=== PATIENT | male | born 1945 | race Caucasian/White ===

== ENCOUNTER 2016-11-04 12:07 | Emergency (ER) | payer OTHER ==
[~2016-11-04] VITALS: Ht 182.9 cm; Wt 87.3 kg
[2016-11-04 12:26] VITALS: BP 115/67; PULSE 80; RESP 18; TEMP 98; O2SAT 98
--- NOTE | 2016-11-04 13:33 | PD ---
HPI . left hand skin tear earlier today Chief Complaint: Skin Problem Time Seen by Provider: 14:00 Travel History International Travel<30 days: No Contact w/Intl Traveler<30days: No Traveled to known affect area: No History of Present Illness HPI 71-year-old male here with complaints of left hand abrasion/skin tear. Patient was unloading something out of his truck and the trunk fell down and hit his left hand. He tells me he did not want to come in but his forced him in here. He has a small abrasion to his left hand. He is not up-to-date on his tetanus and declines any injections or administrations of vaccines her medications. He is reiterating to me that he does not want to be here and needs to get out as soon as possible. He denies any pain. PFSH Past Medical History Cancer: Yes (thyroid) Cardiac Catheterization: Yes (3 stents) Hypertension: Yes Tetanus Vaccination: < 5 Years Influenza Vaccination: No Past Surgical History Appendectomy: Yes Other Surgery: Yes (thyroid cancer) Social History Alcohol Use: Yes (seldom) Tobacco Use: Yes (1 pk daily) Substance Use: No Allergies-Medications (Allergen,Severity, Reaction): Coded Allergies: Ampicillin (Verified Allergy, Mild, nausea/vomiting, 11/04/16) Reported Meds & Prescriptions Reported Meds & Active Scripts Active Active Prescriptions or Reported Medications Unobtainable Review of Systems General / Constitutional: No: Fever Eyes: No: Visual changes HENT: No: Headaches Cardiovascular: No: Chest Pain or Discomfort Respiratory: No: Shortness of Breath Gastrointestinal: No: Abdominal Pain Genitourinary: No: Dysuria Musculoskeletal: No: Pain Skin: Positive Other (skin tear left hand), No Rash Neurologic: No: Weakness Psychiatric: No: Depression Endocrine: No: Polydipsia Hematologic/Lymphatic: No: Easy Bruising Physical Exam Narrative GENERAL: AAO x 3, no acute distress, Well-nourished, well-developed patient. SKIN: Warm and dry. No visible rashes. Left dorsum of hand with small 5 cm circular skin tear, with hanging skin, very superficial, not amendable to repair with sutures. HEAD: Normocephalic and atraumatic. EYES: No scleral icterus. No injection or drainage. ENT: No nasal drainage noted. Mucous membranes pink. Airway patent. NECK: Supple, trachea midline. No JVD. CARDIOVASCULAR: Regular rate and rhythm without murmurs, gallops, or rubs. RESPIRATORY: Breath sounds equal bilaterally. No accessory muscle use. No rhonchi or rales. GASTROINTESTINAL: Abdomen soft, non-tender, nondistended. EXTREMITIES: No cyanosis or edema. BACK: Nontender without obvious deformity. No CVA tenderness. PSYCH: AAO x 3, normal affect. Data Data Last Documented VS Vital Signs Date Time Temp Pulse Resp B/P Pulse Ox O2 Delivery O2 Flow Rate FiO2 11/04/16 12:26 98.0 80 18 115/67 98 Orders Wound Care (11/04/16 13:35) MDM Medical Decision Making Medical Screen Exam Complete: Yes Emergency Medical Condition: Yes Medical Record Reviewed: Yes Differential Diagnosis skin abrasion, laceration, less likely cellulitis, Narrative Course 71-year-old male here with complaints of left hand abrasion/skin tear. Patient was unloading something out of his truck and the trunk fell down and hit his left hand. He tells me he did not want to come in but his forced him in here. He has a small abrasion to his left hand. He is not up-to-date on his tetanus and declines any injections or administrations of vaccines her medications. He is reiterating to me that he does not want to be here and needs to get out as soon as possible. He denies any pain. Patient seen and examined. He has a small skin tear to the left hand on the dorsum. Recommend general wound care. Area was cleaned with saline, antibiotic ointment and sterile dressing applied. declines tetanus wound care discussed Patient verbalized understanding of instructions, questions were answered, and thanked me for their care. I advised them if their condition worsens, please return to the nearest emergency room for further care. Diagnosis Primary Impression: Abrasion of left hand Qualified Code: S60.512A - Abrasion of left hand, initial encounter Patient Instructions: Acute Wound Care (ED), General Instructions Additional Instructions: [place] for worsening signs of infection which include increased redness, increased warmth, purulent drainage, increased swelling or streaking. Washing with soap and water daily. Apply clean dressing with topical antibiotic ointment daily. If any signs of infection, return to the nearest emergency department or follow- up with primary care provider. Follow up with your primary care provider in the next week. Scripts Unable to Obtain Active Prescriptions or Reported Meds Disposition: 01 DISCHARGE HOME Condition: Stable Yael Shirley Nov 04, 2016 13:33
== END 2016-11-04 14:24 | disposition home or self-care (01) ==
LOC: PHED 12:07 → PHEFT 14:24
DX: S60.512A Abrasion of left hand, initial encounter (principal); F17.210 Nicotine dependence, cigarettes, uncomplicated; I10 Essential (primary) hypertension; Z95.818 Presence of other cardiac implants and grafts
CPT/HCPCS: 99282

== ENCOUNTER 2017-04-14 21:05 | Observation (INO) | payer MEDICARE, OTHER ==
[~2017-04-14] VITALS: Ht 182.9 cm; Wt 84.7 kg
[2017-04-14 21:26] VITALS: BP 139/67; PULSE 83; RESP 18; TEMP 97.9
[2017-04-14] MEDS ORDERED: ATEN25TA PO (21:49)
[2017-04-14] MEDS ORDERED: HYDR-3516 PO (21:49)
[2017-04-14] MEDS ORDERED: LEVO125T4 PO (21:49)
[2017-04-14] MEDS ORDERED: LISI-515 PO (21:49)
[2017-04-14] MEDS ORDERED: ORPHENADRINE INJ 60 MG/2 ML AMP IM ONE (22:30)
[2017-04-14] MEDS ORDERED: KETOROLAC TROMETHAMINE 30 MG/ML (IVP) VIAL IV PUSH ONE (22:30)
[2017-04-14 22:45] LABS: BLOOD, URINE TRACE (NEG); GLUCOSE,URINE NEG (NEG); KETONE, URINE NEG (NEG); NITRITE,URINE NEG (NEG)
[2017-04-14 22:47] LABS: URINE COLOR YELLOW (YELLW/STRAW)
[2017-04-14 22:50] LABS: COMMENT (UR) CULT NOT INDICATED; CULTURE IF INDICATED CULT NOT INDICATED; RBC, URINE 0-3 /hpf (0-3); SQUAMOUS EPITHELIAL CELL URINE 0-5 /hpf (0-5); WBC, URINE 0-2 /hpf (0-5)
[2017-04-14] MEDS ORDERED: SODIUM CHLOR 0.9% 1000 ML INJ 1,000 ML IV ONE (22:53)
--- NOTE | 2017-04-14 23:00 | PD ---
HPI Chief Complaint: Musculoskeletal Complaint Time Seen by Provider: 22:29 Travel History International Travel<30 days: No Contact w/Intl Traveler<30days: No Traveled to known affect area: No History of Present Illness HPI 72-year-old male presents to the emergency room for evaluation of right-sided back pain for the past week. He went to his primary care physician 4 days ago and was given a prescription for tramadol. He called his primary care physician today to say that the prescription was not working and it was changed to Lortab. He last took Lortab a few hours prior to arrival and states it has not helped his pain at all. Patient also apply topical pain cream without relief. States it changed in quality from aching pain to spasms today. Pain is intermittent, sharp, severe. Worse with certain range of motion. No radiation. He has history of kidney stones 4 years ago and states this does not feel the same. Denies fever, chills, nausea, vomiting, dysuria, urgency, and frequency. PFSH Past Medical History Cancer: Yes (Thyroid) Cardiac Catheterization: Yes (3 stents) Cardiovascular Problems: Yes (Stents groin ) Hypertension: Yes Respiratory: Yes (Rt. lung mass) Tetanus Vaccination: > 5 Years Influenza Vaccination: No Past Surgical History Appendectomy: Yes Cholecystectomy: Yes Endocrine Surgery: Yes (Thyroidectomy ) Other Surgery: Yes (Face) Social History Alcohol Use: Yes (Occ.) Tobacco Use: No Substance Use: No Allergies-Medications (Allergen,Severity, Reaction): Coded Allergies: ampicillin (Unverified Adverse Reaction, Severe, N/V, 04/14/17) Reported Meds & Prescriptions Reported Meds & Active Scripts Active Reported Hydrocodone-Acetaminophen 5-325 mg Tab 1 Tab PO Q6H PRN Levothyroxine (Levothyroxine Sodium) 125 Mcg Tab 125 Mcg PO DAILY Atenolol 25 Mg Tab 25 Mg PO DAILY Lisinopril 20 Mg Tab 20 Mg PO DAILY Review of Systems Except as stated in HPI: all other systems reviewed are Neg Physical Exam Narrative GENERAL: Well-nourished, well-developed male in no acute distress. Afebrile. Ambulatory. SKIN: Focused skin assessment warm/dry. HEAD: Normocephalic. EYES: No scleral icterus. No injection or drainage. NECK: Supple, trachea midline. No JVD or lymphadenopathy. CARDIOVASCULAR: Regular rate and rhythm without murmurs, gallops, or rubs. RESPIRATORY: Breath sounds equal bilaterally. No accessory muscle use. BACK: No midline tenderness. No obvious deformity. Extreme right-sided CVA tenderness. Data Data Last Documented VS Vital Signs Date Time Temp Pulse Resp B/P (MAP) Pulse Ox O2 Delivery O2 Flow Rate FiO2 04/15/17 02:10 88 20 04/15/17 02:00 146/71 (96) 96 04/14/17 21:26 97.9 Orders Orders Urinalysis - C+S If Indicated (04/14/17 22:29) Orphenadrine Inj (Norflex Inj) (04/14/17 22:30) Ketorolac Inj (Toradol Inj) (04/14/17 22:30) Iv Access Insert/Monitor (04/14/17 22:29) Ct Abd/Pel W/O Iv Contrast (04/14/17 22:53) Sodium Chlor 0.9% 1000 Ml Inj (Ns 1000 M (04/14/17 22:53) Ketorolac Inj (Toradol Inj) (04/15/17 01:00) Hydromorphone Pf Inj (Dilaudid Pf Inj) (04/15/17 01:00) Ondansetron Inj (Zofran Inj) (04/15/17 01:00) Chest, Pa & Lat (04/15/17 01:32) Place In Observation (04/15/17 ) Vital Signs (Adult) Q4H (04/15/17 02:43) Activity Oob With Assistance (04/15/17 02:43) Desktop Support Engineer / Telemetry .CONTINUOUS (04/15/17 02:43) Diet Heart Healthy (04/15/17 Breakfast) Sodium Chloride 0.9% Flush (Ns Flush) (04/15/17 02:45) Sodium Chloride 0.9% Flush (Ns Flush) (04/15/17 09:00) Case Management Consult (04/15/17 02:43) Naloxone Inj (Narcan Inj) (04/15/17 02:45) Hydromorphone Pf Inj (Dilaudid Pf Inj) (04/15/17 02:45) Comprehensive Metabolic Panel (04/15/17 02:43) Complete Blood Count With Diff (04/15/17 02:43) Act Partial Throm Time (Ptt) (04/15/17 02:43) Prothrombin Time / Inr (Pt) (04/15/17 02:43) ^ Other Nursing Orders (04/15/17 02:43) Admit Order (Ed Use Only) (04/15/17 02:54) Labs Laboratory Tests Test 04/14/17 22:42 04/15/17 02:52 Urine Color YELLOW Urine Turbidity CLEAR Urine pH 6.0 Urine Specific [place] 1.020 Urine Protein NEG mg/dL Urine Glucose (UA) NEG mg/dL Urine Ketones NEG mg/dL Urine Occult Blood TRACE Urine Nitrite NEG Urine Bilirubin NEG Urine Leukocyte Esterase NEG Urine RBC 0-3 /hpf Urine WBC 0-2 /hpf Urine Squamous Epithelial Cells 0-5 /hpf Microscopic Urinalysis Comment CULT NOT INDICATED White Blood Count 17.8 TH/MM3 Red Blood Count 5.62 MIL/MM3 Hemoglobin 14.4 GM/DL Hematocrit 44.1 % Mean Corpuscular Volume 78.6 FL Mean Corpuscular Hemoglobin 25.5 PG Mean Corpuscular Hemoglobin Concent 32.5 % Red Cell Distribution Width 15.0 % Platelet Count 308 TH/MM3 Mean Platelet Volume 7.9 FL Neutrophils (%) (Auto) 79.4 % Lymphocytes (%) (Auto) 11.6 % Monocytes (%) (Auto) 6.4 % Eosinophils (%) (Auto) 1.4 % Basophils (%) (Auto) 1.2 % Neutrophils # (Auto) 14.2 TH/MM3 Lymphocytes # (Auto) 2.1 TH/MM3 Monocytes # (Auto) 1.1 TH/MM3 Eosinophils # (Auto) 0.2 TH/MM3 Basophils # (Auto) 0.2 TH/MM3 CBC Comment AUTO DIFF Differential Comment AUTO DIFF CONFIRMED Platelet Estimate NORMAL Platelet Morphology Comment NORMAL Prothrombin Time 10.7 SEC Prothromb Time International Ratio 1.0 RATIO Activated Partial Thromboplast Time 27.8 SEC Blood Urea Nitrogen 14 MG/DL Creatinine 0.86 MG/DL Random Glucose 120 MG/DL Total Protein 7.2 GM/DL Albumin 3.5 GM/DL Calcium Level 9.1 MG/DL Alkaline Phosphatase 110 U/L Aspartate Amino Transf (AST/SGOT) 37 U/L Alanine Aminotransferase (ALT/SGPT) 47 U/L Total Bilirubin 0.5 MG/DL Sodium Level 137 MEQ/L Potassium Level 4.1 MEQ/L Chloride Level 104 MEQ/L Carbon Dioxide Level 24.6 MEQ/L Anion Gap 8 MEQ/L Estimat Glomerular Filtration Rate 87 ML/MIN [facility] Medical Decision Making Medical Screen Exam Complete: Yes Emergency Medical Condition: Yes Medical Record Reviewed: Yes Differential Diagnosis Muscle spasm, nephrolithiasis, kidney infection, referred pain from lung Narrative Course 72-year-old male presents to the emergency room for evaluation of right-sided back pain for the past week that worsened over the past day. Denies trauma or injury. No midline tenderness. No focal neurological deficits. Patient is ambulatory. UA shows trace blood. CT abdomen and pelvis without contrast is ordered and pending. CBC and BMP are ordered and pending. Patient signed out to nighttime provider pending blood work and CT. Condition: Stable Anay De La Rosa Apr 14, 2017 23:00
--- NOTE | 2017-04-14 23:52 | RADRPT ---
EXAM DATE/TIME: 04/14/2017 23:06 [facility] COMPARISON: No previous studies available for comparison. INDICATIONS : Right upper quadrant pain, flank pain. ORAL CONTRAST: No oral contrast ingested. RADIATION DOSE: 17.57 CTDIvol (mGy) MEDICAL HISTORY : Hypertension. Right lung mass, stents in groin SURGICAL HISTORY : Appendectomy. Cholecystectomy. ENCOUNTER: Initial ACUITY: 1 day PAIN SCALE: 10/10 LOCATION: Right upper quadrant TECHNIQUE: Volumetric scanning of the abdomen and pelvis was performed. Using automated exposure control and ad justment of the mA and/or kV according to patient size, radiation dose was kept as low as reasonably achievable to obtain optimal diagnostic quality images. DICOM format image data is available electro nically for review and comparison. FINDINGS: LOWER LUNGS: Lung bases demonstrate no acute finding. LIVER: Homogeneous density without lesion. There is no dilation of the biliary tree. There is been prior c holecystectomy clips in the gallbladder fossa. SPLEEN: Normal size without lesion. PANCREAS: No acute abnormality. KIDNEYS: Normal in size and shape. There is no mass, stone, or hydronephrosis. There are 5 low density lesion s in the left kidney ranging in size from 9 mm up to 6.5 cm. These lesions have density measurements characteristic of simple cysts. Exophytically arising from the right mid kidney is a low density lesi on measuring 12 mm and there is an additional low-density lesion at the upper pole the right kidney m easuring 12 mm. Both of these also have density measurements characteristic of cysts. ADRENAL GLANDS: There is a right adrenal gland mass on the lateral limb measuring 13 mm. Hounsfield measurements are 41. A left adrenal gland mass arising from the inferior body and lateral limb measures 14 mm and has Hounsfield measurements of -3. VASCULAR: There is no aortic aneurysm. There is severe atherosclerotic disease of the infrarenal aorta. There a re bilateral common iliac artery stents. BOWEL/MESENTERY: The stomach, small bowel, and colon demonstrate no acute abnormality. There is no free intraperitone al air or fluid. There is sigmoid diverticulosis. ABDOMINAL WALL: No acute abnormality. There is a subcutaneous nodule in the right gluteal region measuring 12 mm. RETROPERITONEUM: There is no lymphadenopathy. BLADDER: No wall thickening or mass. REPRODUCTIVE: Mild prostatomegaly. INGUINAL: There is no lymphadenopathy or hernia. MUSCULOSKELETAL: There are degenerative changes of the lumbar spine but no acute osseous abnormality is present. CONCLUSION: 1. No acute findings identified to explain the right flank pain. 2. There are bilateral adrenal gland masses. The left adrenal gland mass has features diagnostic of a n adrenal adenoma. The right adrenal gland mass measures 13 mm and does not meet criteria for an peggy loco. Suggest correlating with any prior outside imaging studies. If none are available suggest six-mo nth followup noncontrast CT to confirm stability. 3. Nonacute findings include severe atherosclerotic disease, bilateral renal cysts, and sigmoid diver ticulosis. Paulino Leonardo MD on April 14, 2017 at 23:43 Board Certified Radiologist. This report was verified electronically.
[2017-04-15] VITALS (7 sets, daily range): BP systolic 134–155; BP diastolic 70–85; PULSE 76–92; RESP 18–20; TEMP 96.8–99.2; O2SAT 95–98
[2017-04-15] MEDS ORDERED: KETOROLAC TROMETHAMINE 60 MG/2 ML (IM) VIAL IM ONE (01:00)
[2017-04-15] MEDS ORDERED: ONDANSETRON HCL 4 MG/2 ML VIAL IM ONE (01:00)
[2017-04-15] MEDS ORDERED: HYDROmorphone HCL PF 1 MG/ML VIAL IM ONE (01:00)
--- NOTE | 2017-04-15 02:12 | RADRPT ---
EXAM DATE/TIME: 04/15/2017 01:46 [facility] COMPARISON: No previous studies available for comparison. INDICATIONS : Rib pain on right posterior side. MEDICAL HISTORY : Hypertension. Right lung mass, stents in groin SURGICAL HISTORY : Appendectomy. Cholecystectomy ENCOUNTER: Initial ACUITY: 1 day PAIN SCORE: 10/10 LOCATION: Right posterior ribs FINDINGS: AP and lateral views of the chest demonstrate a normal-sized cardiac silhouette with calcification of the aorta. There is partial obscuration of the left hemidiaphragm. Interstitial prominence is presen t bilaterally. There is atelectasis versus consolidation of the left lung base. No pneumothorax or pl eural effusion is visualized. Bones and soft tissues demonstrate no acute finding. CONCLUSION: Atelectasis versus mild consolidation at the left lung base. No pleural effusion is identified. No ac [place] osseous abnormality is identified. Paulino Leonardo MD on April 15, 2017 at 2:09 Board Certified Radiologist. This report was verified electronically.
[2017-04-15] MEDS ORDERED: SODIUM CHLORIDE 0.9% FLUSH 10 ML FLUSH IV FLUSH PRN (02:45)
[2017-04-15] MEDS ORDERED: NALOXONE HCL 0.4 MG/ML AMP IV PRN (02:45)
--- NOTE | 2017-04-15 02:54 | PD ---
Physical Exam Time Seen by Provider: 02:46 Narrative The physician trade sales assistant, Anay De La Rosa left this patient with me to check the CT scan results and make a disposition. Data Data Last Documented VS Vital Signs Date Time Temp Pulse Resp B/P (MAP) Pulse Ox O2 Delivery O2 Flow Rate FiO2 04/14/17 21:26 97.9 83 18 139/67 (91) Orders Orders Urinalysis - C+S If Indicated (04/14/17 22:29) Orphenadrine Inj (Norflex Inj) (04/14/17 22:30) Ketorolac Inj (Toradol Inj) (04/14/17 22:30) Iv Access Insert/Monitor (04/14/17 22:29) Complete Blood Count With Diff (04/14/17 22:53) Basic Metabolic Panel (Bmp) (04/14/17 22:53) Ct Abd/Pel W/O Iv Contrast (04/14/17 22:53) Sodium Chlor 0.9% 1000 Ml Inj (Ns 1000 M (04/14/17 22:53) Ketorolac Inj (Toradol Inj) (04/15/17 01:00) Hydromorphone Pf Inj (Dilaudid Pf Inj) (04/15/17 01:00) Ondansetron Inj (Zofran Inj) (04/15/17 01:00) Chest, Pa & Lat (04/15/17 01:32) Labs Laboratory Tests Test 04/14/17 22:42 Urine Color YELLOW Urine Turbidity CLEAR Urine pH 6.0 Urine Specific [place] 1.020 Urine Protein NEG mg/dL Urine Glucose (UA) NEG mg/dL Urine Ketones NEG mg/dL Urine Occult Blood TRACE Urine Nitrite NEG Urine Bilirubin NEG Urine Leukocyte Esterase NEG Urine RBC 0-3 /hpf Urine WBC 0-2 /hpf Urine Squamous Epithelial Cells 0-5 /hpf Microscopic Urinalysis Comment CULT NOT INDICATED MDM Medical Record Reviewed: Yes Supervised Visit with [place]: Yes Interpretation(s) The CT abdomen/pelvis without IV contrast shows no acute findings to explain the patient's right flank pain but there are bilateral adrenal gland masses characteristic of adrenal adenomas. Nonacute findings include severe atherosclerotic disease, bilateral renal cyst and sigmoid diverticulosis. The chest x-ray shows atelectasis versus pneumonia left lung base. No effusions or other infiltrate is noted and nothing is noted on the right side where the patient's pain is.The urine shows trace occult blood but is otherwise normal and culture is not indicated. Differential Diagnosis Acute cholecystitis, colitis, chest wall pain, pulmonary embolus-highly unlikely , pneumonia, pneumothorax, hemothorax Narrative Course The patient has chest wall pain which is intractable. He says he does not want to go home and end up laying on the floor in pain and having to come back. He wants to be admitted and his wants him to be admitted for control of the pain. He has tried pain medications at home prescribed by his primary care physician without success. The patient will be [address] Mejia. The urine shows trace occult blood but is otherwise normal and culture is not indicated. Physician Communication Physician Communication I discussed the patient with Dr. Mejia, the patient will be admitted for 23 hour observation to her. Diagnosis Primary Impression: Musculoskeletal pain Admitting Information Admitting Physician Requests: Observation Condition: Stable Jerome Bar MD Apr 15, 2017 02:54
[2017-04-15 03:01] LABS: AUTOMATED NEUTROPHIL # 14.2 TH/MM3 (1.8-7.7); BASOPHIL # 0.2 TH/MM3 (0-0.2); BASOPHIL % 1.2 % (0.0-2.0); EOSINOPHIL # 0.2 TH/MM3 (0-0.4); EOSINOPHIL % 1.4 % (0.0-4.0); HEMATOCRIT 44.1 % (39.0-51.0); LYMPH % 11.6 % (9.0-44.0); LYMPHOCYTE # 2.1 TH/MM3 (1.0-4.8); MEAN CELL VOLUME 78.6 FL (80.0-100.0); MEAN CORPUSCULAR HEMOGLOBIN 25.5 PG (27.0-34.0); MEAN CORPUSCULAR HGB CONC 32.5 % (32.0-36.0); MONO % 6.4 % (0.0-8.0); NEUT % 79.4 % (16.0-70.0); PLATELET COUNT 308 TH/MM3 (150-450); RED BLOOD COUNT 5.62 MIL/MM3 (4.50-5.90); WHITE BLOOD COUNT 17.8 TH/MM3 (4.0-11.0)
[2017-04-15 03:09] LABS: CHLORIDE 104 MEQ/L (98-107); POTASSIUM 4.1 MEQ/L (3.5-5.1); SODIUM (NA) 137 MEQ/L (136-145)
[2017-04-15 03:12] LABS: ANION GAP 8 MEQ/L (5-15); BICARBONATE 24.6 MEQ/L (21.0-32.0)
[2017-04-15 03:13] LABS: APTT (PATIENT) 27.8 SEC (24.3-30.1); BLOOD UREA NITROGEN 14 MG/DL (7-18); HEMO FLAGS AUTO DIFF; PROTHROMBIN TIME - PATIENT 10.7 SEC (9.8-11.6)
[2017-04-15 03:15] LABS: ALT (GPT) 47 U/L (12-78)
[2017-04-15 03:16] LABS: AST (GOT) 37 U/L (15-37); GLOMERULAR FILTRATION RATE 87 ML/MIN (>89)
[2017-04-15 03:17] LABS: TOTAL BILIRUBIN ADULT 0.5 MG/DL (0.2-1.0)
[2017-04-15 03:18] LABS: ALKALINE PHOSPHATASE 110 U/L (45-117)
[2017-04-15 03:28] LABS: PLATELET ESTIMATE SMEAR NORMAL (NORMAL); PLATELET MORPHOLOGY NORMAL (NORMAL); SCAN/DIFF AUTO DIFF CONFIRMED
[2017-04-15] MEDS: HYDROmorphone HCL PF 1 MG/ML VIAL IV PUSH PRN ×2 (06:29→10:45)
[2017-04-15] MEDS: SODIUM CHLORIDE 0.9% FLUSH 10 ML FLUSH IV FLUSH SCH ×2 (08:53→22:19)
--- NOTE | 2017-04-15 14:29 | HHI.HP ---
HPI Service [facility] Primary Care Physician Krishna Arteaga M.D. Admission Diagnosis musculoskeletal pain Diagnoses: Chief Complaint: back pain Travel History International Travel<30 Days: No Contact w/Intl Traveler <30 Da: No Traveled to Known Affected Are: No History of Present Illness 72 male with new lung mass being evaluated by his pcp and for biopsy next week complains of 1 week of right mid thoracic severe back pain and spasms not improved with recent tramadol or hydrocodone prescribed by his PCP. The pain was so severe he called 911. He is seen in his room with minimal pain after dilaudid. Review of Systems Constitutional: DENIES: Diaphoretic episodes, Fatigue, Fever, Weight gain, Weight loss, Chills, Dizziness, Change in appetite, Night Sweats Endocrine: DENIES: Heat/cold intolerance, Polydipsia, Polyuria, Polyphagia Eyes: DENIES: Blurred vision, Diplopia, Eye inflammation, Eye pain, Vision loss , Photosensitivity, Double Vision Ears, nose, mouth, throat: DENIES: Tinnitus, Hearing loss, Vertigo, Nasal discharge, Oral lesions, Throat pain, Hoarseness, Ear Pain, Running Nose, Epistaxis, Sinus Pain, Toothache, Odynophagia Respiratory: DENIES: Apneas, Cough, Snoring, Wheezing, Hemoptysis, Sputum production, Shortness of breath Cardiovascular: DENIES: Chest pain, Palpitations, Syncope, Dyspnea on Exertion , PND, Lower Extremity Edema, Orthopnea, Claudication Gastrointestinal: DENIES: Abdominal pain, Black stools, Bloody stools, Constipation, Diarrhea, Nausea, Vomiting, Difficulty Swallowing, Anorexia Musculoskeletal: COMPLAINS OF: Muscle aches, Back pain, DENIES: Joint pain, Stiffness, Joint Swelling, Neck pain Integumentary: DENIES: Abnormal pigmentation, Nail changes, Pruritus, Rash Hematologic/lymphatic: DENIES: Bruising, Lymphadenopathy Immunologic/allergic: DENIES: Eczema, Urticaria Neurologic: DENIES: Abnormal gait, Headache, Localized weakness, Paresthesias, Seizures, Speech Problems, Tremor, Poor Balance Except as stated in HPI: all other systems reviewed are Neg Past Family Social History Past Medical History thyoid ca HTN new lung mass sin ca Past Surgical History thyroidectomy Reported Medications reviewed in EMR, also tramadol Allergies: Coded Allergies: ampicillin (Unverified Adverse Reaction, Severe, N/V, 04/14/17) Active Ordered Medications reviewed in the EMR Family History Htn Social History No tobacco/etoh lives with spouse Physical Exam Vital Signs Vital Signs Date Time Temp Pulse Resp B/P (MAP) Pulse Ox O2 Delivery O2 Flow Rate FiO2 04/15/17 08:00 99.2 90 18 150/84 (106) 95 04/15/17 04:33 89 04/15/17 04:10 97.1 92 20 155/85 (108) 97 04/15/17 04:05 98.4 90 20 148/70 (96) 98 04/15/17 03:00 92 20 134/75 (94) 95 04/15/17 02:10 88 20 04/15/17 02:00 88 20 146/71 (96) 96 04/14/17 21:26 97.9 83 18 139/67 (91) Physical Exam GENERAL: This is a well-nourished, well-developed patient, in no apparent distress. SKIN: No rashes, ecchymoses or lesions. Cool and dry. HEAD: Atraumatic. Normocephalic. No temporal or scalp tenderness. EYES: Pupils equal round and reactive. Extraocular motions intact. No scleral icterus. No injection or drainage. ENT: Nose without bleeding, purulent drainage or septal hematoma. Throat without erythema, tonsillar hypertrophy or exudate. Uvula midline. Airway patent. NECK: Trachea midline. No JVD or lymphadenopathy. Supple, nontender, no meningeal signs. CARDIOVASCULAR: Regular rate and rhythm without murmurs, gallops, or rubs. RESPIRATORY: Clear to auscultation. Breath sounds equal bilaterally. No wheezes , rales, or rhonchi. GASTROINTESTINAL: Abdomen soft, non-tender, nondistended. No hepato-splenomegaly , or palpable masses. No guarding. MUSCULOSKELETAL: right thoracic pain with palpation. Extremities without clubbing, cyanosis, or edema. No joint tenderness, effusion, or edema noted. No calf tenderness. Negative Homans sign bilaterally. NEUROLOGICAL: Awake and alert. Cranial nerves II through XII intact. Motor and sensory grossly within normal limits. Five out of 5 muscle strength in all muscle groups. Normal speech. Laboratory Laboratory Tests Test 04/14/17 22:42 04/15/17 02:52 Urine Color YELLOW Urine Turbidity CLEAR Urine pH 6.[address] [place] [address] 1.020 Urine Protein NEG Urine Glucose (UA) NEG Urine Ketones NEG Urine Occult Blood TRACE Urine Nitrite NEG Urine Bilirubin NEG Urine Leukocyte Esterase NEG Urine RBC 0-3 Urine WBC 0-2 Urine Squamous Epithelial Cells 0-5 Microscopic Urinalysis Comment CULT NOT INDICATED White Blood Count 17.8 Red Blood Count 5.62 Hemoglobin 14.4 Hematocrit 44.1 Mean Corpuscular Volume 78.6 Mean Corpuscular Hemoglobin 25.5 Mean Corpuscular Hemoglobin Concent 32.5 Red Cell Distribution Width 15.0 Platelet Count 308 Mean Platelet Volume 7.9 Neutrophils (%) (Auto) 79.4 Lymphocytes (%) (Auto) 11.6 Monocytes (%) (Auto) 6.4 Eosinophils (%) (Auto) 1.4 Basophils (%) (Auto) 1.2 Neutrophils # (Auto) 14.2 Lymphocytes # (Auto) 2.1 Monocytes # (Auto) 1.1 Eosinophils # (Auto) 0.2 Basophils # (Auto) 0.2 CBC Comment AUTO DIFF Differential Comment AUTO DIFF CONFIRMED Platelet Estimate NORMAL Platelet Morphology Comment NORMAL Prothrombin Time 10.7 Prothromb Time International Ratio 1.0 Activated Partial Thromboplast Time 27.8 Blood Urea Nitrogen 14 Creatinine 0.86 Random Glucose 120 Total Protein 7.2 Albumin 3.5 Calcium Level 9.1 Alkaline Phosphatase 110 Aspartate Amino Transf (AST/SGOT) 37 Alanine Aminotransferase (ALT/SGPT) 47 Total Bilirubin 0.5 Sodium Level 137 Potassium Level 4.1 Chloride Level 104 Carbon Dioxide Level 24.6 Anion Gap 8 Estimat Glomerular Filtration Rate 87 Result Diagram: 04/15/17 0252 04/15/17 0252 Imaging Last Impressions Chest X-Ray 04/15/17 0132 Signed Impressions: Service Date/Time: Saturday, April 15, 2017 01:46 - CONCLUSION: Atelectasis versus mild consolidation at the left lung base. No pleural effusion is identified. No acute osseous abnormality is identified. Paulino Leonardo MD Abdomen/Pelvis CT 04/14/17 3921 Signed Impressions: Service Date/Time: March 23:06 - CONCLUSION: 1. No acute findings identified to explain the right flank pain. 2. There are bilateral adrenal gland masses. The left adrenal gland mass has features diagnostic of an adrenal adenoma. The right adrenal gland mass measures 13 mm and does not meet criteria for an adenoma. Suggest correlating with any prior outside imaging studies. If none are available suggest six-month followup noncontrast CT to confirm stability. 3. Nonacute findings include severe atherosclerotic disease , bilateral renal cysts, and sigmoid diverticulosis. Paulino Leonardo MD Assessment and Plan Problem List: (1) Musculoskeletal pain ICD Code: M79.1 - Myalgia Status: Acute Plan: follow up mri r/o radiculopathy or mass given new lung mass being evaluated lidocaine patch, IV Dilaudid f/u dc plans if nothing acute (2) HTN (hypertension) ICD Code: I10 - Essential (primary) hypertension Plan: resume home steffis Jewell Joyner MD Apr 15, 2017 14:28
[2017-04-15] MEDS: LISINOPRIL 20 MG TAB PO SCH (15:27)
[2017-04-15] MEDS: ATENOLOL 25 MG TAB PO SCH (15:28)
[2017-04-15] MEDS ORDERED: GADODIAMIDE PF 287 MG/ML 5 ML VIAL (for RAD MRI) IV PUSH ONE (18:10)
[2017-04-15] MEDS: LIDOCAINE HCL 5% PATCH T-DERMAL SCH (18:32)
--- NOTE | 2017-04-15 19:16 | RADRPT ---
EXAM DATE/TIME: 04/15/2017 17:32 [facility] COMPARISON: No previous studies available for comparison. INDICATIONS : Pain. CONTRAST: 15 cc Omniscan (gadodiamide) IV MEDICAL HISTORY : Carcinoma, thyroid. SURGICAL HISTORY : Thyroidectomy. Appendectomy. Cholecystectomy. ENCOUNTER: Initial ACUITY: 3 day PAIN SCORE: 5/10 LOCATION: Back TECHNIQUE: Multiplanar multisequence MRI of the thoracic spine was performed. FINDINGS: VERTEBRAE: There is abnormal signal seen in the superior aspect of the T1 vertebral body, throughou t the T7 vertebral body and at the superior aspect of the T10 vertebral body. There is increased sig nal within the T1, T4, T8 and T9 spinous processes. These areas are thought to represent metastatic disease. There is some mild bulging of the posterior inferior left lateral T7 vertebral margin but e xtension into the thecal sac is not clearly seen. The vertebral bodies are normal in height and normally aligned. The cord demonstrates normal signal. Significant stenosis is not seen throughout this study. CONCLUSION: Multiple bone lesions as described above. The largest lesion is at the T7 vertebral body. These are thought to represent metastatic foci. There is some minimal bulging of the posterio r inferior left lateral aspect of the T7 vertebral body but teddy invasion into the thecal sac is not seen. Collapse of the vertebral bodies is not seen. The involvement of nearly the entire T7 verteb ral body puts this level at risk for possible collapse. Paulino Ellsworth MD on April 15, 2017 at 19:03 Board Certified Radiologist. This report was verified electronically.
--- NOTE | 2017-04-15 19:46 | RADRPT ---
EXAM DATE/TIME: 04/15/2017 17:32 [facility] COMPARISON: CT ABDOMEN & PELVIS W/O CONTRAST, April 14, 2017, 23:06. INDICATIONS : Pain. CONTRAST: 15 cc Omniscan (gadodiamide) IV MEDICAL HISTORY : Carcinoma, thyroid. SURGICAL HISTORY : Thyroidectomy. Cholecystectomy. Appendectomy. ENCOUNTER: Initial ACUITY: 3 day PAIN SCORE: 5/10 LOCATION: Back TECHNIQUE: Multiplanar multisequence MRI of the lumbar spine was performed with and without contr ast. FINDINGS: The most caudal appearing lumbar vertebra is numbered as L5. VERTEBRAE: There is a focal bone lesion seen at the posterior superior aspect of the L3 vertebral body and at the anterior aspect of the S1 vertebral body concerning for metastatic lesions. There i s also a focal lesion seen at the L3 right superior facet concerning for metastatic disease. There i s abnormal signal seen in the anterior aspect of the inferior aspect of T4 and the superior aspect of L5. This region is most likely secondary to some degenerative change and type 1 endplate changes. The lumbar vertebral bodies are normal in height and normally aligned. CONUS: Normal level and configuration. POST CONTRAST: No abnormal areas of contrast enhancement are seen. T12-L1: The thecal sac has a normal diameter. No evidence of disc bulge or protrusion. The neural foramina are patent bilaterally. L1-L2: The thecal sac has a normal diameter. No evidence of disc bulge or protrusion. The neural f oramina are patent bilaterally. L2-L3: The thecal sac has a normal diameter. No evidence of disc bulge or protrusion. The neural f oramina are patent bilaterally. L3-L4: The thecal sac has a normal diameter. No evidence of disc bulge or protrusion. The neural f oramina are patent bilaterally. L4-L5: Disc demonstrates decreased signal. There is mild disc bulge. In addition there is a focal right lateral recess disc protrusion with an accompanying annular tear. This causes a mild impressio n on the anterior right side of the thecal sac. It can affect the L5 nerve root on the right at this level. The neural foramina are patent bilaterally. There is mild facet hypertrophy being worse on t he right. L5-S1: The posterior disc margin is grossly intact. A significant impression on the thecal sac is n ot seen. The neural foramina are normal. The thecal sac has an unusual appearance at the L5 level. There does appear to be a cystic area seen at the right spinal canal extending from the mid portion o f L5 to the S1-S2 level measuring 3.6 cm in length and 1.8 cm in AP dimension. I believe this is sep arate from the thecal sac. This could represent a perineural cyst such as a Tarlov cyst. It does ap pear the thecal sac is compressed at this level secondary to the cystic change and epidural fat. Thi s cystic collection does appear to cause an erosion at the posterior aspect of S1. This erosion sugg ests this is chronic. OTHER: There does appear to be a suspected large cyst at the left kidney. CONCLUSION: 1. Suspected metastatic lesions at the L3 vertebral body, right L3 superior facet, and the S1 vertebr al body. 2. Degenerative change at the L4-L5 level with mild disc bulge and a mild right disc protrusion causi ng an impression on the anterior right side of the thecal sac. 3. Suspected cystic areas seen at the spinal canal at the L5 through S1 levels causing compression of the thecal sac and an erosion on the S1 vertebral body. This could be a prominent perineural cyst/Ta rlov cyst. The erosion suggests this is chronic. Paulino Ellsworth MD on April 15, 2017 at 19:27 Board Certified Radiologist. This report was verified electronically.
[2017-04-15] MEDS: REMOVE OLD LIDOCAINE PATCH T-DERMAL SCH (21:00)
[2017-04-16 02:00] VITALS: BP 152/88; PULSE 76; RESP 16; TEMP 96; O2SAT 95
[2017-04-16 04:00] VITALS: BP 152/81; PULSE 76; RESP 18; TEMP 98.2; O2SAT 95
[2017-04-16] MEDS: LEVOTHYROXINE SODIUM 125 MCG TAB PO SCH (06:14)
[2017-04-16 06:34] LABS: AUTOMATED NEUTROPHIL # 7.1 TH/MM3 (1.8-7.7); BASOPHIL # 0.1 TH/MM3 (0-0.2); EOSINOPHIL # 0.4 TH/MM3 (0-0.4); EOSINOPHIL % 3.5 % (0.0-4.0); HEMATOCRIT 43.8 % (39.0-51.0); HEMO FLAGS DIFF FINAL; LYMPH % 20.7 % (9.0-44.0); LYMPHOCYTE # 2.3 TH/MM3 (1.0-4.8); MEAN CELL VOLUME 79.2 FL (80.0-100.0); MEAN CORPUSCULAR HEMOGLOBIN 25.7 PG (27.0-34.0); MEAN CORPUSCULAR HGB CONC 32.4 % (32.0-36.0); MONO % 9.6 % (0.0-8.0); NEUT % 65.2 % (16.0-70.0); PLATELET COUNT 271 TH/MM3 (150-450); RED BLOOD COUNT 5.53 MIL/MM3 (4.50-5.90); RED CELL DISTRIBUTION WIDTH 15.3 % (11.6-17.2)
[2017-04-16 08:54] VITALS: BP 120/78; PULSE 92; RESP 20; TEMP 97.4; O2SAT 97
[2017-04-16] MEDS: SODIUM CHLORIDE 0.9% FLUSH 10 ML FLUSH IV FLUSH SCH ×2 (09:53→20:55)
[2017-04-16] MEDS: LISINOPRIL 20 MG TAB PO SCH (09:53)
[2017-04-16] MEDS: LIDOCAINE HCL 5% PATCH T-DERMAL SCH (09:53)
[2017-04-16] MEDS: ATENOLOL 25 MG TAB PO SCH (09:53)
--- NOTE | 2017-04-16 10:17 | HHI.PR ---
Subjective Remarks Seen in follow up for back pain. Had a CT of the chest about a week ago which did show a lung mass which she was getting evaluated. Patient has had some improvement of the pain with the lidocaine patch. Did discuss findings with the patient was agreeable to further evaluation although he would like to avoid chemotherapy if it is indeed indicated. Objective Vitals Vital Signs Date Time Temp Pulse Resp B/P (MAP) Pulse Ox O2 Delivery O2 Flow Rate FiO2 04/16/17 08:54 97.4 92 20 120/78 (92) 97 04/16/17 04:00 98.2 76 18 152/81 (104) 95 04/16/17 02:00 96.0 76 16 152/88 (109) 95 04/15/17 20:00 96.8 76 18 144/85 (104) 98 I/O 04/15/17 04/15/17 04/15/17 04/16/17 04/16/17 04/16/17 07:00 15:00 23:00 07:00 15:00 23:00 Intake Total 2 ml 1064 ml 480 ml Output Total 300 ml Balance -300 ml 2 ml 1064 ml 480 ml Intake Oral 1060 ml 480 ml IV Total 2 ml 4 ml Output Urine Total 300 ml # Voids 1 7 2 # Bowel Movements 0 0 Result Diagram: 04/16/17 0605 04/15/17 0252 Imaging Last Impressions Chest X-Ray 04/15/17 0132 Signed Impressions: Service Date/Time: Saturday, April 15, 2017 01:46 - CONCLUSION: Atelectasis versus mild consolidation at the left lung base. No pleural effusion is identified. No acute osseous abnormality is identified. Paulino Leonardo MD Thoracic Spine MRI 04/15/17 0000 Signed Impressions: Service Date/Time: Saturday, April 15, 2017 17:32 - CONCLUSION: Multiple bone lesions as described above. The largest lesion is at the T7 vertebral body. These are thought to represent metastatic foci. There is some minimal bulging of the posterior inferior left lateral aspect of the T7 vertebral body but teddy invasion into the thecal sac is not seen. Collapse of the vertebral bodies is not seen. The involvement of nearly the entire T7 vertebral body puts this level at risk for possible collapse. Paulino Ellsworth MD Lumbar Spine MRI 04/15/17 0000 Signed Impressions: Service Date/Time: Saturday, April 15, 2017 17:32 - CONCLUSION: 1. Suspected metastatic lesions at the L3 vertebral body, right L3 superior facet, and the S1 vertebral body. 2. Degenerative change at the L4-L5 level with mild disc bulge and a mild right disc protrusion causing an impression on the anterior right side of the thecal sac. 3. Suspected cystic areas seen at the spinal canal at the L5 through S1 levels causing compression of the thecal sac and an erosion on the S1 vertebral body. This could be a prominent perineural cyst/Tarlov cyst. The erosion suggests this is chronic. Paulino Ellsworth MD Abdomen/Pelvis CT 04/14/17 2253 Signed Impressions: Service Date/Time: March 23:06 - CONCLUSION: 1. No acute findings identified to explain the right flank pain. 2. There are bilateral adrenal gland masses. The left adrenal gland mass has features diagnostic of an adrenal adenoma. The right adrenal gland mass measures 13 mm and does not meet criteria for an adenoma. Suggest correlating with any prior outside imaging studies. If none are available suggest six-month followup noncontrast CT to confirm stability. 3. Nonacute findings include severe atherosclerotic disease , bilateral renal cysts, and sigmoid diverticulosis. Paulino Leonardo MD Objective Remarks GENERAL: This is a well-nourished, well-developed patient, in no apparent distress. CARDIOVASCULAR: Regular rate and rhythm without murmurs, gallops, or rubs. RESPIRATORY: Clear to auscultation. Breath sounds equal bilaterally. No wheezes , rales, or rhonchi. GASTROINTESTINAL: Abdomen soft, non-tender, nondistended. Normal active bowel sounds MUSCULOSKELETAL: Extremities without clubbing, cyanosis, or edema. NEURO: Alert & Oriented x4 to person, place, time, situation. Moves all ext x4 A/P Problem List: (1) Musculoskeletal pain ICD Code: M79.1 - Myalgia Status: Acute Plan: Continue Dilaudid IV, lidocaine patch Follow-up with oncology due to metastatic nature of thoracic/lumbar vertebral lesions (2) HTN (hypertension) ICD Code: I10 - Essential (primary) hypertension Plan: controlled on home Jewell Guzmán MD Apr 16, 2017 10:17
[2017-04-16 10:45] VITALS: BP 115/81; PULSE 84; RESP 18; TEMP 98.2; O2SAT 95
[2017-04-16 15:00] VITALS: BP 143/83; PULSE 100; RESP 16; TEMP 98; O2SAT 95
[2017-04-16 20:00] VITALS: BP 125/81; PULSE 79; RESP 20; TEMP 97.2; O2SAT 97
[2017-04-16] MEDS: REMOVE OLD LIDOCAINE PATCH T-DERMAL SCH (21:00)
[2017-04-17 02:00] VITALS: BP 144/74; PULSE 84; RESP 20; TEMP 96.5; O2SAT 96
[2017-04-17 04:00] VITALS: BP 117/80; PULSE 83; RESP 20; TEMP 97.5; O2SAT 96
[2017-04-17] MEDS: LEVOTHYROXINE SODIUM 125 MCG TAB PO SCH (06:32)
[2017-04-17] MEDS: ATENOLOL 25 MG TAB PO SCH (08:38)
[2017-04-17] MEDS: LISINOPRIL 20 MG TAB PO SCH (08:39)
[2017-04-17] MEDS: LIDOCAINE HCL 5% PATCH T-DERMAL SCH (08:39)
[2017-04-17 08:40] VITALS: BP 115/79; PULSE 87; RESP 16; TEMP 98; O2SAT 98
[2017-04-17] MEDS: SODIUM CHLORIDE 0.9% FLUSH 10 ML FLUSH IV FLUSH SCH (08:40)
--- NOTE | 2017-04-17 09:03 | HHI.PR ---
Subjective Remarks patient seen in follow up for pathological vertebral pain likely related to malignancy pain better with dilaudid discussed with patient and spouse and RN Objective Vitals Vital Signs Date Time Temp Pulse Resp B/P (MAP) Pulse Ox O2 Delivery O2 Flow Rate FiO2 04/17/17 08:40 98.0 87 16 115/79 (91) 98 04/17/17 04:00 97.5 83 20 117/80 (92) 96 04/17/17 02:00 96.5 84 20 144/74 (97) 96 04/16/17 20:00 97.2 79 20 125/81 (96) 97 04/16/17 15:00 98.0 100 16 143/83 (103) 95 04/16/17 10:45 98.2 84 18 115/81 (92) 95 I/O 04/16/17 04/16/17 04/16/17 04/17/17 04/17/17 04/17/17 07:00 15:00 23:00 07:00 15:00 23:00 Intake Total 480 ml 980 ml 220 ml Balance 480 ml 980 ml 220 ml Intake Oral 480 ml 980 ml 220 ml # Voids 2 5 2 # Bowel Movements 0 1 0 Result Diagram: 04/16/17 0605 04/15/17 0252 Objective Remarks GENERAL: This is a well-nourished, well-developed patient, in no apparent distress. CARDIOVASCULAR: Regular rate and rhythm without murmurs, gallops, or rubs. RESPIRATORY: Clear to auscultation. Breath sounds equal bilaterally. No wheezes , rales, or rhonchi. GASTROINTESTINAL: Abdomen soft, non-tender, nondistended. Normal active bowel sounds MUSCULOSKELETAL: Extremities without clubbing, cyanosis, or edema. NEURO: Alert & Oriented x4 to person, place, time, situation. Moves all ext x4 A/P Problem List: (1) Musculoskeletal pain ICD Code: M79.1 - Myalgia Status: Acute Plan: Continue Dilaudid IV, lidocaine patch add po narcotics Follow-up with oncology due to probable metastatic nature of thoracic/lumbar vertebral lesions with new lung lesion (2) HTN (hypertension) ICD Code: I10 - Essential (primary) hypertension Plan: controlled on home steffis Jewell Joyner MD Apr 17, 2017 09:03
[2017-04-17] MEDS: HYDROmorphone HCL PF 1 MG/ML VIAL IV PUSH PRN ×2 (10:21→14:25)
--- NOTE | 2017-04-17 11:41 | HHI.PR ---
Subjective Remarks Patient seen and evaluated today in follow-up for back pain likely due to metastatic disease in the spine. Care plan discussed with oncology as well as neurosurgery. No surgical intervention needed at this time as there is no evidence of nerve compression. Although there is evidence of scattered metastases. 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 There is also some evidence of cervical spine disease and patient will need an MRI of the spine and likely vertebral body biopsy by interventional. This discussed with the patient was agreeable. Patient also is likely to need a biopsy of the lung lesion which he had scheduled on Tuesday at [facility] interventional department. In the meantime pain is better with IV Dilaudid which we have discussed using oral Dilaudid Objective Vitals Vital Signs Date Time Temp Pulse Resp B/P (MAP) Pulse Ox O2 Delivery O2 Flow Rate FiO2 04/17/17 08:40 98.0 87 16 115/79 (91) 98 04/17/17 04:00 97.5 83 20 117/80 (92) 96 04/17/17 02:00 96.5 84 20 144/74 (97) 96 04/16/17 20:00 97.2 79 20 125/81 (96) 97 04/16/17 15:00 98.0 100 16 143/83 (103) 95 I/O 04/16/17 04/16/17 04/16/17 04/17/17 04/17/17 04/17/17 06:59 14:59 22:59 06:59 14:59 22:59 Intake Total 480 ml 980 ml 220 ml Balance 480 ml 980 ml 220 ml Intake Oral 480 ml 980 ml 220 ml # Voids 2 5 2 # Bowel Movements 0 1 0 Result Diagram: 04/16/17 0605 04/15/17 0252 Objective Remarks GENERAL: This is a well-nourished, well-developed patient, in no apparent distress. CARDIOVASCULAR: Regular rate and rhythm without murmurs, gallops, or rubs. RESPIRATORY: Clear to auscultation. Breath sounds equal bilaterally. No wheezes , rales, or rhonchi. GASTROINTESTINAL: Abdomen soft, non-tender, nondistended. Normal active bowel sounds MUSCULOSKELETAL: Extremities without clubbing, cyanosis, or edema. NEURO: Alert & Oriented x4 to person, place, time, situation. Moves all ext x4 A/P Problem List: (1) Musculoskeletal pain ICD Code: M79.1 - Myalgia Status: Acute Plan: Continue Dilaudid po/ IV, lidocaine patch Follow-up with oncology due to probable metastatic nature of thoracic/lumbar vertebral lesions with new lung lesion No surgical intervention Patient will need biopsy Tuesday (2) HTN (hypertension) ICD Code: I10 - Essential (primary) hypertension Plan: controlled on home meds Jewell Joyner MD Apr 17, 2017 11:41
[2017-04-17] MEDS ORDERED: HYDROmorphone HCL 2 MG TAB PO PRN (11:45)
[2017-04-17 12:00] VITALS: BP 113/70; PULSE 72; RESP 16; TEMP 97.7; O2SAT 97
[2017-04-17] MEDS ORDERED: oxyCODONE/ACETAMINOPHEN 7.5 MG/325 MG TAB PO SCH (13:00)
[2017-04-17] MEDS ORDERED: LIDO5DIS5 T-DERMAL (13:29)
[2017-04-17] MEDS ORDERED: DILA2TAB2 PO (13:29)
--- NOTE | 2017-04-17 13:29 | HHI.DCPOC ---
Discharge Care Plan Diagnosis: (1) Musculoskeletal pain Goals to Promote Your Health * To prevent worsening of your condition and complications * To maintain your health at the optimal level Directions to Meet Your Goals Take your medications as prescribed Follow your dietary instruction Follow activity as directed Keep your appointments as scheduled Take your immunizations and boosters as scheduled If your symptoms worsen call your PCP, if no PCP go to Urgent Care Center or Emergency Room Smoking is Dangerous to Your Health. Avoid second hand smoke Call the 24-hour hour crisis hotline for domestic abuse at Jewell Joyner MD Apr 17, 2017 13:29
--- NOTE | 2017-04-17 13:31 | HHI.DS ---
Discharge Summary Admission Date Apr 15, 2017 at 02:56 Discharge Date: Apr 17, 2017 Admitting Diagnosis musculoskeletal pain (1) Musculoskeletal pain ICD Code: M79.1 - Myalgia Status: Acute (2) HTN (hypertension) ICD Code: I10 - Essential (primary) hypertension Procedures none Brief History - From Admission 72 male with new lung mass being evaluated by his pcp and for biopsy next week complains of 1 week of right mid thoracic severe back pain and spasms not improved with recent tramadol or hydrocodone prescribed by his PCP. The pain was so severe he called 911. He is seen in his room with minimal pain after dilaudid. CBC/BMP: 04/16/17 0605 04/15/17 0252 Significant Findings Laboratory Tests Test 04/14/17 22:42 04/15/17 02:52 04/16/17 06:05 White Blood Count 17.8 TH/MM3 (4.0-11.0) Mean Corpuscular Volume 78.6 FL (80.0-100.0) 79.2 FL (80.0-100.0) Mean Corpuscular Hemoglobin 25.5 PG (27.0-34.0) 25.7 PG (27.0-34.0) Neutrophils (%) (Auto) 79.4 % (16.0-70.0) Neutrophils # (Auto) 14.2 TH/MM3 (1.8-7.7) Monocytes # (Auto) 1.1 TH/MM3 (0-0.9) 1.1 TH/MM3 (0-0.9) Random Glucose 120 MG/DL (74-106) Estimat Glomerular Filtration Rate 87 ML/MIN (>89) Monocytes (%) (Auto) 9.6 % (0.0-8.0) PE at Discharge GENERAL: This is a well-nourished, well-developed patient, in no apparent distress. CARDIOVASCULAR: Regular rate and rhythm without murmurs, gallops, or rubs. RESPIRATORY: Clear to auscultation. Breath sounds equal bilaterally. No wheezes , rales, or rhonchi. GASTROINTESTINAL: Abdomen soft, non-tender, nondistended. Normal active bowel sounds MUSCULOSKELETAL: Extremities without clubbing, cyanosis, or edema. NEURO: Alert & Oriented x4 to person, place, time, situation. Moves all ext x4 Pt update on day of discharge Please see daily progress note Hospital Course Patient seen and evaluated for musculoskeletal pain thought to be due to thoracic and lumbar metastatic disease. Patient recommended for outpatient MRI of C-spine as well as to continue with plans for biopsy of the recently diagnosed pulmonary lesion. Pain has been controlled with lidocaine and Dilaudid. Blood pressures been controlled. Patient was seen by hematology. I did discuss care plan with neurosurgery who felt no surgical intervention was necessary at this time and continued evaluation for the long nodule was most appropriate. Patient and his were made aware of this plan and are agreeable. Pt Condition on Discharge: Good Discharge Disposition: Discharge Home Discharge Time: > 30 minutes Discharge Instructions DIET: Follow Instructions for: As Tolerated, No Restrictions Activities you can perform: Regular-No Restrictions, See Additionl Instruction Other Activity Instructions: no heavy lifting Follow up Referrals: Appointment for Follow Up - 04/19/17 New Medications: Hydromorphone (Dilaudid) 2 Mg Tab 2 MG PO Q6H PRN for pain, #60 TAB Lidocaine (Lidoderm) 5 % Adh..patch 1 PATCH T-DERMAL DAILY for Pain Management, #20 PATCH 12 hrs on 12 hrs off Continued Medications: Atenolol (Atenolol) 25 Mg Tab 25 MG PO DAILY for Blood Pressure Management, #30 TAB Hydrocodone-Acetaminophen (Hydrocodone-Acetaminophen) 5-325 mg Tab 1 TAB PO Q6H PRN for PAIN, TAB 0 Refills Levothyroxine (Levothyroxine) 125 Mcg Tab 125 MCG PO DAILY for Thyroid, #30 TAB 0 Refills Lisinopril (Lisinopril) 20 Mg Tab 20 MG PO DAILY, #30 TAB 0 Refills Jewell Joyner MD Apr 17, 2017 13:31
--- NOTE | 2017-04-17 14:09 | MB ---
cc: BRANDI MORALES JOSHUA R. M.D. DATE OF CONSULTATION: 04/17/2017. REASON FOR CONSULTATION: Patient with imaging study findings of a pleural-based right lung mass measuring 2.5 cm. Additional imaging studies of the lumbar spine indicate findings concerning for metastatic disease involving the L3 vertebral body and the S1 vertebral body as well. PRIMARY CARE PHYSICIAN: Dr. Krishna Arteaga. CONSULT REQUESTED BY: The Hospitalist Service. CHIEF COMPLAINT: Midline lower back pain with radiation to the right lumbar area and the right gluteal area. The patient likens the pain to a sharp and severe cramp. HISTORY OF PRESENT ILLNESS: Mr. Abbott is a very pleasant 72-year-old male with a 60+ pack/year history of smoking (He was actively smoking until this hospitalization). Mr. Abbott reports being in his usual fair state of health up until about six months ago. At about that time he began to notice on and off back pain and thought this was related to arthritis. He also began to notice a soft tissue mass involving the right shoulder / right deltoid muscle. This area became increasingly painful and he reported these symptoms to his primary care physician who ordered a plain film x-ray of the right shoulder. The right shoulder x-ray room also imaged the right lung field and incidentally noted on that scan was a nodule involving the right lower lung field. A CT scan was subsequently done and a pleural-based nodule measuring 2.5 cm was appreciated, and this appeared to have a hollow / necrotic center. The patient had been scheduled to undergo outpatient CT-guided biopsy of the right pleural-based lung mass on 04/19/2017 at [facility]. Over the course of this past week, the patient noted increasing lower back pain. He tells me the pain became excruciating on 04/15/2017 and felt as if it was a severe cramp in his lower back and at times was stabbing in nature as well. He reports also having had some difficulty getting up out of a chair due to weakness of his right leg. He presented to [facility] in [place] and underwent MRI studies of the lumbar spine, the L3 vertebral body and S1 vertebral body indicated lesions concerning for metastatic deposits. There are also degenerative changes noted at L4-5 with a mild disc bulge. The patient was initiated on pain medications and feels much improved. The hematology service has been consulted for any additional work up which may be required. PAST MEDICAL HISTORY: 1. Sixty-plus pack/year history of tobaccoism. 2. Peripheral arterial disease of the lower extremities. 3. Thyroid cancer diagnosed in 1985. 4. Chronic left bundle branch block. 5. Hypothyroidism (surgical). PAST SURGICAL HISTORY: 1. Complete thyroidectomy in 1985 for thyroid carcinoma. 2. Lower extremity arterial stent placement. 3. Cholecystectomy and appendectomy about forty years ago. 4. 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 FAMILY HISTORY: Father of metastatic colon cancer, brother also had intestinal cancer, the patient suspects it was colon cancer. The mom at an advanced age of natural causes. ALLERGIES: AMPICILLIN. SOCIAL HISTORY: The patient is a retired banker, he is a current smoker, he lives at home with his . He previously served in the [employer] and served in [employer] time in [employer]. CURRENT IMPATIENT MEDICATIONS: 1. Atenolol 25 milligrams daily. 2. Colace 100 milligrams p.o. twice a day. 3. Dilaudid 2 milligrams p.o. q. 6 hours as needed for pain. 4. Levothyroxine 125 micrograms daily. 5. Lisinopril 20 milligrams once a day. 6. Nicotine transdermal patches. REVIEW OF SYSTEMS: A thirteen-point review of systems was obtained and the following are the pertinent positives and negatives: CONSTITUTIONAL: The patient denies fevers, chills, night sweats. He denies weight loss, loss of appetite. HEAD, EYES, EARS, NOSE, THROAT: Denies headaches, blurry vision, difficulty swallowing or soreness in the throat. RESPIRATORY: Denies difficulty breathing, cough or hemoptysis. CARDIOVASCULAR: Denies angina-like chest pain, PND, orthopnea. GI: Denies nausea, vomiting, diarrhea hematochezia, melena. MUSCULOSKELETAL: Reports lower back pain and lower back cramps. GENITOURINARY: No complaints of dysuria, hematuria, urinary incontinence or stool incontinence. RUBBER ROLLER GRINDER: Denies any focal sensory motor deficits. PHYSICAL EXAMINATION: VITAL SIGNS: Temperature 97.7 degrees Fahrenheit, heart rate 72 beats per minute, respiratory rate 16, blood pressure 113/70, 02 saturations are 97% on room air. GENERAL PHYSICAL APPEARANCE: Mr. Abbott is a middle-aged / elderly male, he is of medium height and moderate build and he appears to be no acute distress and has a pleasant disposition. HEAD, EYES, EARS, NOSE, THROAT: Head atraumatic, normocephalic, conjunctivae are not pale. sclerae are anicteric. Extraocular muscles intact. Pupils equal, round and reactive to light and accommodation. Oral exam with no pharyngeal erythema. NECK: No palpable cervical or supraclavicular adenopathy. RESPIRATORY EXAM: Good air movement bilaterally without any added breath sounds. Prolonged expiratory phase. CARDIOVASCULAR: Regular rate and rhythm, S1-S2. No obvious murmurs, gallops. ABDOMEN: The abdomen is protuberant, it is soft, there is some tenderness on the right side in the periumbilical area. No masses are noted, specifically no hepatosplenomegaly. EXTREMITIES: No pretibial edema. No calf tenderness. RUBBER ROLLER GRINDER: No focal sensory or motor deficits. LABORATORY FINDINGS: CBC dated 04/16/2017: WBC count 11, hemoglobin 14.2 gm/dl, hematocrit 43.8%, MCV 79.2, MCH is 25.7, platelet count is 271,000, absolute neutrophil count is 7.1. Chemistries: Sodium 137, potassium 4.1, chloride 104, bicarb 25, BUN 14, creatinine 0.86, EGFR 87 mL/minute, random glucose 120, calcium 9.1, total bilirubin 0.5, AST 37, ALT 47, alkaline phosphatase 110, albumin 3.5. IMAGING STUDIES: MRI of the lumbar spine dated 04/15/2017 indicates suspected metastatic disease to the L3 and S1 vertebral bodies. Degenerative changes at L4-L5 with mild disc bulge and mild right disc protrusion causing an impression on the anterior right side of the thecal sac. Suspected cystic areas seen in the spinal canal at L5-S1 causing compression of the thecal sac and erosion into the S1 vertebral body. This could be a prominent perineural cyst / Tarlov cyst. The erosion suggests this is chronic. CT scan of the abdomen and pelvis dated 04/14/2017 indicates no acute findings identified to explain the right-sided flank pain. There are bilateral adrenal gland masses. The left adrenal gland mass has features diagnostic of an adrenal adenoma. The right adrenal gland mass measures 13 mm and does not meet criteria for an adenoma. Suggest correlating with any prior outside imaging studies. Nonacute findings include severe atherosclerotic disease, bilateral renal cysts and a sigmoid colon diverticulosis. ASSESSMENT: Mr. Abbott is a 72-year-old male who had been in the process of undergoing an outpatient workup for a right lung nodule / mass measuring 2.5 cm. This nodule in the right lung was incidentally noted when he underwent an x-ray of the right shoulder for evaluation of pain. He has no respiratory symptoms. The patient is however a long-time smoker with a 60+ pack/year history of smoking. Over the course of past several days, he did develop severe lower back pain and was admitted to the hospital here at [facility] for this reason. MRI of the lumbar spine indicated possible metastatic disease to the L3 and S1 vertebral bodies. The cause of the back pain was likely degenerative disc disease with protrusion at the L4-L5 level with disk protrusion causing an impression on the anterior right thecal sac. The patient's case was evaluated by our on-call neurosurgeon remotely who advised an outpatient workup as opposed inpatient neurosurgical evaluation given the lack of evidence to suggest an emergent / impending neurovascular or neurologic issue. RECOMMENDATIONS: 1. Right lung nodule: Agree with outpatient biopsy; this will be performed on 04/19/2017. 2. MRI findings of the lumbar vertebral body possible metastatic disease: This may also need a biopsy. Should he be found to have malignancy in the right lung, it is likely that he has metastatic disease to the spine as well. Possible treatment options may include radiation. Additionally, he will require full body imaging studies for staging such as a PET/ CT scan. I have offered to see t he patient in my outpatient clinic. The patient and his , however would like to consult with Dr. Arteaga, who has been the primary physician for both the patient and his and they would prefer to follow up per Dr. Arteaga's recommendations. I will try to reach Dr. Arteaga early next week to update him on the recent findings on the scans. MD DAMARI Patel/EDISON /1:14 PM /1:43 PM DARIUS
[2017-04-17] MEDS ORDERED: DOCUSATE SODIUM 100 MG CAP PO SCH (21:00)
== END 2017-04-17 15:14 | disposition home or self-care (01) ==
LOC: PHEFT 21:05 → PHEDA 04-15 02:56 → PH5A 04-15 03:50
PROVIDERS: ADMIT Hospitalist; ATTEND Hospitalist
DX: M79.1 Myalgia (principal); D35.00 Benign neoplasm of unspecified adrenal gland; E03.9 Hypothyroidism, unspecified; R91.8 Other nonspecific abnormal finding of lung field; I10 Essential (primary) hypertension; N28.1 Cyst of kidney, acquired; I73.9 Peripheral vascular disease, unspecified; K57.30 Diverticulosis of large intestine without perforation or abscess without bleeding; Z85.850 Personal history of malignant neoplasm of thyroid; F17.200 Nicotine dependence, unspecified, uncomplicated; J98.11 Atelectasis; M51.26 Other intervertebral disc displacement, lumbar region; Z87.442 Personal history of urinary calculi
CPT/HCPCS: 71020; 72157; 72158; 74176; 80053; 81001; 85025; 85610; 85730; 96374; 96375; 96376; 99285; A9579; G0378; J1170; J2360; J2405

== ENCOUNTER 2017-05-04 12:01 | Inpatient (IN) | payer OTHER, MEDICARE ==
[~2017-05-04] VITALS: Ht 185.4 cm; Wt 82.0 kg
[~2017-05-04 12:01] MED LIST: ATEN25TA PO; DILA2TAB2 PO; HYDR-3516 PO; LEVO125T4 PO; LIDO5DIS5 T-DERMAL; LISI-515 PO
[2017-05-04 12:04] VITALS: BP 127/60; PULSE 89; RESP 12; TEMP 97.7; O2SAT 97
--- NOTE | 2017-05-04 12:11 | PD ---
Physical Exam Date Seen by Provider: May 04, 2017 Time Seen by Provider: 12:05 Narrative 72-year-old white male presents to emergency department accompanied by family for evaluation of pain. Patient has metastatic adenocarcinoma of the lung. He was advised by Dr. Muñoz to come to the ER for management of his pain. He has an appointment today at 2:15 to see the radiation oncologist. No recent trauma. Patient had a recent squamous cell carcinoma removed from his scalp. Still has daysi in place. Patient's pain is severe. Worse with movement. Vital signs reviewed. Awaiting bed placement. Data Data Last Documented VS Vital Signs Date Time Temp Pulse Resp B/P (MAP) Pulse Ox O2 Delivery O2 Flow Rate FiO2 05/04/17 12:04 97.7 89 12 127/60 (82) 97 MDM Medical Record Reviewed: No Supervised Visit with [place]: Zachary Srivastava May 04, 2017 12:11
[2017-05-04] MEDS ORDERED: MORP1TAB24 PO (12:23)
[2017-05-04] MEDS ORDERED: CHOL5000 PO (12:23)
[2017-05-04] MEDS ORDERED: SENN8.6T36 PO (12:23)
[2017-05-04] MEDS ORDERED: HYDROmorphone HCL PF 1 MG/ML VIAL IV PUSH ONE (12:30)
[2017-05-04] MEDS ORDERED: ONDANSETRON HCL 4 MG/2 ML VIAL IV PUSH ONE (12:30)
--- NOTE | 2017-05-04 12:34 | PD ---
HPI Chief Complaint: Pain: Acute or Chronic Time Seen by Provider: 12:20 Travel History International Travel<30 days: No Contact w/Intl Traveler<30days: No Traveled to known affect area: No History of Present Illness HPI This is a 72-year-old male with recently discovered metastatic adenocarcinoma of the lung who presents for evaluation of pain. For the past several weeks the patient has been having pain in the arms, back, right leg. The patient underwent testing was found to have metastatic adenocarcinoma of the lung with metastasis in the spine, as well as a rounded soft tissue mass in the lateral deltoid of the right side. The patient consult and with oncologist Dr. Mayo and today he has a scheduled appointment with radiation oncology at 2:30 PM today. For pain control he is currently on a regimen of morphine 15 mg bid, Dilaudid 2 mg qid, Tylenol, none of which is helping with his pain. He called Dr. Mclaughlin office today and was referred here. In addition the patient recently had skin resection from the scalp by a government affairs fellow Dr. Holman and he would like him to be contacted in order to try to facilitate having daysi removed from the occipital scalp. The patient does report a little bit of increased weakness in the right leg over the past several days. He denies any bowel or bladder incontinence or saddle anesthesia. He does report that he has been constipated over the past 4 days. He has no other complaints. PFSH Past Medical History Autoimmune Disease: No Cancer: Yes (Thyroid, BACK OF HEAD TO BE REMOVED 03/31) Cardiac Catheterization: Yes (3 stents) Cardiovascular Problems: Yes High Cholesterol: Yes Diabetes: No Endocrine: No Genitourinary: No Hypertension: Yes Immune Disorder: No Musculoskeletal: Yes Neurologic: No Psychiatric: No Reproductive: No Respiratory: No ?: Not Past Surgical History Abdominal Surgery: Yes (CHOLECYSTECTOMY, APPENDECTOMY) Appendectomy: Yes Cardiac Surgery: Yes (3 STENTS) Cholecystectomy: Yes Endocrine Surgery: Yes (Thyroidectomy ) Other Surgery: Yes (Face) Social History Alcohol Use: Yes (occ) Tobacco Use: No Substance Use: No Allergies-Medications (Allergen,Severity, Reaction): Coded Allergies: ampicillin (Unverified Adverse Reaction, Severe, N/V, 04/14/17) Reported Meds & Prescriptions Reported Meds & Active Scripts Active Dilaudid (Hydromorphone HCl) 2 Mg Tab 2 Mg PO Q6H PRN Lidoderm (Lidocaine) 5 % Adh..patch 1 Patch T-DERMAL DAILY 12 hrs on 12 hrs off Reported Senna-Tabs (Sennosides) 8.6 Mg Tab 8.6 Mg PO BID Morphine ER (Morphine Sulfate) 15 Mg Tab 15 Mg PO BID Vitamin D3 (Cholecalciferol) 5,000 Unit Cap 5,000 Units PO DAILY Levothyroxine (Levothyroxine Sodium) 125 Mcg Tab 125 Mcg PO DAILY Atenolol 25 Mg Tab 25 Mg PO DAILY Lisinopril 20 Mg Tab 20 Mg PO DAILY Review of Systems Except as stated in HPI: all other systems reviewed are Neg Physical Exam Narrative GENERAL: Pleasant well-developed well-nourished male who appears uncomfortable on initial examination. SKIN: Warm and dry. Multiple daysi are in place on the occipital scalp. HEAD: Skin as noted above Normocephalic. EYES: Pupils equal and round. No scleral icterus. No injection or drainage. ENT: No nasal bleeding or discharge. Mucous membranes pink and moist. NECK: Trachea midline. No JVD. CARDIOVASCULAR: Regular rate and rhythm. No murmur appreciated. RESPIRATORY: No accessory muscle use. Clear to auscultation. Breath sounds equal bilaterally. GASTROINTESTINAL: Abdomen soft, non-tender, nondistended. Hepatic and splenic margins not palpable. MUSCULOSKELETAL: No obvious deformities. Tenderness to palpation along the lumbar spine. There is no lower extremity edema. There is back pain when attempting a sitting position while in the bed. NEUROLOGICAL: Awake and alert. No obvious cranial nerve deficits. Motor grossly within normal limits. Normal speech. No ankle clonus, 1+ Achilles/ patellar reflex bilaterally, 5 out of 5 muscle strength at flexion, leg flexion and extension, dorsi and plantar flexion, extensor hallucis longus bilaterally. Data Data Last Documented VS Vital Signs Date Time Temp Pulse Resp B/P (MAP) Pulse Ox O2 Delivery O2 Flow Rate FiO2 05/04/17 12:04 97.7 89 12 127/60 (82) 97 Orders Orders Hydromorphone Pf Inj (Dilaudid Pf Inj) (05/04/17 12:30) Ecg Monitoring (05/04/17 12:27) Ondansetron Inj (Zofran Inj) (05/04/17 12:30) Mri L Spine W&W/O Contrast (05/04/17 ) Mri Sacrum/Coccyx W&W/O Cont (05/04/17 ) Complete Blood Count With Diff (05/04/17 13:11) Basic Metabolic Panel (Bmp) (05/04/17 13:11) Act Partial Throm Time (Ptt) (05/04/17 13:11) Prothrombin Time / Inr (Pt) (05/04/17 13:11) Dexamethasone Inj (Decadron Inj) (05/04/17 13:15) Lorazepam Inj (Ativan Inj) (05/04/17 13:30) Admit Order (Ed Use Only) (05/04/17 14:28) Labs Laboratory Tests Test 05/04/17 13:30 White Blood Count 14.1 TH/MM3 Red Blood Count 5.53 MIL/MM3 Hemoglobin 14.2 GM/DL Hematocrit 44.2 % Mean Corpuscular Volume 80.0 FL Mean Corpuscular Hemoglobin 25.7 PG Mean Corpuscular Hemoglobin Concent 32.2 % Red Cell Distribution Width 16.4 % Platelet Count 255 TH/MM3 Mean Platelet Volume 8.0 FL Neutrophils (%) (Auto) 77.7 % Lymphocytes (%) (Auto) 13.0 % Monocytes (%) (Auto) 6.0 % Eosinophils (%) (Auto) 2.8 % Basophils (%) (Auto) 0.5 % Neutrophils # (Auto) 11.0 TH/MM3 Lymphocytes # (Auto) 1.8 TH/MM3 Monocytes # (Auto) 0.9 TH/MM3 Eosinophils # (Auto) 0.4 TH/MM3 Basophils # (Auto) 0.1 TH/MM3 CBC Comment DIFF FINAL Differential Comment Prothrombin Time 10.7 SEC Prothromb Time International Ratio 1.0 RATIO Activated Partial Thromboplast Time 24.8 SEC Blood Urea Nitrogen 21 MG/DL Creatinine 0.97 MG/DL Random Glucose 113 MG/DL Calcium Level 9.8 MG/DL Sodium Level 140 MEQ/L Potassium Level 4.3 MEQ/L Chloride Level 104 MEQ/L Carbon Dioxide Level 28.3 MEQ/L Anion Gap 8 MEQ/L Estimat Glomerular Filtration Rate 76 ML/MIN MDM Medical Decision Making Medical Screen Exam Complete: Yes Emergency Medical Condition: Yes Medical Record Reviewed: Yes Differential Diagnosis Metastatic malignancy, intractable pain, medication adjustment Narrative Course The community outreach coordinator was able to discuss with the nurse at Dr. Holman's office and they would like the patient to reschedule the appointment for Tuesday to have the wound rechecked prior to stable removal. A page has been placed for Dr. Mayo. 1315: Discussed the case with oncologist Dr. Mayo who requests that the patient be admitted for pain control and request MRI of the lumbar spine, sacrum with contrast, likely neurosurgery consultation during his hospitalization and he would also like the patient be given 6 mg of Decadron IV. Discussed these recommendations with the patient and his family who are agreeable. Diagnosis Primary Impression: Intractable pain Additional Impression: Metastatic adenocarcinoma to lung Qualified Codes: C78.00 - Secondary malignant neoplasm of unspecified lung Admitting Information Admitting Physician Requests: Jarred Avila May 04, 2017 12:34
[2017-05-04] MEDS ORDERED: DEXAMETHASONE SOD PHOS 4 MG/ML VIAL IV PUSH ONE (13:15)
[2017-05-04] MEDS ORDERED: LORazepam 2 MG/ML VIAL IV PUSH ONE (13:30)
[2017-05-04 13:45] LABS: BASOPHIL # 0.1 TH/MM3 (0-0.2); BASOPHIL % 0.5 % (0.0-2.0); EOSINOPHIL # 0.4 TH/MM3 (0-0.4); EOSINOPHIL % 2.8 % (0.0-4.0); HEMATOCRIT 44.2 % (39.0-51.0); HEMO FLAGS DIFF FINAL; LYMPHOCYTE # 1.8 TH/MM3 (1.0-4.8); MEAN CORPUSCULAR HEMOGLOBIN 25.7 PG (27.0-34.0); MEAN CORPUSCULAR HGB CONC 32.2 % (32.0-36.0); NEUT % 77.7 % (16.0-70.0); PLATELET COUNT 255 TH/MM3 (150-450); RED BLOOD COUNT 5.53 MIL/MM3 (4.50-5.90); RED CELL DISTRIBUTION WIDTH 16.4 % (11.6-17.2); WHITE BLOOD COUNT 14.1 TH/MM3 (4.0-11.0)
[2017-05-04 13:59] LABS: APTT (PATIENT) 24.8 SEC (24.3-30.1); PROTHROMBIN TIME - PATIENT 10.7 SEC (9.8-11.6)
[2017-05-04 14:07] LABS: BICARBONATE 28.3 MEQ/L (21.0-32.0); POTASSIUM 4.3 MEQ/L (3.5-5.1)
--- NOTE | 2017-05-04 15:09 | PD ---
Data Data Last Documented VS Vital Signs Date Time Temp Pulse Resp B/P (MAP) Pulse Ox O2 Delivery O2 Flow Rate FiO2 05/04/17 12:04 97.7 89 12 127/60 (82) 97 Orders Orders Hydromorphone Pf Inj (Dilaudid Pf Inj) (05/04/17 12:30) Ecg Monitoring (05/04/17 12:27) Ondansetron Inj (Zofran Inj) (05/04/17 12:30) Mri L Spine W&W/O Contrast (05/04/17 ) Mri Sacrum/Coccyx W&W/O Cont (05/04/17 ) Complete Blood Count With Diff (05/04/17 13:11) Basic Metabolic Panel (Bmp) (05/04/17 13:11) Act Partial Throm Time (Ptt) (05/04/17 13:11) Prothrombin Time / Inr (Pt) (05/04/17 13:11) Dexamethasone Inj (Decadron Inj) (05/04/17 13:15) Lorazepam Inj (Ativan Inj) (05/04/17 13:30) Admit Order (Ed Use Only) (05/04/17 14:28) Labs Laboratory Tests Test 05/04/17 13:30 White Blood Count 14.1 TH/MM3 Red Blood Count 5.53 MIL/MM3 Hemoglobin 14.2 GM/DL Hematocrit 44.2 % Mean Corpuscular Volume 80.0 FL Mean Corpuscular Hemoglobin 25.7 PG Mean Corpuscular Hemoglobin Concent 32.2 % Red Cell Distribution Width 16.4 % Platelet Count 255 TH/MM3 Mean Platelet Volume 8.0 FL Neutrophils (%) (Auto) 77.7 % Lymphocytes (%) (Auto) 13.0 % Monocytes (%) (Auto) 6.0 % Eosinophils (%) (Auto) 2.8 % Basophils (%) (Auto) 0.5 % Neutrophils # (Auto) 11.0 TH/MM3 Lymphocytes # (Auto) 1.8 TH/MM3 Monocytes # (Auto) 0.9 TH/MM3 Eosinophils # (Auto) 0.4 TH/MM3 Basophils # (Auto) 0.1 TH/MM3 CBC Comment DIFF FINAL Differential Comment Prothrombin Time 10.7 SEC Prothromb Time International Ratio 1.0 RATIO Activated Partial Thromboplast Time 24.8 SEC Blood Urea Nitrogen 21 MG/DL Creatinine 0.97 MG/DL Random Glucose 113 MG/DL Calcium Level 9.8 MG/DL Sodium Level 140 MEQ/L Potassium Level 4.3 MEQ/L Chloride Level 104 MEQ/L Carbon Dioxide Level 28.3 MEQ/L Anion Gap 8 MEQ/L Estimat Glomerular Filtration Rate 76 ML/MIN MDM Supervised Visit with [place]: Yes Narrative Course The history, exam, and medical decision-making in the associated mid-level provider note were completed with my assistance. I reviewed and agree with the findings presented. I attest that I had a [id number] encounter with the patient on the same day, and personally performed and documented my assessment and findings in the medical record. *My assessment and Findings: 72-year-old man, intractable pain related to malignancy. We'll plan on MRI and admission. Looks well. Diagnosis Primary Impression: Intractable pain Additional Impression: Metastatic adenocarcinoma to lung Qualified Codes: C78.00 - Secondary malignant neoplasm of unspecified lung Jim Mendez MD May 04, 2017 15:09
[2017-05-04] MEDS ORDERED: GADODIAMIDE PF 287 MG/ML 20 ML VIAL (for RAD MRI) IVCONTRAST ONE (15:28)
--- NOTE | 2017-05-04 16:10 | RADRPT ---
EXAM DATE/TIME: 05/04/2017 14:33 [facility] COMPARISON: MRI LUMBAR SPINE W & W/O CONTRAST, April 15, 2017, 17:32. INDICATIONS : Metastatic disease. Back and leg pain. CONTRAST: 19 cc Omniscan (gadodiamide) IV MEDICAL HISTORY : Hypertension. Carcinoma, lung. SURGICAL HISTORY : Cholecystectomy. Appendectomy. Thyroidectomy. Stents in groin and eye repair. ENCOUNTER: Subsequent ACUITY: 2 months PAIN SCORE: 7/10 LOCATION: Back. TECHNIQUE: Multiplanar multisequence MRI of the lumbar spine was performed with and without contrast. FINDINGS: Sagittal T1, T2 and postcontrast T1-weighted imaging is provided. The post contrast imaging demonstrates abnormal contrast enhancement involving the S1 vertebral body, the superior endplate of L3 these findings are suspicious for metastatic disease. No significant los s of vertebral body height to indicate compression fracture is identified. T12/L1: The thecal space and neural foramina are adequate. No significant abnormality is identified. L1/L2: The thecal space and neural foramina are adequate. No significant abnormality is identified. L2/L3: There is mild facet arthritis bilaterally. The thecal space and foramina are adequate. L3/L4: There is mild facet arthritis bilaterally. There is no significant disc bulge or protrusion. The thec al space and foramina are adequate. L4/L5: There is a central and right paracentral disc protrusion with disc evident encroaching upon the later al recess and base of the foramina on the right. The foramina on the left is adequate. There is mild facet arthritis bilaterally. L5/S1: There is a degenerated disc. There is mild facet arthritis bilaterally. Note is made of a sizable Tar susu cyst which begins at the level of L5/S1 disc and extends inferiorly. This is similar in appearanc e to the previous examination. There is no enhancement around this. CONCLUSION: 1. The post contrast imaging demonstrates abnormal enhancement involving the L3 and S1 vertebral bodi es concerning for metastatic disease. Of note, the enhancement in L3 extends back to the pedicle and the articular facets on the right side. There is a very subtle edema in the superior endplate of L3 p robably related to the metastatic disease. No significant loss of vertebral body height is identified . 2. Degenerated disc at L4-5. 3. 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 4. Overall appearance the exam is stable compared to the previous dated 04/15/17. 5. Stable compared to previous examination. Gautam Mathias MD on May 04, 2017 at 15:59 Board Certified Radiologist. This report was verified electronically.
[2017-05-04 16:33] VITALS: BP 107/59; PULSE 80; RESP 18; TEMP 98.2; O2SAT 95
--- NOTE | 2017-05-04 16:46 | RADRPT ---
EXAM DATE/TIME: 05/04/2017 14:33 [facility] COMPARISON: MRI LUMBAR SPINE W & W/O CONTRAST, April 15, 2017, 17:32. INDICATIONS : Metastatic disease. Back pain. CONTRAST: 19 cc Omniscan (gadodiamide) IV MEDICAL HISTORY : Carcinoma, lung. Hypertension. SURGICAL HISTORY : Appendectomy. Cholecystectomy. Thyroidectomy. Stent in groin and eye repair. ENCOUNTER: Subsequent ACUITY: 1 month PAIN SCORE: 6/10 LOCATION: Lower back. TECHNIQUE: Multiplanar multisequence MRI examination of the sacrum/coccyx was performed. FINDINGS: The post contrast T1-weighted images demonstrate areas of abnormal enhancement involving the posterio r ilium on the right, the right acetabulum, the ilium on the left and the central aspect of the sacru m. All of these findings are consistent with metastatic disease. No findings to indicate acute sacral fracture are identified. The sacroiliac joints are intact bilate rally. Note is made of a large Tarlov cyst overlying the sacrum. The soft tissues of the pelvis appear intact. The prostate is enlarged measuring 5.0 x 3.8 cm. The ca psule appears intact. No adenopathy is seen within the pelvis. CONCLUSION: 1. There are metastatic lesions are evident involving both ilium, the right acetabulum and the centra l aspect of the sacrum. No findings to indicate insufficiency fracture are identified. 2. Enlargement of the prostate. Gautam Mathias MD on May 04, 2017 at 16:40 Board Certified Radiologist. This report was verified electronically.
[2017-05-04 18:02] VITALS: BP 142/74
--- NOTE | 2017-05-04 18:04 | HHI.HP ---
HPI Service [facility] Primary Care Physician Unknown Admission Diagnosis intractable pain, adenocarcinoma of the lung Diagnoses: Chief Complaint: Pain Travel History International Travel<30 Days: No Contact w/Intl Traveler <30 Da: No Traveled to Known Affected Are: No History of Present Illness Written by Rene Childers PA-C, acting as scribe for Dr. Narayan Denise on at 17:50. Mr. Abbott is 72 yo, with history of metastatic adenocarcinoma of the lung (diagnosed early April,), thyroid cancer, hypothyroidism, peripheral artery disease of the lower extremities, left bundle branch block. hyperlipidemia, and hypertension. Pt's oncologist is Dr. Mayo. 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 Holman ( approximately 8 days ago). Mr. Abbott reported having pain 2 weeks ago and was seen at [facility]. Imaging studies determine the presence of a right lung tumor. Dr. Mayo was consulted at that time and began further workup. Pt's pain was reportedly treated with Dilaudid and morphine. Today, pt was to be seen by radiation oncology to address pain issues. However, pt's pain has been worsening despite taking his aforementioned oral pain relievers and pt called Dr. Mayo's office as pain was 10/10. Pt was instructed to come to [facility] for evaluation and management of pain. Pt received Dilaudid and Decadron from ED team and pt improved. Pt noted his pain worsens with movement. Upon interview, pt noted having a "minor cough", decreased ambulation (using a walker has become more painful), decreased appetite, and constipation (last bowel movement was reported to have occurred on 05/03/17). Oral agents to treat his constipation were reported to be ineffective. Pt denied fever, nausea, vomiting , shortness of breath, abdominal pain, chest pain, dysuria. A 10 point ROS was conducted and,except as noted above was negative. Review of Systems Constitutional: COMPLAINS OF: Change in appetite, DENIES: Fever, Weight gain, Weight loss Endocrine: DENIES: Polyuria, Polyphagia Eyes: DENIES: Blurred vision, Vision loss Ears, nose, mouth, throat: DENIES: Hearing loss, Throat pain Respiratory: COMPLAINS OF: Cough, DENIES: Shortness of breath Cardiovascular: DENIES: Chest pain, Dyspnea on Exertion, Lower Extremity Edema Gastrointestinal: COMPLAINS OF: Constipation, DENIES: Abdominal pain, Black stools, Nausea, Vomiting Genitourinary: DENIES: Urinary frequency, Dysuria Musculoskeletal: COMPLAINS OF: Muscle aches, Back pain Integumentary: DENIES: Pruritus, Rash Neurologic: COMPLAINS OF: Abnormal gait, Localized weakness, Poor Balance Psychiatric: DENIES: Confusion, Depression Past Family Social History Past Medical History history of metastatic adenocarcinoma of the lung (diagnosed early April,), t hyroid cancer, hypothyroidism, peripheral artery disease of the lower extremities, left bundle branch block. hyperlipidemia, hypertension. 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 Jose Cruz remain and are to be removed this Tuesday (05/06/17). cholecystectomy appendectomy thyroidectomy Reported Medications Reported Meds & Active Scripts Active Dilaudid (Hydromorphone HCl) 2 Mg Tab 2 Mg PO Q6H PRN Lidoderm (Lidocaine) 5 % Adh..patch 1 Patch T-DERMAL DAILY 12 hrs on 12 hrs off Reported Senna-Tabs (Sennosides) 8.6 Mg Tab 8.6 Mg PO BID Morphine ER (Morphine Sulfate) 15 Mg Tab 15 Mg PO BID Vitamin D3 (Cholecalciferol) 5,000 Unit Cap 5,000 Units PO DAILY Levothyroxine (Levothyroxine Sodium) 125 Mcg Tab 125 Mcg PO DAILY Atenolol 25 Mg Tab 25 Mg PO DAILY Lisinopril 20 Mg Tab 20 Mg PO DAILY Allergies: Coded Allergies: ampicillin (Unverified Adverse Reaction, Severe, N/V, 04/14/17) Active Ordered Medications Current Medications Medications (Trade) Dose Ordered Sig/Theron Route Start Time Stop Time Status Last Admin Sodium Chloride 1,000 ml @ 75 mls/hr [id number] IV 05/04/17 18:20 UNV (NS Flush) 2 ml UNSCH PRN IV FLUSH 05/04/17 18:30 (NS Flush) 2 ml BID IV FLUSH 05/04/17 21:00 (Tylenol) 650 mg Q4H PRN PO 05/04/17 18:30 UNV (Zofran Inj) 4 mg Q6H PRN IVP 05/04/17 18:30 UNV (Heparin Inj) 5,000 units Q8H SQ 05/04/17 18:30 UNV (Narcan Inj) 0.4 mg UNSCH PRN IV PUSH 05/04/17 18:30 UNV (Hilaria-Colace) 1 tab BID PO 05/04/17 21:00 UNV (Milk Of Magnesia Liq) 30 ml Q12H PRN PO 05/04/17 18:30 UNV (Senokot) 17.2 mg Q12H PRN PO 05/04/17 18:30 UNV (Dulcolax Supp) 10 mg DAILY PRN RECTAL 05/04/17 18:30 UNV (Lactulose Liq) 30 ml DAILY PRN PO 05/04/17 18:30 UNV (Morphine Inj) 2 mg Q3H PRN IV PUSH 05/04/17 18:30 UNV (Morphine Inj) 4 mg Q3H PRN IV PUSH 05/04/17 18:30 UNV (Decadron) 4 mg Q6HR PO 05/05/17 00:00 UNV (Miralax) 17 gm ONCE ONCE PO 05/04/17 18:30 05/04/17 18:31 UNV Family History Father of colon cancer. Brother of cancer (pt uncertain of stomach or colon cancer). Mother at advanced age of natural causes. Social History Occasional alcohol usage. 60 plus pack-year history; patient reportedly stopped smoking 3 weeks ago. Recreational/illicit drug use was denied. Physical Exam Vital Signs Vital Signs Date Time Temp Pulse Resp B/P (MAP) Pulse Ox O2 Delivery O2 Flow Rate FiO2 05/04/17 16:33 98.2 80 18 107/59 (75) 95 Room Air 05/04/17 12:04 97.7 89 12 127/60 (82) 97 Physical Exam GENERAL: This is a well-nourished, well-developed patient, laying flat on his back , in no apparent distress. SKIN: No rashes, ecchymoses or lesions. Cool and dry. HEAD: Atraumatic. Normocephalic. No temporal or scalp tenderness. EYES: Pupils equal round and reactive. Extraocular motions intact. No scleral icterus. No injection or drainage. ENT: Nose without bleedingor purulent drainage. Airway patent. NECK: Trachea midline. No lymphadenopathy. Supple and nontender. CARDIOVASCULAR: Regular rate and rhythm without murmurs, gallops, or rubs. RESPIRATORY: Clear to auscultation. Breath sounds equal bilaterally. No wheezes , rales, or rhonchi. GASTROINTESTINAL: Abdomen soft, non-tender, nondistended. No hepato- splenomegaly or guarding. MUSCULOSKELETAL: Extremities without clubbing, cyanosis, or edema. No joint tenderness, effusion, or edema noted. NEUROLOGICAL: Awake and alert. Cranial nerves II through XII intact. Motor and sensory grossly within normal limits. Five out of 5 muscle strength in all muscle groups. Speech was clear and fluent. Laboratory Laboratory Tests Test 05/04/17 13:30 White Blood Count 14.1 Red Blood Count 5.53 Hemoglobin 14.2 Hematocrit 44.2 Mean Corpuscular Volume 80.0 Mean Corpuscular Hemoglobin 25.7 Mean Corpuscular Hemoglobin Concent 32.2 Red Cell Distribution Width 16.4 Platelet Count 255 Mean Platelet Volume 8.0 Neutrophils (%) (Auto) 77.7 Lymphocytes (%) (Auto) 13.0 Monocytes (%) (Auto) 6.0 Eosinophils (%) (Auto) 2.8 Basophils (%) (Auto) 0.5 Neutrophils # (Auto) 11.0 Lymphocytes # (Auto) 1.8 Monocytes # (Auto) 0.9 Eosinophils # (Auto) 0.4 Basophils # (Auto) 0.1 CBC Comment DIFF FINAL Differential Comment Prothrombin Time 10.7 Prothromb Time International Ratio 1.0 Activated Partial Thromboplast Time 24.8 Blood Urea Nitrogen 21 Creatinine 0.97 Random Glucose 113 Calcium Level 9.8 Sodium Level 140 Potassium Level 4.3 Chloride Level 104 Carbon Dioxide Level 28.3 Anion Gap 8 Estimat Glomerular Filtration Rate 76 Result Diagram: 05/04/17 1330 05/04/17 1330 Imaging Last Impressions Sacrum/Coccyx MRI 05/04/17 0000 Signed Impressions: Service Date/Time: Thursday, May 04, 2017 14:33 - CONCLUSION: 1. There are metastatic lesions are evident involving both ilium, the right acetabulum and the central aspect of the sacrum. No findings to indicate insufficiency fracture are identified. 2. Enlargement of the prostate. Gautam Mathias MD Lumbar Spine MRI 05/04/17 0000 Signed Impressions: Service Date/Time: Thursday, May 04, 2017 14:33 - CONCLUSION: 1. The post contrast imaging demonstrates abnormal enhancement involving the L3 and S1 vertebral bodies concerning for metastatic disease. Of note, the enhancement in L3 extends back to the pedicle and the articular facets on the right side. There is a very subtle edema in the superior endplate of L3 probably related to the metastatic disease. No significant loss of vertebral body height is identified. 2. Degenerated disc at L4-5. 3. 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 4. Overall appearance the exam is stable compared to the previous dated 04/15/17. 5. Stable compared to previous examination. MD Yarely Fowler VTE Risk Assessment Caprini VTE Risk Assessment: Mod/High Risk (score >= 2) Caprini Risk Assessment Model Point Value = 1 Point Value = 2 Point Value = 3 Point Value = 5 Age 41-60 Minor surgery BMI > 25 kg/m2 Swollen legs Varicose veins or History of unexplained or recurrent spontaneous Oral contraceptives or hormone replacement Sepsis (< 1 month) Serious lung disease, including pneumonia (< 1 month) Abnormal pulmonary function Acute myocardial infarction Congestive heart failure (< 1 month) History of inflammatory bowel disease Medical patient at bed rest Age 61-74 Arthroscopic surgery Major open surgery (> 45 min) Laparoscopic surgery (> 45 min) Malignancy Confined to bed (> 72 hours) Immobilizing plaster cast Central venous access Age >= 75 History of VTE Family history of VTE Factor V Leiden Prothrombin [id number] Lupus anticoagulant Anticardiolipin antibodies Elevated serum homocysteine Heparin-induced thrombocytopenia Other congenital or acquired thrombophilia Stroke (< 1 month) Elective arthroplasty Hip, pelvis, or leg fracture Acute spinal cord injury (< 1 month) Prophylaxis Regimen Total Risk Factor Score Risk Level Prophylaxis Regimen 0-1 Low Early ambulation 2 Moderate Order ONE of the following: *Sequential Compression Device (SCD) *Heparin 5000 units SQ BID 3-4 Higher Order ONE of the following medications: *Heparin 5000 units SQ TID *Enoxaparin/Lovenox 40 mg SQ daily (WT < 150 kg, CrCl > 30 mL/min) *Enoxaparin/Lovenox 30 mg SQ daily (WT < 150 kg, CrCl > 10-29 mL/min) *Enoxaparin/Lovenox 30 mg SQ BID (WT < 150 kg, CrCl > 30 mL/min) AND/OR *Sequential Compression Device (SCD) 5 or more Highest Order ONE of the following medications: *Heparin 5000 units SQ TID (Preferred with Epidurals) *Enoxaparin/Lovenox 40 mg SQ daily (WT < 150 kg, CrCl > 30 mL/min) *Enoxaparin/Lovenox 30 mg SQ daily (WT < 150 kg, CrCl > 10-29 mL/min) *Enoxaparin/Lovenox 30 mg SQ BID (WT < 150 kg, CrCl > 30 mL/min) AND *Sequential Compression Device (SCD) Assessment and Plan Assessment and Plan Mr. Abbott is 72 yo, with history of metastatic adenocarcinoma of the lung (diagnosed early April,), thyroid cancer, hypothyroidism, peripheral artery disease of the lower extremities, left bundle branch block. hyperlipidemia, and hypertension. Pt's oncologist is Dr. Mayo. 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 Holman ( approximately 8 days ago). Pain Metastatic cancer -Admit to inpatient service. -Morphine IV when necessary. -Dexamethasone 4mg by mouth q 6 hrs. -Consult Dr. Mayo, oncologist -Consult neurosurgery Constipation -Hilaria-colace 1 tablet by mouth twice daily. -Milk of Magnesia 30 ml by mouth q 12 hrs as needed (mild constipation). -Senokot 17.2 mg by mouth q 12 hrs as needed (moderate severe constipation) -Ducolax 10 mg per rectum daily as needed (severe constipation) -Lactulose 30 ml per mouth daily as needed (severe constipation). -Sodium chloride 1000 ml @ 75 ml/hr Diet -Healthy heart DVT prophylaxis: -SCD's -Heparin 500 units sq q 8 hrs Discussed Condition With This note was transcribed by teodora Childers. I, Dr. Wilbert Perez personally performed the history, physical exam, and medical decision making; and confirmed the accuracy of the information in the transcribed note. Authenticated by Dr. Wilbert Perez on 05/04/17 at 18:05. Physician Certification 2 Midnight Certification Type: Admission for Inpatient Services Order for Inpatient Services The services are ordered in accordance with Medicare regulations or non- Medicare payer requirements, as applicable. In the case of services not specified as inpatient-only, they are appropriately provided as inpatient services in accordance with the 2-midnight benchmark. Estimated LOS (days): 3 Three days is the estimated time the patient will need to remain in the hospital , assuming treatment plan goals are met and no additional complications. Post-Hospital Plan: Home Rene Childers Jr. May 04, 2017 18:04 Wilbert Resendiz MD May 04, 2017 18:05
[2017-05-04 18:30] VITALS: BP 139/76; PULSE 85; RESP 16; TEMP 96.9; O2SAT 95
[2017-05-04] MEDS ORDERED: NALOXONE HCL 0.4 MG/ML AMP IV PUSH PRN (18:30)
[2017-05-04] MEDS ORDERED: MAGNESIUM HYDROXIDE SUSP 30 ML CUP PO PRN (18:30)
[2017-05-04] MEDS ORDERED: BISACODYL 10 MG SUPP RECTAL PRN (18:30)
[2017-05-04] MEDS ORDERED: LACTULOSE SYRUP 20 GM/30 ML CUP PO PRN (18:30)
[2017-05-04] MEDS ORDERED: MORPHINE SULFATE 4 MG/ML INJ IV PUSH PRN (18:30)
[2017-05-04] MEDS ORDERED: POLYETHYLENE GLYCOL 17 GM PKG PO ONE (18:30)
[2017-05-04] MEDS ORDERED: ACETAMINOPHEN 325 MG TAB PO PRN (18:30)
[2017-05-04] MEDS ORDERED: SENNOSIDES 8.6 MG TAB PO PRN (18:30)
[2017-05-04] MEDS ORDERED: ONDANSETRON HCL 4 MG/2 ML VIAL IVP PRN (18:30)
[2017-05-04] MEDS ORDERED: SODIUM CHLORIDE 0.9% FLUSH 10 ML FLUSH IV FLUSH PRN (18:30)
[2017-05-04 20:00] VITALS: BP 119/68; PULSE 86; RESP 17; TEMP 98.6; O2SAT 96
[2017-05-04] MEDS: HEPARIN SODIUM - SQ 10,000 UNITS/ML VIAL SQ SCH (21:07)
[2017-05-04] MEDS: DOCUSATE SODIUM 50 MG/SENNA 8.6 MG TAB PO SCH (21:08)
[2017-05-04] MEDS: SODIUM CHLORIDE 0.9% FLUSH 10 ML FLUSH IV FLUSH SCH (21:08)
[2017-05-04] MEDS: SODIUM CHLOR 0.45% 1000 ML INJ 1,000 ML IV SCH (21:13)
[2017-05-04] MEDS: MORPHINE SULFATE 4 MG/ML INJ IV PUSH PRN (21:23)
--- NOTE | 2017-05-04 23:11 | MB ---
cc: ERIKA PRIDE MD DATE OF CONSULTATION: 05/04/2017 DATE OF : 1945 REASON FOR CONSULTATION: Metastatic lung adenocarcinoma admitted with back pain. HISTORY OF PRESENT ILLNESS: Mr. Abbott is a 72 year-old gentleman with a history of cutaneous squamous cell carcinoma, metastatic lung cancer, peripheral arterial disease, and thyroid cancer in the , status post thyroidectomy, who was admitted to the hospital with worsening of lower back pain. He reports that he had been taking morphine sulfate 15 mg twice a day with as needed hydromorphone, however this medication regimen id not help to relieve his pain. He was due to be seen today by radiation oncology to discuss radiation to the lower spine, however, he was unable to attend due to pain and he went to the hospital for further evaluation and management. He reports that his pain is worse when he is up and moving. He reports that his strength is intact, however, it is limited only secondary to pain. He was recently hospitalized two weeks ago with a new diagnosis of metastatic lung adenocarcinoma Imaging studies during past hospitalization showed a pleural based lung nodule measuring 2.5 cm, a soft tissue mass along the right shoulder and metastatic bony lesions. He was discharged from hospital and biopsy of right lung mass was performed at the [facility]. Pathology revealed mucin producing adenocarcinoma. He has seen Dr. Mayo in clinic and studies including PDL1, ALK, EGFR and ROS1 are pending on the biopsy specimen. MRI of the lumbar spine from May 04, 2017, showed abnormal enhancement involving the L3 and S1 vertebral bodies, concerning for metastatic disease with the L3 extending back to the pedicle and the articular facets on the right side with edema in the superior end plate of L3 probably related to metastatic disease. Radiologist noted the CT is stable compared to the previous exam dated April 15. He was started on dexamethasone and neurosurgery was consulted. PAST MEDICAL HISTORY: 1. Thyroid cancer in the , status post thyroidectomy. 2. Metastatic lung cancer. 3. Hyperthyroidism. 4. Peripheral artery disease. 5. Hyperlipidemia. 6. Hypertension. 7. Squamous cell carcinoma of the scalp, status post resection. 8. Left bundle-branch block. PAST SURGICAL HISTORY: 1. 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 Holman. 2. Cholecystectomy. 3. Appendectomy. 4. Thyroidectomy. OUTPATIENT MEDICATIONS: 1. Dilaudid. 2. As needed hydromorphone. 3. Extended release morphine 15 milligrams twice daily. 4. Sennosides 5. Levothyroxine. 6. Atenolol. 7. Lisinopril. ALLERGIES: AMPICILLIN SOCIAL HISTORY The patient has a longstanding history of tobacco abuse. He has a good support system with his family. FAMILY HISTORY: Family history is significant for father with colon cancer. REVIEW OF SYSTEMS: GI: Constipation. Musculoskeletal and neurologic: Back pain that radiates down his legs. General: Fatigue, weight loss, decreased appetite. All other review of systems negative. PHYSICAL EXAMINATION General: Well-developed, well-nourished man in no distress, resting in bed. Head: Normocephalic, scarring present on the posterior head from squamous cell carcinoma removal. ENT: Oropharynx clear. Cardiovascular: Regular rate and rhythm with no murmurs. Neck: Supple with no palpable lymphadenopathy. Lungs: Clear to auscultation bilaterally. Abdomen: Soft, nontender, nondistended with bowel sounds present. Extremities: No edema. Neuro exam: Sensation intact. Strength intact in the bilateral upper and lower extremities. Psych: Appropriate mood and affect. Musculoskeletal: Back pain present exacerbated by certain movements. ASSESSMENT AND PLAN: 1. Metastatic lung adenocarcinoma: He follows in the clinic with Dr. Mayo. EGFR, ALK and ROS1 mutation status pendng. PDL1 status of tumor also pending. Discussed with the patient that after biopsy this takes approximately two weeks to return. Once these results are returned he will follow up in the clinic with Dr. Mayo to discuss further management and treatment of malignancy. 2. Severe back pain secondary to known metastatic disease. Neurosurgery consulted during this hospital stay and dexamethasone has been started due to some mild edema of the spinal cord seen on CT scan. Strength is intact. Agree with dexamethasone, agree with neurosurgery consult. Recommend consultation of radiation oncology tomorrow. Continue current IV pain medication regimen. 3. Longstanding tobacco abuse, quit within the past six weeks. Will notify of inpatient hospitalization. Eirka Pride MD EREN/SANDRA /9:51 PM /10:14 PM [facility]RIC CENTERKeena
[2017-05-05] VITALS (9 sets, daily range): BP systolic 113–133; BP diastolic 62–74; PULSE 76–89; RESP 16–20; TEMP 97.3–98.7; O2SAT 91–97
[2017-05-05] MEDS: DEXAMETHASONE 4 MG TAB PO SCH ×5 (00:01→23:21)
[2017-05-05] MEDS: HEPARIN SODIUM - SQ 10,000 UNITS/ML VIAL SQ SCH ×2 (04:00→12:58)
[2017-05-05] MEDS: MORPHINE SULFATE 4 MG/ML INJ IV PUSH PRN (06:38)
[2017-05-05] MEDS: DOCUSATE SODIUM 50 MG/SENNA 8.6 MG TAB PO SCH ×2 (08:35→20:51)
[2017-05-05] MEDS: SODIUM CHLOR 0.45% 1000 ML INJ 1,000 ML IV SCH ×2 (08:35→21:40)
[2017-05-05] MEDS: SODIUM CHLORIDE 0.9% FLUSH 10 ML FLUSH IV FLUSH SCH ×2 (08:35→20:52)
[2017-05-05] MEDS ORDERED: DOCUSATE SODIUM 50 MG/SENNA 8.6 MG TAB PO SCH (09:15)
[2017-05-05] MEDS ORDERED: LIDOCAINE HCL 1% 20 ML VIAL ONE (10:52)
--- NOTE | 2017-05-05 15:14 | RADRPT ---
EXAM DATE/TIME: 05/05/2017 09:59 [facility] COMPARISON: No previous studies available for comparison. EXTERNAL COMPARISON: [facility], MRI RIGHT SHOULDER W/O CONTRAST, Apr 21 2017. INDICATIONS : Right deltoid mass. Vancomycin within 2 hrs of procedure, Ancef (or alternative) within 1 hr of procedure start. MEDICAL HISTORY : Hypercholesterolemia. Hypertension. Lung cancer. Thyroid cancer. SURGICAL HISTORY : Appendectomy. Cholecystectomy. Thyroidectomy. Cardiac catheterization. Cardiac stents. Orthopedic luis asuncion, right hand. ENCOUNTER: Initial ACUITY: 2 weeks PAIN SCORE: 10/10 LOCATION: Right shoulder. ORGAN: Right deltoid mass. SPECIMENS: Three core specimen(s) submitted for pathologic evaluation. DEVICE: 18 gauge Temno needle Post procedure scanning reveals no hematoma or other complication. The possibility does exist that the tissue obtained will be non-diagnostic. If the sample is non-yaquelin gnostic a repeat biopsy or surgical biopsy may need to be performed. TECHNIQUE: 1. Ultrasound guidance for needle biopsy. 2. Needle biopsy. The risks, benefits and alternatives to the procedure were explained and verbal and written consent w as obtained. The site was prepped in sterile fashion. Full sterile technique was used, including ca p, mask, sterile gloves and gown and a large sterile sheet. Hand hygiene and 2% chlorhexidine and/or betadine/alcohol prep was utilized per protocol for cutaneous antisepsis. The skin and subcutaneous tissues were infiltrated with local anesthetic solution. Sterile gel and sterile probe cover were u tilized for ultrasound guidance. With the patient on the ultrasound table, images were obtained. A needle was advanced into the identified target and the number of specimens as above obtained and martinez bmitted for pathologic evaluation. The patient tolerated the procedure well and left the ultrasound suite in stable condition. CONCLUSION: Uncomplicated ultrasound guided needle biopsy of the right deltoid mass. Miah Jiménez MD on May 05, 2017 at 15:12 Board Certified Radiologist. This report was verified electronically.
--- NOTE | 2017-05-05 16:11 | PD.ONC.PN ---
Subjective Subjective Remarks Pt seen and examined earlier today. Vital signs, imaging studies and medications were reviewed. His major complaint is lower back pain and hip pain on the R side. He also reports constipation. Objective Data Date Time Temp Pulse Resp B/P (MAP) Pulse Ox O2 Delivery O2 Flow Rate FiO2 05/05/17 12:00 97.3 87 20 124/62 (82) 94 05/05/17 11:08 98.0 84 16 126/74 (91) 95 05/05/17 10:50 98.0 85 18 116/66 (83) 91 05/05/17 10:29 98.7 89 18 113/66 (82) 97 05/05/17 08:00 97.6 85 20 122/65 (84) 95 05/05/17 04:00 97.6 76 17 133/69 (90) 94 05/05/17 00:00 98.1 81 17 122/62 (82) 91 05/04/17 20:00 98.6 86 17 119/68 (85) 96 05/04/17 18:30 96.9 85 16 139/76 (97) 95 05/04/17 18:02 86 16 142/74 (96) 95 05/04/17 16:33 98.2 80 18 107/59 (75) 95 Room Air 05/05/17 05/05/17 05/05/17 07:00 15:00 23:00 Output Total 300 ml Balance -300 ml Result Diagram: 05/04/17 1330 05/04/17 1330 Imaging Studies Last 24 hours Impressions Soft Tissue Biopsy 05/05/17 0000 Signed Impressions: Service Date/Time: April 09:59 - CONCLUSION: Uncomplicated ultrasound guided needle biopsy of the right deltoid mass. Miah Jiménez MD Administered Medications Medications (Trade) Dose Ordered Sig/Theron Route PRN Reason Start Time Stop Time Status Last Admin Dose Admin Sodium Chloride 1,000 ml @ 75 mls/hr [id number] IV 05/04/17 19:00 05/05/17 08:35 Sodium Chloride (NS Flush) 2 ml BID IV FLUSH 05/04/17 21:00 05/04/17 21:08 Heparin Sodium (Porcine) (Heparin Inj) 5,000 units Q8H SQ 05/04/17 20:00 05/04/17 21:07 Senna/Docusate Sodium (Hilaria-Colace) 1 tab BID PO 05/04/17 21:00 05/05/17 08:35 Lactulose (Lactulose Liq) 30 ml DAILY PRN PO SEVERE CONSITIPATION 05/04/17 18:30 05/05/17 12:58 Morphine Sulfate (Morphine Inj) 4 mg Q3H PRN IV PUSH PAIN SCALE 5 TO 10 05/04/17 18:30 05/05/17 06:38 Dexamethasone (Decadron) 4 mg Q6HR PO 05/05/17 00:00 05/05/17 12:56 Objective Remarks GENERAL: Middle aged male, sitting up in bed, appears comfortable. SKIN: Warm and dry. HEAD: Normocephalic. EYES: No scleral icterus. No injection or drainage. NECK: Supple, trachea midline. No JVD or lymphadenopathy. LYMPHATIC: No adenopathy. CARDIOVASCULAR: Regular rate and rhythm without murmurs. RESPIRATORY: Breath sounds equal bilaterally, prolonged expiratory phase. No accessory muscle use. GASTROINTESTINAL: Abdomen soft, non-tender, nondistended. EXTREMITIES: No cyanosis, or edema. MUSCULOSKELETAL: Adequate muscle mass and tone of the upper and lower extremities. NEUROLOGICAL: No obvious focal deficit. Awake, alert, and oriented x3. PSYCHIATRIC: Appropriate mood and affect; insight and judgment normal. Assessment/Plan Assessment 72 yr old male with metastatic adenocarcinoma of lung primary with metastatic disease to the spine and pelvis and possible metastatic disease to the R deltoid muscle. Presents to the hospital with severe lower back and hip pain. He denies motor or sensory deficits to the lower extremities and has none noted on clinical exam. MRI of the L and S spine does not indicate spinal cord compression. He does however have symptomatic pelvic metastatic deposits which are likely contributing to his pain symptoms. He is currently undergoing simulation for palliative RT to the lumbar spine as well as the symptomatic pelvic lesions. Plan 1. Back pain is related to the bony mets to his L and S spine and pelvis. Continue current pain medications and dexamethasone as this combination seems to be working well. There is no evidence of spinal cord compression. 2. Treat with bisphosphonate. 3. Await results of the PDL-1, EGFR, ALK and ROS-1 mutations which have been ordered. 4. RT simulation today. 5. US guided biopsy of the R deltoid muscle mass. 6. Lovenox for DVT prophylaxis. Oliver Mayo MD May 05, 2017 16:11
--- NOTE | 2017-05-05 16:57 | MB ---
cc: BEN ROSADO M.D.,BRANDI QUIROZ,JAYESH Guevara MD DATE OF CONSULTATION 05/05/17 is 1945 REASON FOR CONSULTATION A 72-year-old gentleman with newly diagnosed metastatic [id number] lung cancer, adenocarcinoma, with severe back pain. BRIEF HISTORY This is a 72-year-old gentleman who has noticed an enlarging swelling associated with some discomfort in his right deltoid region becoming slowly progressively worse over the past six months. Nevertheless, this was thought to be benign. He developed an acute onset of severe low back pain within the past two weeks. He was seen in the emergency room at the [facility] and diagnostic imaging including MRI studies suggested evidence of metastatic disease at L3 and S1. As well, he had evidence of an abnormality with a mild disk bulge at the L4-5 level and suspected cystic areas seen in the spinal canal at L5-S1 causing compression of the thecal sac and erosion of the S1 vertebral body which could be a prominent perineural cyst/Tarlov cyst. There was some evidence to suggest chronicity. It is also noted that when he underwent x-rays of his right arm because of the enlarging lesion, he was noted to have a right lung base lesion which on CT scan was 3.3 cm in size. This has been biopsied and found to be an adenocarcinoma, moderately differentiated with mucin production, consistent with an adenocarcinoma of the lung. This gentleman was due to be seen yesterday in our office in consultation for consideration of radiation treatment, but he was ultimately admitted to the hospital because of severe low back pain which he could no longer tolerate. While in the hospital, he has gone on to have further diagnostic imaging performed including an MR of the lumbar spine, sacrum and coccyx. This revealed evidence of metastatic lesions involving both ileum, the right acetabulum and the central aspect of the sacrum. There is no evidence of an insufficiency fracture, as well as the lesion that was previously noted on outpatient MRI at L3. The enhancement of L3 extends back to the pedicle and the articular facets on the right side. There is very subtle edema of the superior endplate of L3, probably related to metastatic disease. Currently, this gentleman is resting comfortably in bed. He has had a biopsy of his right deltoid mass performed today and we do not yet have those results. He is a lifetime smoker, but he denies any pulmonary symptoms. Denies shortness of breath, cough, sputum or hemoptysis. PAST MEDICAL AND SURGICAL HISTORY 1. Thyroid cancer in the 1980s treated with thyroidectomy 2. Newly diagnosed metastatic lung cancer as noted above 3. Peripheral artery disease with stenting to his lower limbs 4. Hyperlipidemia 5. Hypertension 6. 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 Left bundle branch block 8. Cholecystectomy 9. Appendectomy. MEDICATIONS Outpatient included 1. Dilaudid 2. Extended release morphine 3. Levothyroxine. 4. Atenolol. 5. Lisinopril. ALLERGIES PENICILLIN FAMILY HISTORY AND SOCIAL HISTORY This gentleman previously worked in [employer]. He has two children that live locally. His is alive and well. His father has a history of colon cancer. REVIEW OF SYSTEMS This gentleman has severe pain in the low back and right groin region. It is aggravated by almost any movement. He has no numbness. He has no loss of bowel or bladder function and he denies weakness. His system review is otherwise negative. He denies cardiovascular, respiratory, eye, ear, nose or throat, neurologic, GI, , other musculoskeletal, hematologic, endocrine or other complaints. PHYSICAL EXAMINATION GENERAL: On exam this gentleman looks well. He is resting comfortably in a semi-supine position and in no distress. HEENT: There was no jaundice. His conjunctivae and eyelids were normal. He had full EOMs. Inspection of his oral cavity and oropharynx was normal. NECK: There is no evidence of adenopathy in any region of the head and neck including supraclavicular regions. His trachea was midline. His thyroid was not enlarged. LUNGS: His lung bases were resonant with percussion clear on auscultation. There is no effusion or bronchial breathing. CARDIAC: He has a normal first and second heart sound without murmurs, rubs or bruits and his rate and rhythm was normal. There is no clubbing. There is no axillary adenopathy. ABDOMEN: There are no abdominal masses, tenderness or hepatosplenomegaly. EXTREMITIES: He was able to move his lower limbs, but there was some restriction of movement because of pain. Review of data today I have reviewed this gentleman's pathology report from his lung biopsy. I have reviewed his MRI of the soft tissue lesion in the region of the right deltoid. This also shows suspicion of disease involving the humeral head, although it is unclear if this is an edematous response as dictated on the MRI. He has disease at L3. He has disease in his sacrum and adjacent ileum and he has disease in the right acetabular area. The disease in the sacrum, ileum and acetabulum are consistent with this gentleman's severe pain. DISCUSSION I have reviewed all of this with this gentleman. I have told him I believe that we can help palliate his pain by radiation treatment to the sacral disease as well as the right acetabulum. I also believe he will require ongoing chemotherapy. He is having pain in the right deltoid area. We will have to see how much that this bothers him, because of course he will be going on to receive systemic therapy and this may be a good index lesion, although obviously the lesion in the lung will also be easy to follow. All of this was discussed with this gentleman. He is agreeable to proceeding with palliative treatment in this manner. I note that neurosurgery has been consulted. If they have any additional input, we would certainly value their advice. Thank you again. MD MIGUEL Chavira/ /2:51 PM /4:30 PM
--- NOTE | 2017-05-05 17:23 | HHI.PR ---
Subjective Remarks Patient states that his pain is almost similar to the one he had on admission, only when he moves. Denies any upper or lower extremity weakness Denies fevers or chills patient is sp biopsy of deltoid mass denies sob/chest pain Objective Vitals Vital Signs Date Time Temp Pulse Resp B/P (MAP) Pulse Ox O2 Delivery O2 Flow Rate FiO2 05/05/17 12:00 97.3 87 20 124/62 (82) 94 05/05/17 11:08 98.0 84 16 126/74 (91) 95 05/05/17 10:50 98.0 85 18 116/66 (83) 91 05/05/17 10:29 98.7 89 18 113/66 (82) 97 05/05/17 08:00 97.6 85 20 122/65 (84) 95 05/05/17 04:00 97.6 76 17 133/69 (90) 94 05/05/17 00:00 98.1 81 17 122/62 (82) 91 05/04/17 20:00 98.6 86 17 119/68 (85) 96 05/04/17 18:30 96.9 85 16 139/76 (97) 95 05/04/17 18:02 86 16 142/74 (96) 95 I/O 05/04/17 05/04/17 05/04/17 05/05/17 05/05/17 05/05/17 07:00 15:00 23:00 07:00 15:00 23:00 Output Total 300 ml 300 ml Balance -300 ml -300 ml Output Urine Total 300 ml 300 ml Result Diagram: 05/04/17 1330 05/04/17 1330 Imaging Last Impressions Soft Tissue Biopsy 05/05/17 0000 Signed Impressions: Service Date/Time: April 09:59 - CONCLUSION: Uncomplicated ultrasound guided needle biopsy of the right deltoid mass. Miah Jiménez MD Sacrum/Coccyx MRI 05/04/17 0000 Signed Impressions: Service Date/Time: Thursday, May 04, 2017 14:33 - CONCLUSION: 1. There are metastatic lesions are evident involving both ilium, the right acetabulum and the central aspect of the sacrum. No findings to indicate insufficiency fracture are identified. 2. Enlargement of the prostate. Gautam Mathias MD Lumbar Spine MRI 05/04/17 0000 Signed Impressions: Service Date/Time: Thursday, May 04, 2017 14:33 - CONCLUSION: 1. The post contrast imaging demonstrates abnormal enhancement involving the L3 and S1 vertebral bodies concerning for metastatic disease. Of note, the enhancement in L3 extends back to the pedicle and the articular facets on the right side. There is a very subtle edema in the superior endplate of L3 probably related to the metastatic disease. No significant loss of vertebral body height is identified. 2. Degenerated disc at L4-5. 3. 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 4. Overall appearance the exam is stable compared to the previous dated 04/15/17. 5. Stable compared to previous examination. Gautam Mathias MD Objective Remarks GENERAL: This is a well-nourished, well-developed patient, laying flat on his back , in no apparent distress. SKIN: No rashes, ecchymoses or lesions. Cool and dry. HEAD: Atraumatic. Normocephalic. No temporal or scalp tenderness. EYES: Pupils equal round and reactive. Extraocular motions intact. No scleral icterus. No injection or drainage. ENT: Nose without bleedingor purulent drainage. Airway patent. NECK: Trachea midline. No lymphadenopathy. Supple and nontender. CARDIOVASCULAR: Regular rate and rhythm without murmurs, gallops, or rubs. RESPIRATORY: Clear to auscultation. Breath sounds equal bilaterally. No wheezes , rales, or rhonchi. GASTROINTESTINAL: Abdomen soft, non-tender, nondistended. No hepato- splenomegaly or guarding. MUSCULOSKELETAL: Extremities without clubbing, cyanosis, or edema. No joint tenderness, effusion, or edema noted. NEUROLOGICAL: Awake and alert. Cranial nerves II through XII intact. Motor and sensory grossly within normal limits. Five out of 5 muscle strength in all muscle groups. Speech was clear and fluent. Medications and IVs Current Medications Medications (Trade) Dose Ordered Sig/Theron Route Start Time Stop Time Status Last Admin Sodium Chloride 1,000 ml @ 75 mls/hr [id number] IV 05/04/17 19:00 05/05/17 08:35 (NS Flush) 2 ml UNSCH PRN IV FLUSH 05/04/17 18:30 (NS Flush) 2 ml BID IV FLUSH 05/04/17 21:00 05/04/17 21:08 (Tylenol) 650 mg Q4H PRN PO 05/04/17 18:30 (Zofran Inj) 4 mg Q6H PRN IVP 05/04/17 18:30 (Narcan Inj) 0.4 mg UNSCH PRN IV PUSH 05/04/17 18:30 (Hilaria-Colace) 1 tab BID PO 05/04/17 21:00 05/05/17 08:35 (Milk Of Magnesia Liq) 30 ml Q12H PRN PO 05/04/17 18:30 (Senokot) 17.2 mg Q12H PRN PO 05/04/17 18:30 (Dulcolax Supp) 10 mg DAILY PRN RECTAL 05/04/17 18:30 (Lactulose Liq) 30 ml DAILY PRN PO 05/04/17 18:30 05/05/17 12:58 (Morphine Inj) 2 mg Q3H PRN IV PUSH 05/04/17 18:30 (Morphine Inj) 4 mg Q3H PRN IV PUSH 05/04/17 18:30 05/05/17 06:38 (Decadron) 4 mg Q6HR PO 05/05/17 00:00 05/05/17 12:56 (Lovenox Inj) 40 mg Q24H SQ 05/05/17 17:00 Pamidronate Disodium 90 mg/ Sodium Chloride 500 ml @ 125 mls/hr ONCE ONCE IV 05/05/17 18:00 05/05/17 21:59 A/P Assessment and Plan Mr. Abbott is 72 yo, with history of metastatic adenocarcinoma of the lung (diagnosed early April,), thyroid cancer, hypothyroidism, peripheral artery disease of the lower extremities, left bundle branch block. hyperlipidemia, and hypertension. Pt's oncologist is Dr. Mayo. 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 Holman ( approximately 8 days ago). Pain 1. Metastatic lung adenocarcinoma -Admit to inpatient service. -Morphine IV when necessary. -Dexamethasone 4mg by mouth q 6 hrs. -Consult Dr. Mayo, oncologist -Consult neurosurgery 05/05 Patient still c/o severe pain. Will add IV dilaudid for breakthrough pain. Appreciate oncology recommendations. Radiation oncology has been consulted. Constipation -Hilaria-colace 1 tablet by mouth twice daily. -Milk of Magnesia 30 ml by mouth q 12 hrs as needed (mild constipation). -Senokot 17.2 mg by mouth q 12 hrs as needed (moderate severe constipation) -Ducolax 10 mg per rectum daily as needed (severe constipation) -Lactulose 30 ml per mouth daily as needed (severe constipation). -Sodium chloride 1000 ml @ 75 ml/hr 05/05 Patient still constipated Discussed with RN, will give lactulose. Intractable severe back pain. -MRI of the lumbar spine above shows some abnormal enhancement involving the L3 and S1 vertebral bodies concerning for metastatic disease. Degenerative disc disease. -Neurosurgery consulted continue IV dexamethasone for now. Continue IV morphine, will Rx IV Dilaudid for breakthrough pain. Hypothyroidism -Continue levothyroxine. Hypertension -Patient blood pressure within normal range. I will hold lisinopril and atenolol since blood pressure has been stable. Continue to monitor vital signs. Leukocytosis -No current signs of infection. I will check a urinalysis and continue to monitor CBC. DVT prophylaxis: -SCD's -Heparin 500 units sq q 8 hrs Discharge Planning Continue to monitor in the oncology floor. Wilbert Resendiz MD May 05, 2017 17:23
[2017-05-05] MEDS: LIDOCAINE HCL 5% PATCH T-DERMAL SCH (17:30)
[2017-05-05] MEDS: ENOXAPARIN SODIUM 40 MG/0.4 ML SYRINGE SQ SCH (17:55)
[2017-05-05] MEDS ORDERED: PAMIDRONATE INJ 90 MG in SODIUM CHLORID 0.9% 500 ML INJ 500 ML IV ONE (18:00)
--- NOTE | 2017-05-05 20:30 | HHI.PR ---
Subjective Remarks DRAFT- pt not seen Objective Vitals Vital Signs Date Time Temp Pulse Resp B/P (MAP) Pulse Ox O2 Delivery O2 Flow Rate FiO2 05/05/17 16:00 98.1 81 20 116/65 (82) 97 05/05/17 12:00 97.3 87 20 124/62 (82) 94 05/05/17 11:08 98.0 84 16 126/74 (91) 95 05/05/17 10:50 98.0 85 18 116/66 (83) 91 05/05/17 10:29 98.7 89 18 113/66 (82) 97 05/05/17 08:00 97.6 85 20 122/65 (84) 95 05/05/17 04:00 97.6 76 17 133/69 (90) 94 05/05/17 00:00 98.1 81 17 122/62 (82) 91 I/O 05/04/17 05/04/17 05/04/17 05/05/17 05/05/17 05/05/17 07:00 15:00 23:00 07:00 15:00 23:00 Intake Total 420 ml Output Total 300 ml 300 ml 200 ml Balance -300 ml -300 ml 220 ml Intake Oral 420 ml Output Urine Total 300 ml 300 ml 200 ml # Voids 4 Result Diagram: 05/04/17 1330 05/04/17 1330 Procedures biopsy of left deltoid A/P Problem List: (1) Intractable pain ICD Code: R52 - Pain, unspecified Status: Acute (2) Metastatic adenocarcinoma to lung ICD Code: C78.00 - Secondary malignant neoplasm of unspecified lung Status: Acute Assessment and Plan Mr. Abbott is 72 yo, with history of metastatic adenocarcinoma of the lung (diagnosed early April,), thyroid cancer, hypothyroidism, peripheral artery disease of the lower extremities, left bundle branch block. hyperlipidemia, and hypertension. Pt's oncologist is Dr. Mayo. 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 Holman ( approximately 8 days ago). Intractable Pain Metastatic lung adenocarcinoma -Admit to inpatient service. -Morphine IV when necessary. -Dexamethasone 4mg by mouth q 6 hrs. -Consult Dr. Mayo, oncologist -Consult neurosurgery 05/05 Patient still c/o severe pain. Will add IV dilaudid for breakthrough pain. Appreciate oncology recommendations. Radiation oncology has been consulted for RT. Constipation -Hilaria-colace 1 tablet by mouth twice daily. -Milk of Magnesia 30 ml by mouth q 12 hrs as needed (mild constipation). -Senokot 17.2 mg by mouth q 12 hrs as needed (moderate severe constipation) -Ducolax 10 mg per rectum daily as needed (severe constipation) -Lactulose 30 ml per mouth daily as needed (severe constipation). -Sodium chloride 1000 ml @ 75 ml/hr 05/05 Patient still constipated Discussed with RN, will give lactulose. Intractable severe back pain. -MRI of the lumbar spine above shows some abnormal enhancement involving the L3 and S1 vertebral bodies concerning for metastatic disease. Degenerative disc disease. -Neurosurgery consulted continue IV dexamethasone for now. Continue IV morphine, will Rx IV Dilaudid for breakthrough pain. Hypothyroidism -Continue levothyroxine. Hypertension -Patient blood pressure within normal range. I will hold lisinopril and atenolol since blood pressure has been stable. Continue to monitor vital signs. Leukocytosis -No current signs of infection. I will check a urinalysis and continue to monitor CBC. DVT prophylaxis: -SCD's -Lovenox Problem Qualifiers (1) Metastatic adenocarcinoma to lung: Qualified Codes: C78.00 - Secondary malignant neoplasm of unspecified lung Marquise Boss MD May 05, 2017 20:30
[2017-05-05] MEDS: REMOVE OLD LIDOCAINE PATCH T-DERMAL SCH (21:00)
[2017-05-06 00:33] VITALS: BP 134/81; PULSE 89; RESP 18; TEMP 98.3; O2SAT 96
[2017-05-06 04:00] VITALS: BP 163/72; PULSE 86; RESP 18; TEMP 97.5; O2SAT 95
[2017-05-06 04:10] LABS: BACTERIA, URINE RARE /hpf; BLOOD, URINE NEG (NEG); COMMENT (UR) CULT NOT INDICATED; CULTURE IF INDICATED CULT NOT INDICATED; GLUCOSE,URINE 150 mg/dL (NEG); KETONE, URINE TRACE mg/dL (NEG); MUCUS URINE FEW /lpf (OCC); NITRITE,URINE NEG (NEG); URINE COLOR YELLOW (YELLW/STRAW)
[2017-05-06] MEDS: DEXAMETHASONE 4 MG TAB PO SCH ×3 (05:46→18:20)
[2017-05-06] MEDS: LEVOTHYROXINE SODIUM 125 MCG TAB PO SCH (05:46)
[2017-05-06 08:58] VITALS: BP 154/70; PULSE 94; RESP 20; TEMP 97.9; O2SAT 96
[2017-05-06] MEDS: LIDOCAINE HCL 5% PATCH T-DERMAL SCH (09:34)
[2017-05-06] MEDS: CHOLECALCIFEROL (VIT D3) 5000 UNIT CAP PO SCH (09:35)
[2017-05-06] MEDS: DOCUSATE SODIUM 50 MG/SENNA 8.6 MG TAB PO SCH ×2 (09:35→21:23)
[2017-05-06] MEDS: SODIUM CHLORIDE 0.9% FLUSH 10 ML FLUSH IV FLUSH SCH ×2 (09:35→21:25)
[2017-05-06] MEDS ORDERED: MORPHINE SULFATE 15 MG TAB PO PRN (09:45)
--- NOTE | 2017-05-06 10:20 | HHI.PR ---
Subjective Remarks Follow-up intractable pain and metastatic lung cancer. Complaining of bilateral arm pain worse on the left. No radiation or weakness. Also reports of constipation. Seen with . Discussed with oncology PA and RN Objective Vitals Vital Signs Date Time Temp Pulse Resp B/P (MAP) Pulse Ox O2 Delivery O2 Flow Rate FiO2 05/06/17 08:58 97.9 94 20 154/70 (98) 96 05/06/17 04:00 97.5 86 18 163/72 (102) 95 05/06/17 00:33 98.3 89 18 134/81 (98) 96 05/05/17 20:00 98.2 87 18 133/74 (93) 97 05/05/17 16:00 98.1 81 20 116/65 (82) 97 05/05/17 12:00 97.3 87 20 124/62 (82) 94 05/05/17 11:08 98.0 84 16 126/74 (91) 95 05/05/17 10:50 98.0 85 18 116/66 (83) 91 05/05/17 10:29 98.7 89 18 113/66 (82) 97 I/O 05/05/17 05/05/17 05/05/17 05/06/17 05/06/17 05/06/17 07:00 15:00 23:00 07:00 15:00 23:00 Intake Total 420 ml Output Total 300 ml 200 ml Balance -300 ml 220 ml Intake Oral 420 ml Output Urine Total 300 ml 200 ml # Voids 7 1 # Bowel Movements 1 Result Diagram: 05/04/17 1330 05/04/17 1330 Imaging Last Impressions Soft Tissue Biopsy 05/05/17 0000 Signed Impressions: Service Date/Time: April 09:59 - CONCLUSION: Uncomplicated ultrasound guided needle biopsy of the right deltoid mass. Miah Jiménez MD Sacrum/Coccyx MRI 05/04/17 0000 Signed Impressions: Service Date/Time: Thursday, May 04, 2017 14:33 - CONCLUSION: 1. There are metastatic lesions are evident involving both ilium, the right acetabulum and the central aspect of the sacrum. No findings to indicate insufficiency fracture are identified. 2. Enlargement of the prostate. Gautam Mathias MD Lumbar Spine MRI 05/04/17 0000 Signed Impressions: Service Date/Time: Thursday, May 04, 2017 14:33 - CONCLUSION: 1. The post contrast imaging demonstrates abnormal enhancement involving the L3 and S1 vertebral bodies concerning for metastatic disease. Of note, the enhancement in L3 extends back to the pedicle and the articular facets on the right side. There is a very subtle edema in the superior endplate of L3 probably related to the metastatic disease. No significant loss of vertebral body height is identified. 2. Degenerated disc at L4-5. 3. 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 4. Overall appearance the exam is stable compared to the previous dated 04/15/17. 5. Stable compared to previous examination. Gautam Mathias MD Objective Remarks Well-developed, well-nourished in no distress Skin is warm nor rash HEENT pupils equally reactive to light. Jose Cruz in the occiput in place Lungs are clear and equal in expansion Regular rate and rhythm Abdomen soft nontender Extremities no edema and cyanosis. No signs of cellulitis Alert and oriented 3 Procedures biopsy of right deltoid mass A/P Problem List: (1) Intractable pain ICD Code: R52 - Pain, unspecified Status: Acute (2) Metastatic adenocarcinoma to lung ICD Code: C78.00 - Secondary malignant neoplasm of unspecified lung Status: Acute Assessment and Plan Mr. Abbott is 72 yo, with history of metastatic adenocarcinoma of the lung (diagnosed early April,), thyroid cancer, hypothyroidism, peripheral artery disease of the lower extremities, left bundle branch block, hyperlipidemia, and hypertension. Pt's oncologist is Dr. Mayo. 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 Holman ( approximately 8 days ago). He presents to the emergency department because of intractable pain Intractable Pain Metastatic lung adenocarcinoma -Admit to inpatient service. -Discuss with oncology, restart home Oramorph and add as needed morphine sulfate image IR for rates her pain -Dexamethasone 4mg by mouth q 6 hrs. -Consult Dr. Mayo, oncologist. RT to start next week -Consult neurosurgery Constipation -Hilaria-colace 1 tablet by mouth twice daily. -Milk of Magnesia 30 ml by mouth q 12 hrs as needed (mild constipation). -Senokot 17.2 mg by mouth q 12 hrs as needed (moderate severe constipation) -Ducolax 10 mg per rectum daily as needed (severe constipation) -Start Lactulose 30 ml per mouth daily -Sodium chloride 1000 ml @ 75 ml/hr Intractable severe back pain. -MRI of the lumbar spine above shows some abnormal enhancement involving the L3 and S1 vertebral bodies concerning for metastatic disease. Degenerative disc disease. -Neurosurgery consulted continue dexamethasone for now. Hypothyroidism -Continue levothyroxine. Hypertension -Restart lisinopril and atenolol with hold parameters Leukocytosis -No current signs of infection. Urinalysis with no evidence of infection Hyperglycemia. Obtain A1c DVT prophylaxis: -SCD's -Lovenox Follow-up pending labs today Discharge Planning Discharge when pain managed with by mouth meds Problem Qualifiers (1) Metastatic adenocarcinoma to lung: Qualified Codes: C78.00 - Secondary malignant neoplasm of unspecified lung Marquise Boss MD May 06, 2017 10:20
[2017-05-06] MEDS: LISINOPRIL 10 MG TAB PO SCH (10:26)
[2017-05-06] MEDS: ATENOLOL 25 MG TAB PO SCH (10:26)
[2017-05-06] MEDS: PANTOPRAZOLE SOD 20 MG DELAYED RELEASE TAB PO SCH (10:26)
[2017-05-06] MEDS: MORPHINE SULFATE 30 MG CONTROLLED RELEASE TAB PO SCH ×2 (10:27→21:23)
[2017-05-06] MEDS: LACTULOSE SYRUP 20 GM/30 ML CUP PO SCH (10:29)
--- NOTE | 2017-05-06 10:58 | PD.ONC.PN ---
Subjective Subjective Remarks Afebrile overnight. Patient resting in room. Frustrated that his pain is not controlled and he still has constipation. He has pain in his back and hips present especially with movement. He does not feel he should have to wait to ask for pain medication. Yesterday he had a bowel movement but states he continues to have persistent problems with constipation despite taking Mag. Citrate, Senna tabs and an otc laxative at home. He and his are very frustrated as they do not feel these issues are being addressed. He is also very concerned about his blood pressure which was elevated this morning. he takes lisinopril and atenolol at home and has not been getting those medications here. Objective Data Date Time Temp Pulse Resp B/P (MAP) Pulse Ox O2 Delivery O2 Flow Rate FiO2 05/06/17 08:58 97.9 94 20 154/70 (98) 96 05/06/17 04:00 97.5 86 18 163/72 (102) 95 05/06/17 00:33 98.3 89 18 134/81 (98) 96 05/05/17 20:00 98.2 87 18 133/74 (93) 97 05/05/17 16:00 98.1 81 20 116/65 (82) 97 05/05/17 12:00 97.3 87 20 124/62 (82) 94 05/05/17 11:08 98.0 84 16 126/74 (91) 95 05/05/17 10:50 98.0 85 18 116/66 (83) 91 Result Diagram: 05/04/17 1330 05/04/17 1330 Laboratory Results Laboratory Tests Test 05/06/17 03:40 Urine Color YELLOW Urine Turbidity HAZY Urine pH 6.0 Urine Specific [place] 1.021 Urine Protein TRACE mg/dL Urine Glucose (UA) 150 mg/dL Urine Ketones TRACE mg/dL Urine Occult Blood NEG Urine Nitrite NEG Urine Bilirubin NEG Urine Urobilinogen LESS THAN 2.0 MG/DL Urine Leukocyte Esterase NEG Urine RBC LESS THAN 1 /hpf Urine WBC 1 /hpf Urine Amorphous Sediment RARE Urine Bacteria RARE /hpf Urine Mucus FEW /lpf Microscopic Urinalysis Comment CULT NOT INDICATED Administered Medications Medications (Trade) Dose Ordered Sig/Theron Route PRN Reason Start Time Stop Time Status Last Admin Dose Admin Sodium Chloride 1,000 ml @ 75 mls/hr [id number] IV 05/04/17 19:00 05/05/17 08:35 Sodium Chloride (NS Flush) 2 ml BID IV FLUSH 05/04/17 21:00 05/06/17 09:35 Senna/Docusate Sodium (Hilaria-Colace) 1 tab BID PO 05/04/17 21:00 05/06/17 09:35 Dexamethasone (Decadron) 4 mg Q6HR PO 05/05/17 00:00 05/06/17 05:46 Enoxaparin Sodium (Lovenox Inj) 40 mg Q24H SQ 05/05/17 17:00 05/05/17 17:55 Cholecalciferol (Vitamin D3) 5,000 units DAILY PO 05/06/17 09:00 05/06/17 09:35 Levothyroxine Sodium (Synthroid) 125 mcg DAILY@0600 PO 05/06/17 06:00 05/06/17 05:46 Lisinopril (Prinivil) 10 mg DAILY PO 05/06/17 09:30 05/06/17 10:26 Atenolol (Tenormin) 25 mg DAILY PO 05/06/17 09:30 05/06/17 10:26 Morphine Sulfate (Oramorph Sr) 30 mg Q12HR PO 05/06/17 09:45 05/06/17 10:27 Lactulose (Lactulose Liq) 30 ml DAILY PO 05/06/17 09:45 05/06/17 10:29 Pantoprazole Sodium (Protonix) 20 mg DAILY PO 05/06/17 09:45 05/06/17 10:26 Objective Remarks GENERAL: Elderly male sitting up in chair next to bed in [facility]. SKIN: Warm and dry. HEAD: Normocephalic. EYES: No injection or drainage. NECK: Supple, trachea midline. CARDIOVASCULAR: +S1/S2 RESPIRATORY: Breath sounds equal bilaterally. No accessory muscle use. GASTROINTESTINAL: Abdomen soft, non-tender, nondistended. EXTREMITIES: No cyanosis NEUROLOGICAL: awake and alert, normal speech. moving extremities. Assessment/Plan Problem List: (1) Metastatic adenocarcinoma to lung ICD Codes: C78.00 - Secondary malignant neoplasm of unspecified lung Status: Acute Plan: --Await results of the PDL-1, EGFR, ALK and ROS-1 mutations which have been ordered. --s/p US guided biopsy of the R deltoid muscle mass. (2) Intractable pain ICD Codes: R52 - Pain, unspecified Status: Acute Plan: --patient was taking at home Oramorph 15mg PO BID + Dilaudid 2mg PO q6 hours scheduled. this is equal to approximately 60mg oral morphine. therefore , we will start Oramorph 30mg PO BID + Morphine Sulfate IR 15mg PO q 3 hours PRN pain --also on Decadron --Back pain related to the bony mets to his L and S spine and pelvis. 05/05--> underwent simulation for palliative RT to the lumbar spine as well as the symptomatic pelvic lesions. --I discussed with Dr. Husain on 05/06 and the plan is to start the XRT on Tuesday or Tuesday of next week once the planning is complete. (3) Constipation ICD Codes: K59.00 - Constipation, unspecified Plan: --on hilaria-colace BID. Add daily Lactulose. --PRN MoM, Ducolax, Senokot Assessment 72 yr old male with metastatic adenocarcinoma of lung primary with metastatic disease to the spine and pelvis and possible metastatic disease to the R deltoid muscle. Presents to the hospital with severe lower back and hip pain. He denies motor or sensory deficits to the lower extremities and has none noted on clinical exam. MRI of the L and S spine does not indicate spinal cord compression. He does however have symptomatic pelvic metastatic deposits which are likely contributing to his pain symptoms. Plan 1. start Oramorph 30mg PO BID with MSIR 15mg PO q 3 hours for breakthrough pain. Will titrate up as needed. 2. add Lactulose to bowel regimen. Continue hilaria-colace. 3. resume home Lisinopril and Atenolol 4. plan to start radiation next Tuesday or Tuesday 5. continue Decadron. Add Protonix for GI prophylaxis. 6. continue Lovenox for DVT prophylaxis. Discharge Disposition: Patient could be discharged home once pain is adequately controlled on oral regimen. Attending Statement The exam, history, and the medical decision-making described in the above note were completed with the assistance of the mid-level provider. I reviewed and agree with the findings presented. I attest that I had a [id number] encounter with the patient on the same day, and personally performed and documented my assessment and findings in the medical record. Pt seen and examined. He reports back pain is much improved with pain meds adjustment. He has continuous hiccoughs. Starting Compazine for this. S/p RT simulation; will likely start treatment on Tuesday or Tuesday. S/p Pamidronate infusion on 05/05. Clear for d/c from oncology standpoint if pain is controlled. Out pt f/u is already scheduled. Problem Qualifiers (1) Metastatic adenocarcinoma to lung: Qualified Codes: C78.00 - Secondary malignant neoplasm of unspecified lung (2) Constipation: Qualified Codes: K59.00 - Constipation, unspecified Maeve Grimaldo May 06, 2017 10:58 Oliver Mayo MD May 06, 2017 19:51
[2017-05-06] MEDS: SODIUM CHLOR 0.45% 1000 ML INJ 1,000 ML IV SCH (11:00)
--- NOTE | 2017-05-06 11:17 | MB ---
cc: BRANDI MORALES MD,OSMAN QUIROZ,JAYESH Guevara M.D. DATE OF CONSULTATION 05/06/2017 REASON FOR CONSULTATION Lumbosacral spine metastases. HISTORY OF PRESENT ILLNESS This is a 72-year-old gentleman who presents with complaints for the last three weeks of low back pain and also radiation to the right anterolateral thigh and elizondo. Denies any numbness or paresthesias. Also relates the pain in his right shoulder and biceps and deltoid area. No numbness in the upper extremities either. He has a history of lung adenocarcinoma and was also found to have a right humerus and deltoid soft tissue mass which was biopsied yesterday and the results are pending. Workup also included an MRI scan of the lumbar spine which reveals an L3 superior vertebral body enhancing mass with some edema, as well as, sacral enhancing mass. He also has a Tarlov cyst at L5-S1 level which is chronic. On the sacral coccyx MRI scan, he also has a metastatic lesion involving both ileum and right acetabulum. He has been seen by radiation oncology and they are planning on irradiating for this metastatic disease in the spine. Currently, he sitting up in a chair eating breakfast and is at the bedside. PAST MEDICAL HISTORY 1. Adenocarcinoma of the lung 2. Thyroid cancer status post thyroidectomy 3. Hypertension 4. Squamous cell carcinoma of the scalp 5. Left bundle branch block 6. Peripheral vascular occlusive disease status post stenting 7. Hyperlipidemia MEDICATIONS 1. Oramorph 30 mg q.12 h 2. Morphine instant release 50 mg q.3 h p.r.n. 3. Lactulose 4. Protonix 5. Lisinopril 6. Atenolol 7. Synthroid 8. Lovenox 9. Decadron 4 mg q.6 h. 10. Per-Colace ALLERGIES AMPICILLIN SOCIAL HISTORY He is and his is here with him. He has a chronic smoking history, although he quit three weeks ago. Occasionally drinks alcohol. LABORATORY FINDINGS White blood cell count 14.1, hemoglobin 14.2, platelet count of 255, PT 10.7, INR 1.0, PTT 24.8. Sodium 140, potassium 4.3, BUN 21, creatinine 0.97, glucose 113. PHYSICAL EXAMINATION VITALS: Temperature 97.9, pulse 94, respiratory rate 20, blood pressure 154/70, oxygen saturation 96% on room air. HEAD: Normocephalic, atraumatic. NECK: Supple. No neck pain. CHEST: Clear to auscultation bilaterally. HEART: Regular rate and rhythm, normal S1 and S2. ABDOMEN: Soft and nontender. EXTREMITIES: He has some tenderness in the right deltoid and proximal shoulder area. Also complains of some tenderness and pain in the lumbosacral aspect in the low portion. No obvious deformity. NEUROLOGIC: He is awake and alert. Cranial nerves are grossly. Motor strength, some giveaway weakness in the proximal shoulder deltoids, but otherwise good strength in the upper and lower extremities. Negative Babinski. Appreciates light touch sensation bilaterally. Speech is fluent. IMPRESSION L3 and sacral metastatic lesions without any significant stenosis. He has a chronic L5-S1 Tarlov cyst. He also has metastasis to the right humerus and soft tissue as well as the right acetabulum and the pelvis. His pain appears to be controlled at this point. PLAN I agree with the radiation therapy to the L3 and sacral metastatic lesions. Should his symptoms not improve with radiation therapy, then we could entertain possible other intervention measures, if needed. This was discussed at length with the patient and his who understand and are in agreement. MD MIGUEL Ramirez/ENRIKE /10:54 AM /11:03 AM
[2017-05-06 12:18] VITALS: BP 142/63; PULSE 83; RESP 20; TEMP 96.1; O2SAT 98
[2017-05-06 13:17] LABS: ALKALINE PHOSPHATASE 108 U/L (45-117); ALT (GPT) 55 U/L (12-78); ANION GAP 11 MEQ/L (5-15); AST (GOT) 38 U/L (15-37); BICARBONATE 19.7 MEQ/L (21.0-32.0); CHLORIDE 106 MEQ/L (98-107); GLOMERULAR FILTRATION RATE 86 ML/MIN (>89); MAGNESIUM 2.2 MG/DL (1.5-2.5); POTASSIUM 5.2 MEQ/L (3.5-5.1); SODIUM (NA) 137 MEQ/L (136-145); TOTAL BILIRUBIN ADULT 0.6 MG/DL (0.2-1.0)
[2017-05-06 13:19] LABS: BLOOD UREA NITROGEN 19 MG/DL (7-18)
[2017-05-06 16:25] VITALS: BP 126/69; PULSE 85; RESP 20; TEMP 96.3; O2SAT 97
[2017-05-06] MEDS: ENOXAPARIN SODIUM 40 MG/0.4 ML SYRINGE SQ SCH (18:20)
[2017-05-06 20:00] VITALS: BP 120/59; PULSE 89; RESP 18; TEMP 97.3; O2SAT 98
[2017-05-06] MEDS ORDERED: PROCHLORPERAZINE MALEATE 10 MG TAB PO PRN (20:00)
[2017-05-06] MEDS ORDERED: chlorproMAZINE HCL 25 MG TAB PO ONE (20:15)
[2017-05-06] MEDS: REMOVE OLD LIDOCAINE PATCH T-DERMAL SCH (21:00)
[2017-05-07] VITALS (8 sets, daily range): BP systolic 105–136; BP diastolic 58–78; PULSE 75–87; RESP 16–18; TEMP 95.4–97.7; O2SAT 96–98
[2017-05-07] MEDS: SODIUM CHLOR 0.45% 1000 ML INJ 1,000 ML IV SCH (00:20)
[2017-05-07] MEDS ORDERED: chlorproMAZINE HCL 25 MG TAB PO ONE (01:00)
[2017-05-07] MEDS: LEVOTHYROXINE SODIUM 125 MCG TAB PO SCH (05:55)
[2017-05-07] MEDS: DEXAMETHASONE 4 MG TAB PO SCH ×4 (05:55→18:13)
[2017-05-07] MEDS: CHOLECALCIFEROL (VIT D3) 5000 UNIT CAP PO SCH (08:45)
[2017-05-07] MEDS: LACTULOSE SYRUP 20 GM/30 ML CUP PO SCH ×3 (08:45→18:14)
[2017-05-07] MEDS: ATENOLOL 25 MG TAB PO SCH (08:45)
[2017-05-07] MEDS: DOCUSATE SODIUM 50 MG/SENNA 8.6 MG TAB PO SCH ×2 (08:45→21:00)
[2017-05-07] MEDS: PANTOPRAZOLE SOD 20 MG DELAYED RELEASE TAB PO SCH (08:45)
[2017-05-07] MEDS: MORPHINE SULFATE 30 MG CONTROLLED RELEASE TAB PO SCH ×2 (08:47→21:46)
[2017-05-07] MEDS: SODIUM CHLORIDE 0.9% FLUSH 10 ML FLUSH IV FLUSH SCH ×2 (08:47→21:47)
--- NOTE | 2017-05-07 08:56 | PD.ONC.PN ---
Subjective Subjective Remarks Afebrile Patient reports his pain is much better controlled with long-acting morphine He has not yet had a bowel movement that he is passing gas Objective Data Date Time Temp Pulse Resp B/P (MAP) Pulse Ox O2 Delivery O2 Flow Rate FiO2 05/07/17 08:00 96.6 80 18 105/60 (75) 97 05/07/17 04:00 96.2 81 17 116/58 (77) 97 05/07/17 00:00 96.6 86 17 134/61 (85) 97 05/06/17 23:14 16 05/06/17 20:00 97.3 89 18 120/59 (79) 98 05/06/17 16:25 96.3 85 20 126/69 (88) 97 05/06/17 12:18 96.1 83 20 142/63 (89) 98 05/06/17 08:58 97.9 94 20 154/70 (98) 96 05/07/17 05/07/17 05/07/17 07:00 15:00 23:00 Intake Total 240 ml Balance 240 ml Result Diagram: 05/04/17 1330 05/06/17 1225 Laboratory Results Laboratory Tests Test 05/06/17 12:25 Blood Urea Nitrogen 19 MG/DL Creatinine 0.87 MG/DL Random Glucose 159 MG/DL Total Protein 6.8 GM/DL Albumin 3.4 GM/DL Calcium Level 9.3 MG/DL Phosphorus Level 2.2 MG/DL Magnesium Level 2.2 MG/DL Alkaline Phosphatase 108 U/L Aspartate Amino Transf (AST/SGOT) 38 U/L Alanine Aminotransferase (ALT/SGPT) 55 U/L Total Bilirubin 0.6 MG/DL Sodium Level 137 MEQ/L Potassium Level 5.2 MEQ/L Chloride Level 106 MEQ/L Carbon Dioxide Level 19.7 MEQ/L Anion Gap 11 MEQ/L Estimat Glomerular Filtration Rate 86 ML/MIN Administered Medications Medications (Trade) Dose Ordered Sig/Theron Route PRN Reason Start Time Stop Time Status Last Admin Dose Admin Sodium Chloride 1,000 ml @ 75 mls/hr [id number] IV 05/04/17 19:00 05/05/17 08:35 Sodium Chloride (NS Flush) 2 ml BID IV FLUSH 05/04/17 21:00 05/06/17 21:25 Senna/Docusate Sodium (Hilaria-Colace) 1 tab BID PO 05/04/17 21:00 05/06/17 21:23 Dexamethasone (Decadron) 4 mg Q6HR PO 05/05/17 00:00 05/07/17 05:55 Enoxaparin Sodium (Lovenox Inj) 40 mg Q24H SQ 05/05/17 17:00 05/06/17 18:20 Cholecalciferol (Vitamin D3) 5,000 units DAILY PO 05/06/17 09:00 05/06/17 09:35 Levothyroxine Sodium (Synthroid) 125 mcg DAILY@0600 PO 05/06/17 06:00 05/07/17 05:55 Lisinopril (Prinivil) 10 mg DAILY PO 05/06/17 09:30 05/06/17 10:26 Atenolol (Tenormin) 25 mg DAILY PO 05/06/17 09:30 05/06/17 10:26 Morphine Sulfate (Oramorph Sr) 30 mg Q12HR PO 05/06/17 09:45 05/06/17 21:23 Lactulose (Lactulose Liq) 30 ml DAILY PO 05/06/17 09:45 05/06/17 10:29 Pantoprazole Sodium (Protonix) 20 mg DAILY PO 05/06/17 09:45 05/06/17 10:26 Objective Remarks GENERAL: Elderly male sitting up in chair next to bed in no acute distress SKIN: Warm and dry. HEAD: Normocephalic. EYES: No injection or drainage. NECK: Supple, trachea midline. CARDIOVASCULAR: +S1/S2 RESPIRATORY: Breath sounds equal bilaterally. No accessory muscle use. GASTROINTESTINAL: Abdomen soft, non-tender, nondistended. EXTREMITIES: No cyanosis. No edema NEUROLOGICAL: Normal speech. Moving all extremities. No obvious focal deficit. Assessment/Plan Problem List: (1) Metastatic adenocarcinoma to lung ICD Codes: C78.00 - Secondary malignant neoplasm of unspecified lung Status: Acute Plan: --Await results of the PDL-1, EGFR, ALK and ROS-1 mutations which have been ordered. --s/p US guided biopsy of the R deltoid muscle mass. (2) Intractable pain ICD Codes: R52 - Pain, unspecified Status: Acute Plan: --patient was taking at home Oramorph 15mg PO BID + Dilaudid 2mg PO q6 hours scheduled. this is equal to approximately 60mg oral morphine. therefore , we will start Oramorph 30mg PO BID + Morphine Sulfate IR 15mg PO q 3 hours PRN pain --also on Decadron --Back pain related to the bony mets to his L and S spine and pelvis. 05/05--> underwent simulation for palliative RT to the lumbar spine as well as the symptomatic pelvic lesions. --I discussed with Dr. Husain on 05/06 and the plan is to start the XRT on Tuesday or Tuesday of next week once the planning is complete. (3) Constipation ICD Codes: K59.00 - Constipation, unspecified Plan: --on hilaria-colace BID. Add daily Lactulose. --PRN Justin Ferrera Senokot Assessment 72 yr old male with metastatic adenocarcinoma of lung primary with metastatic disease to the spine and pelvis and possible metastatic disease to the R deltoid muscle. Presents to the hospital with severe lower back and hip pain. He denies motor or sensory deficits to the lower extremities and has none noted on clinical exam. MRI of the L and S spine does not indicate spinal cord compression. He does however have symptomatic pelvic metastatic deposits which are likely contributing to his pain symptoms. Plan 1. Continue Oramorph 30 mg by mouth twice daily. 2. The patient has not yet had to use short-acting morphine. 3. He will likely be discharged tomorrow if pain remains under control 4. He is starting radiation early next week to spine lesions Attending Statement The exam, history, and the medical decision-making described in the above note were completed with the assistance of the mid-level provider. I reviewed and agree with the findings presented. I attest that I had a [id number] encounter with the patient on the same day, and personally performed and documented my assessment and findings in the medical record. Seen and examined. at bedside. c/o constipation, trying to walk around OOB. Pain better controlled. Anticipate DC tomorrow. Agree to trial lactulose and suppository. Problem Qualifiers (1) Metastatic adenocarcinoma to lung: Qualified Codes: C78.00 - Secondary malignant neoplasm of unspecified lung (2) Constipation: Qualified Codes: K59.00 - Constipation, unspecified Yael Felipe [facility] May 07, 2017 08:56 Sveta Alegre MD May 07, 2017 12:25
[2017-05-07] MEDS: LISINOPRIL 10 MG TAB PO SCH (09:04)
[2017-05-07] MEDS ORDERED: MORP1TAB25 PO (10:21)
[2017-05-07] MEDS ORDERED: LACT10SO PO (10:22)
[2017-05-07] MEDS ORDERED: PANT20 PO (10:22)
[2017-05-07] MEDS ORDERED: SENN1TAB PO (10:22)
[2017-05-07] MEDS ORDERED: DEXA4TAB PO (10:22)
--- NOTE | 2017-05-07 10:26 | HHI.DCPOC ---
Discharge Care Plan Diagnosis: (1) Intractable pain (2) Metastatic adenocarcinoma to lung Your Health Problems Are: Difficulty with ADL Exercise Tolerance Goals to Promote Your Health * To prevent worsening of your condition and complications * To maintain your health at the optimal level Directions to Meet Your Goals Take your medications as prescribed Follow your dietary instruction Follow activity as directed Keep your appointments as scheduled Take your immunizations and boosters as scheduled If your symptoms worsen call your PCP, if no PCP go to Urgent Care Center or Emergency Room Smoking is Dangerous to Your Health. Avoid second hand smoke Call the 24-hour hour crisis hotline for domestic abuse at Marquise Boss MD May 07, 2017 10:26
--- NOTE | 2017-05-07 10:26 | HHI.PR ---
Subjective Remarks Follow-up intractable Pain. Improved pain control slept well last night. Did not require when necessary morphine IR. Passing gas but no bowel movement. Developed hiccups improved with Thorazine. Discussed with RN Objective Vitals Vital Signs Date Time Temp Pulse Resp B/P (MAP) Pulse Ox O2 Delivery O2 Flow Rate FiO2 05/07/17 09:00 116/65 (82) 05/07/17 08:55 116/65 (82) 05/07/17 08:00 96.6 80 18 105/60 (75) 97 05/07/17 04:00 96.2 81 17 116/58 (77) 97 05/07/17 00:00 96.6 86 17 134/61 (85) 97 05/06/17 23:14 16 05/06/17 20:00 97.3 89 18 120/59 (79) 98 05/06/17 16:25 96.3 85 20 126/69 (88) 97 05/06/17 12:18 96.1 83 20 142/63 (89) 98 I/O 05/06/17 05/06/17 05/06/17 05/07/17 05/07/17 05/07/17 07:00 15:00 23:00 07:00 15:00 23:00 Intake Total 1440 ml 240 ml Output Total 400 ml Balance 1040 ml 240 ml Intake Oral 1440 ml 240 ml Output Urine Total 400 ml # Voids 1 3 1 Result Diagram: 05/04/17 1330 05/06/17 1225 Objective Remarks Well-developed, well-nourished in no distress Skin is warm nor rash HEENT pupils equally reactive to light. Jose Cruz in the occiput in place Lungs are clear and equal in expansion Regular rate and rhythm Abdomen soft nontender Extremities no edema and cyanosis. No signs of cellulitis Alert and oriented 3 No significant change in PE from previous Procedures biopsy of right deltoid mass A/P Problem List: (1) Intractable pain ICD Code: R52 - Pain, unspecified Status: Acute (2) Metastatic adenocarcinoma to lung ICD Code: C78.00 - Secondary malignant neoplasm of unspecified lung Status: Acute Assessment and Plan Mr. Abbott is 72 yo, with history of metastatic adenocarcinoma of the lung (diagnosed early April,), thyroid cancer, hypothyroidism, peripheral artery disease of the lower extremities, left bundle branch block, hyperlipidemia, and hypertension. Pt's oncologist is Dr. Mayo. 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 Holman ( approximately 8 days ago). He presents to the emergency department because of intractable pain Intractable Pain Metastatic lung adenocarcinoma -Admit to inpatient service. -Improving pain control continue Oramorph and add as needed morphine sulfate image IR for breakthrough pain -Dexamethasone 4mg by mouth q 6 hrs. -Consult Dr. Mayo, oncologist. RT to start next week -Consulted neurosurgery recommended nonsurgical management at this time. Follow up pathology Constipation -Hilaria-colace 1 tablet by mouth twice daily. -Milk of Magnesia 30 ml by mouth q 12 hrs as needed (mild constipation). -Senokot 17.2 mg by mouth q 12 hrs as needed (moderate severe constipation) -Ducolax 10 mg per rectum daily as needed (severe constipation) -Continue Lactulose 30 ml per mouth daily -Discontinue Sodium chloride 1000 ml @ 75 ml/hr Intractable severe back pain. -MRI of the lumbar spine above shows some abnormal enhancement involving the L3 and S1 vertebral bodies concerning for metastatic disease. Degenerative disc disease. -Neurosurgery consulted continue dexamethasone for now. Hypothyroidism -Continue levothyroxine. Hypertension -Restart lisinopril and atenolol with hold parameters Leukocytosis -No current signs of infection. Urinalysis with no evidence of infection Hyperglycemia. Obtain A1c Hiccups. Improved s/p thorazine DVT prophylaxis: -SCD's -Lovenox Discharge Planning Possible discharge in the morning Problem Qualifiers (1) Metastatic adenocarcinoma to lung: Qualified Codes: C78.00 - Secondary malignant neoplasm of unspecified lung Marquise Boss MD May 07, 2017 10:26
[2017-05-07] MEDS ORDERED: GLYCERIN ADULT 2 GM SUPP RECTAL ONE (12:00)
[2017-05-07] MEDS: ENOXAPARIN SODIUM 40 MG/0.4 ML SYRINGE SQ SCH (18:14)
[2017-05-07] MEDS: REMOVE OLD LIDOCAINE PATCH T-DERMAL SCH (21:00)
[2017-05-08] VITALS: BP 135/60; PULSE 90; RESP 17; TEMP 97; O2SAT 96
[2017-05-08] MEDS: DEXAMETHASONE 4 MG TAB PO SCH ×2 (01:12→05:46)
[2017-05-08 04:00] VITALS: RESP 18
[2017-05-08] MEDS: LEVOTHYROXINE SODIUM 125 MCG TAB PO SCH (05:46)
[2017-05-08] MEDS: ATENOLOL 25 MG TAB PO SCH (08:56)
[2017-05-08] MEDS: CHOLECALCIFEROL (VIT D3) 5000 UNIT CAP PO SCH (08:56)
[2017-05-08] MEDS: PANTOPRAZOLE SOD 20 MG DELAYED RELEASE TAB PO SCH (08:56)
[2017-05-08] MEDS: MORPHINE SULFATE 30 MG CONTROLLED RELEASE TAB PO SCH (08:58)
[2017-05-08] MEDS: DOCUSATE SODIUM 50 MG/SENNA 8.6 MG TAB PO SCH (08:58)
[2017-05-08] MEDS: LISINOPRIL 10 MG TAB PO SCH (08:59)
[2017-05-08] MEDS: SODIUM CHLORIDE 0.9% FLUSH 10 ML FLUSH IV FLUSH SCH (08:59)
[2017-05-08] MEDS: LACTULOSE SYRUP 20 GM/30 ML CUP PO SCH (08:59)
[2017-05-08 09:00] LABS: AUTOMATED NEUTROPHIL # 12.3 TH/MM3 (1.8-7.7); BASOPHIL % 0.1 % (0.0-2.0); HEMATOCRIT 37.9 % (39.0-51.0); HEMO FLAGS DIFF FINAL; LYMPH % 6.4 % (9.0-44.0); LYMPHOCYTE # 0.9 TH/MM3 (1.0-4.8); MEAN CELL VOLUME 79.9 FL (80.0-100.0); MEAN CORPUSCULAR HEMOGLOBIN 25.8 PG (27.0-34.0); MEAN CORPUSCULAR HGB CONC 32.4 % (32.0-36.0); MONO % 7.6 % (0.0-8.0); NEUT % 85.9 % (16.0-70.0); PLATELET COUNT 200 TH/MM3 (150-450); RED BLOOD COUNT 4.75 MIL/MM3 (4.50-5.90); RED CELL DISTRIBUTION WIDTH 16.4 % (11.6-17.2); WHITE BLOOD COUNT 14.3 TH/MM3 (4.0-11.0)
[2017-05-08 09:04] VITALS: BP 97/61; PULSE 81; RESP 16; TEMP 97.2; O2SAT 95
--- NOTE | 2017-05-08 09:42 | PD.ONC.PN ---
Subjective Subjective Remarks Afebrile Pt reports his pain is much better controlled Feels comfortable with being discharged today Objective Data Date Time Temp Pulse Resp B/P (MAP) Pulse Ox O2 Delivery O2 Flow Rate FiO2 05/08/17 09:04 97.2 81 16 97/61 (73) 95 05/08/17 04:00 18 05/08/17 00:00 97.0 90 17 135/60 (85) 96 05/07/17 23:42 16 05/07/17 20:00 97.7 87 18 136/65 (88) 97 05/07/17 16:00 95.4 77 18 132/78 (96) 96 05/07/17 12:00 97.3 75 16 107/59 (75) 98 05/08/17 05/08/17 05/08/17 07:00 15:00 23:00 Intake Total 240 ml Balance 240 ml Result Diagram: 05/08/17 0812 05/06/17 1225 Laboratory Results Laboratory Tests Test 05/08/17 08:12 White Blood Count 14.3 TH/MM3 Red Blood Count 4.75 MIL/MM3 Hemoglobin 12.3 GM/DL Hematocrit 37.9 % Mean Corpuscular Volume 79.9 FL Mean Corpuscular Hemoglobin 25.8 PG Mean Corpuscular Hemoglobin Concent 32.4 % Red Cell Distribution Width 16.4 % Platelet Count 200 TH/MM3 Mean Platelet Volume 8.4 FL Neutrophils (%) (Auto) 85.9 % Lymphocytes (%) (Auto) 6.4 % Monocytes (%) (Auto) 7.6 % Eosinophils (%) (Auto) 0.0 % Basophils (%) (Auto) 0.1 % Neutrophils # (Auto) 12.3 TH/MM3 Lymphocytes # (Auto) 0.9 TH/MM3 Monocytes # (Auto) 1.1 TH/MM3 Eosinophils # (Auto) 0.0 TH/MM3 Basophils # (Auto) 0.0 TH/MM3 CBC Comment DIFF FINAL Differential Comment Administered Medications Medications (Trade) Dose Ordered Sig/Theron Route PRN Reason Start Time Stop Time Status Last Admin Dose Admin Sodium Chloride (NS Flush) 2 ml BID IV FLUSH 05/04/17 21:00 05/08/17 08:59 Senna/Docusate Sodium (Hilaria-Colace) 1 tab BID PO 05/04/17 21:00 05/08/17 08:58 Dexamethasone (Decadron) 4 mg Q6HR PO 05/05/17 00:00 05/08/17 05:46 Enoxaparin Sodium (Lovenox Inj) 40 mg Q24H SQ 05/05/17 17:00 05/07/17 18:14 Cholecalciferol (Vitamin D3) 5,000 units DAILY PO 05/06/17 09:00 05/08/17 08:56 Levothyroxine Sodium (Synthroid) 125 mcg DAILY@0600 PO 05/06/17 06:00 05/08/17 05:46 Lisinopril (Prinivil) 10 mg DAILY PO 05/06/17 09:30 05/08/17 08:59 Atenolol (Tenormin) 25 mg DAILY PO 05/06/17 09:30 05/07/17 08:45 Morphine Sulfate (Oramorph Sr) 30 mg Q12HR PO 05/06/17 09:45 05/08/17 08:58 Lactulose (Lactulose Liq) 30 ml DAILY PO 05/06/17 09:45 05/07/17 08:45 Pantoprazole Sodium (Protonix) 20 mg DAILY PO 05/06/17 09:45 05/08/17 08:56 Objective Remarks GENERAL: Elderly male sitting up in chair next to bed in no acute distress SKIN: Warm and dry. HEAD: Normocephalic. EYES: No injection or drainage. NECK: Supple, trachea midline. CARDIOVASCULAR: +S1/S2 RESPIRATORY: Breath sounds equal bilaterally. No accessory muscle use. GASTROINTESTINAL: Abdomen soft, non-tender, nondistended. EXTREMITIES: No cyanosis. No edema NEUROLOGICAL: Normal speech. Moving all extremities. No obvious focal deficit. Assessment/Plan Problem List: (1) Metastatic adenocarcinoma to lung ICD Codes: C78.00 - Secondary malignant neoplasm of unspecified lung Status: Acute Plan: --Await results of the PDL-1, EGFR, ALK and ROS-1 mutations which have been ordered. --s/p US guided biopsy of the R deltoid muscle mass. (2) Intractable pain ICD Codes: R52 - Pain, unspecified Status: Acute Plan: --patient was taking at home Oramorph 15mg PO BID + Dilaudid 2mg PO q6 hours scheduled. this is equal to approximately 60mg oral morphine. therefore , we will start Oramorph 30mg PO BID + Morphine Sulfate IR 15mg PO q 3 hours PRN pain --also on Decadron --Back pain related to the bony mets to his L and S spine and pelvis. 05/05--> underwent simulation for palliative RT to the lumbar spine as well as the symptomatic pelvic lesions. --I discussed with Dr. Husain on 05/06 and the plan is to start the XRT on Tuesday or Tuesday of next week once the planning is complete. (3) Constipation ICD Codes: K59.00 - Constipation, unspecified Plan: --on hilaria-colace BID. Add daily Lactulose. --PRN MoM, Morgan Anderson Assessment 72 yr old male with metastatic adenocarcinoma of lung primary with metastatic disease to the spine and pelvis and possible metastatic disease to the R deltoid muscle. Presents to the hospital with severe lower back and hip pain. He denies motor or sensory deficits to the lower extremities and has none noted on clinical exam. MRI of the L and S spine does not indicate spinal cord compression. He does however have symptomatic pelvic metastatic deposits which are likely contributing to his pain symptoms. Plan 1. Continue Oramorph 30 mg by mouth twice daily; he has still not had to use the short acting morphine. 2. OK for discharge from oncology standpoint. 3. The pt has a f/u appt with Dr Mayo in am; he is also following up with Dr Husain for palliative XRT early next week. 4. I discussed with the pt and his that he should take the stool softener daily but use lactulose only when he has constipation along with the narcotics. Attending Statement Discussed w/ R. ESEQUIEL Felipe. Pain controlled. s/p BM. Plans to fu as out pt. Pt DC before could be seen. Problem Qualifiers (1) Metastatic adenocarcinoma to lung: Qualified Codes: C78.00 - Secondary malignant neoplasm of unspecified lung (2) Constipation: Qualified Codes: K59.00 - Constipation, unspecified Yael Felipe May 08, 2017 09:42 Sveta Alegre MD May 08, 2017 14:53
[2017-05-08 09:45] LABS: ANION GAP 8 MEQ/L (5-15); BICARBONATE 24.2 MEQ/L (21.0-32.0); BLOOD UREA NITROGEN 22 MG/DL (7-18); CHLORIDE 107 MEQ/L (98-107); GLOMERULAR FILTRATION RATE 99 ML/MIN (>89); MAGNESIUM 2.2 MG/DL (1.5-2.5); POTASSIUM 4.4 MEQ/L (3.5-5.1); SODIUM (NA) 139 MEQ/L (136-145)
[2017-05-08] MEDS ORDERED: LACTULOSE SYRUP 20 GM/30 ML CUP PO PRN (09:45)
[2017-05-08 10:00] VITALS: RESP 15
[2017-05-08 10:39] VITALS: BP 120/61
[2017-05-08 11:14] LABS: HEMOGLOBIN A1a 1.6 %; HEMOGLOBIN A1b 2.2 %; HEMOGLOBIN LA1C 2.2 %; HEMOGLOBIN P3 4.4 %
--- NOTE | 2017-05-08 11:16 | HHI.DS ---
Discharge Summary Admission Date May 04, 2017 at 14:30 Discharge Date: May 08, 2017 Admitting Diagnosis intractable pain, adenocarcinoma of the lung (1) Intractable pain ICD Code: R52 - Pain, unspecified Diagnosis: Principal Status: Acute (2) Metastatic adenocarcinoma to lung ICD Code: C78.00 - Secondary malignant neoplasm of unspecified lung Diagnosis: Principal Status: Acute Procedures biopsy of right deltoid mass Brief History - From Admission Mr. Abbott is 72 yo, with history of metastatic adenocarcinoma of the lung (diagnosed early April,), thyroid cancer, hypothyroidism, peripheral artery disease of the lower extremities, left bundle branch block. hyperlipidemia, and hypertension. Pt's oncologist is Dr. Mayo. 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 Holman ( approximately 8 days ago). Mr. Abbott reported having pain 2 weeks ago and was seen at [facility]. Imaging studies determine the presence of a right lung tumor. Dr. Mayo was consulted at that time and began further workup. Pt's pain was reportedly treated with Dilaudid and morphine. Today, pt was to be seen by radiation oncology to address pain issues. However, pt's pain has been worsening despite taking his aforementioned oral pain relievers and pt called Dr. Mayo's office as pain was 10/10. Pt was instructed to come to [facility] for evaluation and management of pain. Pt received Dilaudid and Decadron from ED team and pt improved. Pt noted his pain worsens with movement. Upon interview, pt noted having a "minor cough", decreased ambulation (using a walker has become more painful), decreased appetite, and constipation (last bowel movement was reported to have occurred on 05/03/17). Oral agents to treat his constipation were reported to be ineffective. Pt denied fever, nausea, vomiting , shortness of breath, abdominal pain, chest pain, dysuria. CBC/BMP: 05/08/17 0812 05/08/17 0812 Significant Findings Laboratory Tests Test 05/06/17 03:40 05/06/17 12:25 05/08/17 08:12 Urine Turbidity HAZY (CLEAR) Urine Glucose (UA) 150 mg/dL (NEG) Urine Ketones TRACE mg/dL (NEG) Urine Bacteria RARE /hpf (NONE) Urine Mucus FEW /lpf (OCC) Blood Urea Nitrogen 19 MG/DL (7-18) 22 MG/DL (7-18) Random Glucose 159 MG/DL (74-106) 110 MG/DL (74-106) Phosphorus Level 2.2 MG/DL (2.5-4.9) Aspartate Amino Transf (AST/SGOT) 38 U/L (15-37) Potassium Level 5.2 MEQ/L (3.5-5.1) Carbon Dioxide Level 19.7 MEQ/L (21.0-32.0) Estimat Glomerular Filtration Rate 86 ML/MIN (>89) White Blood Count 14.3 TH/MM3 (4.0-11.0) Hemoglobin 12.3 GM/DL (13.0-17.0) Hematocrit 37.9 % (39.0-51.0) Mean Corpuscular Volume 79.9 FL (80.0-100.0) Mean Corpuscular Hemoglobin 25.8 PG (27.0-34.0) Neutrophils (%) (Auto) 85.9 % (16.0-70.0) Lymphocytes (%) (Auto) 6.4 % (9.0-44.0) Neutrophils # (Auto) 12.3 TH/MM3 (1.8-7.7) Lymphocytes # (Auto) 0.9 TH/MM3 (1.0-4.8) Monocytes # (Auto) 1.1 TH/MM3 (0-0.9) Calcium Level 8.3 MG/DL (8.5-10.1) Imaging Last Impressions Soft Tissue Biopsy 05/05/17 0000 Signed Impressions: Service Date/Time: April 09:59 - CONCLUSION: Uncomplicated ultrasound guided needle biopsy of the right deltoid mass. Miah Jiménez MD Sacrum/Coccyx MRI 05/04/17 0000 Signed Impressions: Service Date/Time: Thursday, May 04, 2017 14:33 - CONCLUSION: 1. There are metastatic lesions are evident involving both ilium, the right acetabulum and the central aspect of the sacrum. No findings to indicate insufficiency fracture are identified. 2. Enlargement of the prostate. Gautam Mathias MD Lumbar Spine MRI 05/04/17 0000 Signed Impressions: Service Date/Time: Thursday, May 04, 2017 14:33 - CONCLUSION: 1. The post contrast imaging demonstrates abnormal enhancement involving the L3 and S1 vertebral bodies concerning for metastatic disease. Of note, the enhancement in L3 extends back to the pedicle and the articular facets on the right side. There is a very subtle edema in the superior endplate of L3 probably related to the metastatic disease. No significant loss of vertebral body height is identified. 2. Degenerated disc at L4-5. 3. 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 4. Overall appearance the exam is stable compared to the previous dated 04/15/17. 5. Stable compared to previous examination. Gautam Mathias MD PE at Discharge Well-developed, well-nourished in no distress Skin is warm nor rash HEENT pupils equally reactive to light. Jose Cruz in the occiput in place Lungs are clear and equal in expansion Regular rate and rhythm Abdomen soft nontender Extremities no edema and cyanosis. No signs of cellulitis Alert and oriented 3 No significant change in PE from previous Hospital Course Mr. Abbott is 72 yo, with history of metastatic adenocarcinoma of the lung (diagnosed early April,), thyroid cancer, hypothyroidism, peripheral artery disease of the lower extremities, left bundle branch block, hyperlipidemia, and hypertension. Pt's oncologist is Dr. Mayo. 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 Holman ( approximately 8 days ago). He presents to the emergency department because of intractable pain Intractable Pain Metastatic lung adenocarcinoma -Admit to inpatient service. -Improving pain control continue Oramorph 30 mg twice a day and add as needed morphine sulfate image IR for breakthrough pain -Dexamethasone 4mg by mouth q 6 hrs. -Consult Dr. Mayo, oncologist. RT to start next week -Consulted neurosurgery recommended nonsurgical management at this time. Follow up pathology Constipation. He is stooling. -Hilaria-colace 1 tablet by mouth twice daily. -Milk of Magnesia 30 ml by mouth q 12 hrs as needed (mild constipation). -Senokot 17.2 mg by mouth q 12 hrs as needed (moderate severe constipation) -Ducolax 10 mg per rectum daily as needed (severe constipation) -Continue Lactulose 30 ml per mouth daily Intractable severe back pain. -MRI of the lumbar spine above shows some abnormal enhancement involving the L3 and S1 vertebral bodies concerning for metastatic disease. Degenerative disc disease. -Neurosurgery consulted continue dexamethasone for now. Hypothyroidism -Continue levothyroxine. Hypertension -Restart lisinopril and atenolol with hold parameters Leukocytosis -No current signs of infection. Urinalysis with no evidence of infection Hyperglycemia. Follow-up A1c Hiccups. Improved s/p thorazine DVT prophylaxis: -SCD's -Lovenox Pt Condition on Discharge: Stable Discharge Disposition: Discharge Home Discharge Time: > 30 minutes Discharge Instructions DIET: Follow Instructions for: Heart Healthy Diet Activities you can perform: Regular-No Restrictions Activities to Avoid: Driving Follow up Referrals: Oncology - 1 Week PCP Follow-up - 2-3 Days New Medications: Lactulose Liq (Lactulose Liq) 10 Gm/15 Ml Soln 30 ML PO QD for Constipation, #1000 ML 0 Refills Dexamethasone (Dexamethasone) 4 Mg Tab 4 MG PO Q6HR for Control Inflammation, #120 TAB Morphine ER (Morphine ER) 30 Mg Tab 30 MG PO Q12HR for Pain Management, #14 TAB Pantoprazole (Protonix) 20 Mg Tab 20 MG PO DAILY for Manage Heartburn, #30 TAB Sennosides-Docusate Sodium (Senna Plus 8.6-50 mg) 8.6 Mg-50 Mg Tab 1 TAB PO BID for Prevent Constipation, #60 TAB Continued Medications: Atenolol (Atenolol) 25 Mg Tab 25 MG PO DAILY for Blood Pressure Management, #30 TAB Cholecalciferol (Vitamin D3) 5,000 Unit Cap 5000 UNITS PO DAILY for Nutritional Supplement, #30 CAP 0 Refills Hydromorphone (Dilaudid) 2 Mg Tab 2 MG PO Q6H PRN for pain, #60 TAB Levothyroxine (Levothyroxine) 125 Mcg Tab 125 MCG PO DAILY for Thyroid, #30 TAB 0 Refills Lidocaine (Lidoderm) 5 % Adh..patch 1 PATCH T-DERMAL DAILY for Pain Management, #20 PATCH 12 hrs on 12 hrs off Lisinopril (Lisinopril) 20 Mg Tab 20 MG PO DAILY, #30 TAB 0 Refills Discontinued Medications: Morphine ER (Morphine ER) 15 Mg Tab 15 MG PO BID for Pain Management, TAB 0 Refills Sennosides (Senna-Tabs) 8.6 Mg Tab 8.6 MG PO BID for Constipation, #30 TAB 0 Refills Marquise Boss MD May 08, 2017 11:16
== END 2017-05-08 12:16 | disposition home or self-care (01) | DRG 501 ==
LOC: NEPE 12:01 → NEDA 14:30 → HOCA 18:17
PROVIDERS: ADMIT Internal Medicine; ATTEND Internal Medicine
PROC: 0KB73ZX Excision of Right Upper Arm Muscle, Percutaneous Approach, Diagnostic (ICD-10-PCS; principal; 2017-05-05)
DX: C79.51 Secondary malignant neoplasm of bone (principal); C78.00 Secondary malignant neoplasm of unspecified lung; C79.89 Secondary malignant neoplasm of other specified sites; C34.90 Malignant neoplasm of unspecified part of unspecified bronchus or lung; G89.3 Neoplasm related pain (acute) (chronic); C44.42 Squamous cell carcinoma of skin of scalp and neck; E78.00 Pure hypercholesterolemia, unspecified; E89.0 Postprocedural hypothyroidism; I10 Essential (primary) hypertension; Z85.850 Personal history of malignant neoplasm of thyroid; Z95.5 Presence of coronary angioplasty implant and graft; I25.10 Atherosclerotic heart disease of native coronary artery without angina pectoris; I73.9 Peripheral vascular disease, unspecified; Z87.891 Personal history of nicotine dependence; Z80.0 Family history of malignant neoplasm of digestive organs; M51.36 Other intervertebral disc degeneration, lumbar region; K59.00 Constipation, unspecified; R06.6 Hiccough; R73.9 Hyperglycemia, unspecified
CPT/HCPCS: 20206; 72158; 72197; 76942; 77263; 77290; 77334; 80048; 80053; 81001; 83036; 83735; 84100; 85025; 85610; 85730; 88305; 88307; 88341; 88342; 96374; 96375; 99223; A9579; J1100; J1170; J1644; J1650; J2060; J2270; J2405; J2430; J7040; J8540

== ENCOUNTER 2017-05-13 12:38 | Inpatient (IN) | payer OTHER, MEDICARE ==
[2017-05-13] VITALS (8 sets, daily range): BP systolic 150–209; BP diastolic 69–94; PULSE 84–114; RESP 17–20; TEMP 97.3–97.8; O2SAT 92–98
[~2017-05-13] VITALS: Ht 182.9 cm; Wt 85.3 kg
[~2017-05-13 12:38] MED LIST changes: +CHOL5000 PO; +DEXA4TAB PO; -HYDR-3516 PO; +LACT10SO PO; +MORP1TAB25 PO; +PANT20 PO; +SENN1TAB PO
[2017-05-13] MEDS ORDERED: ONDANSETRON HCL 4 MG/2 ML VIAL IV PUSH ONE (13:00)
[2017-05-13] MEDS ORDERED: SODIUM CHLOR 0.9% 1000 ML INJ 1,000 ML IV SCH (13:00)
[2017-05-13] MEDS ORDERED: HYDROmorphone HCL PF 1 MG/ML VIAL IV PUSH ONE ×4 (13:00→17:00)
[2017-05-13 13:20] LABS: AUTOMATED NEUTROPHIL # 21.8 TH/MM3 (1.8-7.7); BASOPHIL % 0.1 % (0.0-2.0); HEMATOCRIT 45.7 % (39.0-51.0); LYMPH % 3.8 % (9.0-44.0); LYMPHOCYTE # 0.9 TH/MM3 (1.0-4.8); MEAN CELL VOLUME 81.1 FL (80.0-100.0); MEAN CORPUSCULAR HEMOGLOBIN 25.8 PG (27.0-34.0); MEAN CORPUSCULAR HGB CONC 31.9 % (32.0-36.0); MONO % 5.2 % (0.0-8.0); NEUT % 90.9 % (16.0-70.0); PLATELET COUNT 213 TH/MM3 (150-450); RED BLOOD COUNT 5.64 MIL/MM3 (4.50-5.90); RED CELL DISTRIBUTION WIDTH 16.9 % (11.6-17.2)
[2017-05-13 13:22] LABS: HEMO FLAGS AUTO DIFF
--- NOTE | 2017-05-13 13:49 | PD ---
HPI Chief Complaint: Back/ Neck Pain or Injury Time Seen by Provider: 12:40 Travel History International Travel<30 days: No Contact w/Intl Traveler<30days: No Traveled to known affect area: No History of Present Illness HPI 72-year-old male complains of severe low back pain. Patient has history of lung cancer with metastatic to the back. Patient has been seen by oncologist Dr. Mayo and has been taking Dilaudid 2 mg every 6 hour and morphine sulfate 50 mg twice a day for pain. Patient states that he has severe pain to the low back today despite taking the pain medication. Patient denies any headache. Patient denies any chest pain or shortness of breath. Patient denies abdominal pain. Patient denies any focal weakness or numbness of extremity. Patient denies any bladder or bowel control problem. PFSH Past Medical History Autoimmune Disease: No Cancer: Yes (Thyroid, BACK OF HEAD TO BE REMOVED 03/31) Cardiac Catheterization: Yes (3 stents) Cardiovascular Problems: Yes High Cholesterol: Yes Diabetes: No Endocrine: No Genitourinary: No Hypertension: Yes Immune Disorder: No Musculoskeletal: Yes Neurologic: No Psychiatric: No Reproductive: No Respiratory: No Past Surgical History Abdominal Surgery: Yes (CHOLECYSTECTOMY, APPENDECTOMY) Appendectomy: Yes Cardiac Surgery: Yes (3 STENTS) Cholecystectomy: Yes Endocrine Surgery: Yes (Thyroidectomy ) Other Surgery: Yes (Face) Social History Alcohol Use: Yes (occ) Tobacco Use: No Substance Use: No Allergies-Medications (Allergen,Severity, Reaction): Coded Allergies: ampicillin (Verified Adverse Reaction, Severe, N/V, 05/13/17) Reported Meds & Prescriptions Reported Meds & Active Scripts Active Lactulose Liq (Lactulose) 10 Gm/15 Ml Soln 30 Ml PO QD Protonix (Pantoprazole Sodium) 20 Mg Tab 20 Mg PO DAILY Dexamethasone 4 Mg Tab 4 Mg PO Q6HR Senna Plus 8.6-50 mg (Sennosides-Docusate Sodium) 8.6 Mg-50 Mg Tab 1 Tab PO BID Morphine ER (Morphine Sulfate) 30 Mg Tab 30 Mg PO Q12HR Dilaudid (Hydromorphone HCl) 2 Mg Tab 2 Mg PO Q6H PRN Reported Vitamin D3 (Cholecalciferol) 5,000 Unit Cap 5,000 Units PO DAILY Levothyroxine (Levothyroxine Sodium) 125 Mcg Tab 125 Mcg PO DAILY Atenolol 25 Mg Tab 25 Mg PO DAILY Lisinopril 20 Mg Tab 20 Mg PO DAILY Review of Systems General / Constitutional: No: Fever Eyes: No: Visual changes HENT: No: Headaches Cardiovascular: No: Chest Pain or Discomfort Respiratory: No: Shortness of Breath Gastrointestinal: No: Abdominal Pain Genitourinary: No: Dysuria Musculoskeletal: No: Pain Skin: No Rash Neurologic: No: Weakness Psychiatric: No: Depression Endocrine: No: Polydipsia Hematologic/Lymphatic: No: Easy Bruising Physical Exam Narrative GENERAL: Well-nourished, well-developed patient. SKIN: Focused skin assessment warm/dry. HEAD: Normocephalic. EYES: No scleral icterus. No injection or drainage. NECK: Supple, trachea midline. No JVD or lymphadenopathy. CARDIOVASCULAR: Regular rate and rhythm without murmurs, gallops, or rubs. RESPIRATORY: Breath sounds equal bilaterally. No accessory muscle use. GASTROINTESTINAL: Abdomen soft, non-tender, nondistended. MUSCULOSKELETAL: No cyanosis, or edema. BACK: Moderate to severe tenderness on palpation lumbar area, without obvious deformity. No CVA tenderness. Neurologic exam normal. Data Data Last Documented VS Vital Signs Date Time Temp Pulse Resp B/P (MAP) Pulse Ox O2 Delivery O2 Flow Rate FiO2 05/13/17 13:28 97.8 96 17 182/82 (115) 97 Room Air Orders Orders Electrocardiogram (05/13/17 ) Electrocardiogram (05/13/17 12:48) Complete Blood Count With Diff (05/13/17 12:48) Comprehensive Metabolic Panel (05/13/17 12:48) Prothrombin Time / Inr (Pt) (05/13/17 12:48) Act Partial Throm Time (Ptt) (05/13/17 12:48) Iv Access Insert/Monitor (05/13/17 12:48) Ecg Monitoring (05/13/17 12:48) Oximetry (05/13/17 12:48) Sodium Chlor 0.9% 1000 Ml Inj (Ns 1000 M (05/13/17 13:00) Hydromorphone Pf Inj (Dilaudid Pf Inj) (05/13/17 13:00) Ondansetron Inj (Zofran Inj) (05/13/17 13:00) Hydromorphone Pf Inj (Dilaudid Pf Inj) (05/13/17 13:15) Labs Laboratory Tests Test 05/13/17 13:00 White Blood Count 24.0 TH/MM3 Red Blood Count 5.64 MIL/MM3 Hemoglobin 14.6 GM/DL Hematocrit 45.7 % Mean Corpuscular Volume 81.1 FL Mean Corpuscular Hemoglobin 25.8 PG Mean Corpuscular Hemoglobin Concent 31.9 % Red Cell Distribution Width 16.9 % Platelet Count 213 TH/MM3 Mean Platelet Volume 8.0 FL Neutrophils (%) (Auto) 90.9 % Lymphocytes (%) (Auto) 3.8 % Monocytes (%) (Auto) 5.2 % Eosinophils (%) (Auto) 0.0 % Basophils (%) (Auto) 0.1 % Neutrophils # (Auto) 21.8 TH/MM3 Lymphocytes # (Auto) 0.9 TH/MM3 Monocytes # (Auto) 1.2 TH/MM3 Eosinophils # (Auto) 0.0 TH/MM3 Basophils # (Auto) 0.0 TH/MM3 CBC Comment AUTO DIFF MDM Medical Decision Making Medical Screen Exam Complete: Yes Emergency Medical Condition: Yes Differential Diagnosis Differential diagnosis including intractable pain, fracture, HNP. Narrative Course 72-year-old male with intractable low back pain despite taking morphine and Dilaudid by mouth at home for back pain. History of metastatic lung cancer. Carlos Mccormick MD May 13, 2017 13:49
[2017-05-13 13:52] LABS: ALKALINE PHOSPHATASE 114 U/L (45-117); ALT (GPT) 178 U/L (12-78); TOTAL BILIRUBIN ADULT 1.2 MG/DL (0.2-1.0)
[2017-05-13 13:54] LABS: ANION GAP 12 MEQ/L (5-15); AST (GOT) 42 U/L (15-37); BICARBONATE 21.6 MEQ/L (21.0-32.0); BLOOD UREA NITROGEN 28 MG/DL (7-18); CHLORIDE 106 MEQ/L (98-107); GLOMERULAR FILTRATION RATE 76 ML/MIN (>89); POTASSIUM 4.8 MEQ/L (3.5-5.1); SODIUM (NA) 140 MEQ/L (136-145)
[2017-05-13 14:00] LABS: METAMYELOCYTES 3 % (0-1); MYELOCYTES 3 % (0-0); NEUTROPHIL # MANUAL DIFF 21.1 TH/MM3 (1.8-7.7); POLYS (SEG NEUTROPHILS) 82 % (16-70); WBC DIFF SAMPLE 100
[2017-05-13 14:02] LABS: PLATELET ESTIMATE SMEAR NORMAL (NORMAL); PLATELET MORPHOLOGY NORMAL (NORMAL); SCAN/DIFF FINAL DIFF MANUAL
[2017-05-13 14:18] LABS: INTERNATIONAL NORMALIZED RATIO 1.2 RATIO; PROTHROMBIN TIME - PATIENT 13.8 SEC (9.8-11.6)
[2017-05-13 14:20] LABS: APTT (PATIENT) 23.1 SEC (24.3-30.1)
[2017-05-13] MEDS ORDERED: LORazepam 2 MG/ML VIAL IV PUSH ONE (14:30)
--- NOTE | 2017-05-13 16:51 | EKG ---
Date Performed: 05/13/2017 Time Performed: 12:46:12 PTAGE: 72 years EKG: Sinus rhythm LEFT BUNDLE BRANCH BLOCK ABNORMAL ECG NO PREVIOUS TRACING DOCTOR: Cristian Duarte Interpretating Date/Time 05/13/2017 16:50:58
[2017-05-13] MEDS ORDERED: LORazepam 2 MG/ML VIAL IV PUSH PRN (17:00)
[2017-05-13] MEDS ORDERED: LACTULOSE SYRUP 20 GM/30 ML CUP PO PRN (17:00)
[2017-05-13] MEDS ORDERED: SENNOSIDES 8.6 MG TAB PO PRN (17:00)
[2017-05-13] MEDS ORDERED: PROCHLORPERAZINE 25 MG SUPP RECTAL PRN (17:00)
[2017-05-13] MEDS ORDERED: TEMAZEPAM 15 MG CAP PO PRN (17:00)
[2017-05-13] MEDS ORDERED: HYDROmorphone HCL PF 1 MG/ML VIAL IV PUSH PRN ×2 (17:00)
[2017-05-13] MEDS ORDERED: ACETAMINOPHEN 325 MG TAB PO PRN ×2 (17:00)
[2017-05-13] MEDS ORDERED: ONDANSETRON HCL 4 MG/2 ML VIAL IVP PRN (17:00)
[2017-05-13] MEDS ORDERED: NALOXONE HCL 0.4 MG/ML AMP IV PUSH PRN (17:00)
[2017-05-13] MEDS ORDERED: BISACODYL 10 MG SUPP RECTAL PRN (17:00)
[2017-05-13] MEDS ORDERED: MAGNESIUM HYDROXIDE SUSP 30 ML CUP PO PRN (17:00)
--- NOTE | 2017-05-13 17:25 | HHI.HP ---
[facility] Service [place] [facility] Primary Care Physician Krishna Arteaga M.D. Admission Diagnosis intractable back pain. History of metastatic lung CA. Diagnoses: (1) Uncontrolled pain Diagnosis: Principal (2) Lung cancer Diagnosis: Principal (3) Lung cancer metastatic to bone Diagnosis: Principal (4) HTN (hypertension) Diagnosis: Principal (5) Constipation Diagnosis: Principal Chief Complaint: Uncontrolled pain Travel History International Travel<30 Days: No Contact w/Intl Traveler <30 Da: No Traveled to Known Affected Are: No History of Present Illness 72-year-old male complains of severe low back pain. Patient has history of lung cancer with metastatic to the back. Patient has been seen by oncologist Dr. Mayo and has been taking Dilaudid 2 mg every 6 hour and morphine sulfate 50 mg twice a day for pain. Patient states that he has severe pain to the low back today despite taking the pain medication. Patient denies any headache. Patient denies any chest pain or shortness of breath. Patient denies abdominal pain. Patient denies any focal weakness or numbness of extremity. Patient denies any bladder or bowel control problem. Review of Systems Constitutional: DENIES: Diaphoretic episodes, Fatigue, Fever, Weight gain, Weight loss, Chills, Dizziness, Change in appetite, Night Sweats Endocrine: DENIES: Heat/cold intolerance, Polydipsia, Polyuria, Polyphagia Eyes: DENIES: Blurred vision, Diplopia, Eye inflammation, Eye pain, Vision loss , Photosensitivity Ears, nose, mouth, throat: DENIES: Tinnitus, Hearing loss, Vertigo, Nasal discharge, Oral lesions Respiratory: DENIES: Apneas, Cough, Snoring, Wheezing, Hemoptysis, Sputum production Cardiovascular: DENIES: Chest pain, Palpitations, Syncope, Dyspnea on Exertion Gastrointestinal: COMPLAINS OF: Constipation, DENIES: Abdominal pain, Black stools, Bloody stools Genitourinary: DENIES: Sexual dysfunction, Urinary frequency Musculoskeletal: COMPLAINS OF: Joint pain, Back pain, DENIES: Muscle aches, Stiffness, Joint Swelling Integumentary: DENIES: Abnormal pigmentation, Nail changes Hematologic/lymphatic: DENIES: Bruising, Lymphadenopathy Immunologic/allergic: DENIES: Eczema, Urticaria Neurologic: COMPLAINS OF: Abnormal gait, DENIES: Headache, Localized weakness, Paresthesias, Seizures, Speech Problems Psychiatric: COMPLAINS OF: Anxiety, Depression, Agitation, DENIES: Confusion, Mood changes, Hallucinations, Suicidal Ideation, Homicidal Ideation Past Family Social History Past Medical History Coronary artery disease history of stents 3 Hypercholesterolemia Hypertension Back pain Recent issues with uncontrolled pain Metastatic adenocarcinoma of the lung diagnosed April 2017 right lung tumor Peripheral arterial disease of bilateral lower extremities Left bundle-branch block 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 Holman Past Surgical History Cholecystectomy Appendectomy Right second digit surgery Thyroidectomy Reported Medications Reported Meds & Active Scripts Active Lactulose Liq (Lactulose) 10 Gm/15 Ml Soln 30 Ml PO QD Protonix (Pantoprazole Sodium) 20 Mg Tab 20 Mg PO DAILY Dexamethasone 4 Mg Tab 4 Mg PO Q6HR Senna Plus 8.6-50 mg (Sennosides-Docusate Sodium) 8.6 Mg-50 Mg Tab 1 Tab PO BID Morphine ER (Morphine Sulfate) 30 Mg Tab 30 Mg PO Q12HR Dilaudid (Hydromorphone HCl) 2 Mg Tab 2 Mg PO Q6H PRN Reported Vitamin D3 (Cholecalciferol) 5,000 Unit Cap 5,000 Units PO DAILY Levothyroxine (Levothyroxine Sodium) 125 Mcg Tab 125 Mcg PO DAILY Atenolol 25 Mg Tab 25 Mg PO DAILY Lisinopril 20 Mg Tab 20 Mg PO DAILY Allergies: Coded Allergies: ampicillin (Verified Adverse Reaction, Severe, N/V, 05/13/17) Active Ordered Medications Current Medications Sodium Chloride 1,000 ml @ 125 mls/hr Q8H IV Last administered on 05/13/17 12 :58; Start 05/13/17 at 13:00 Hydromorphone HCl (Dilaudid Pf Inj) 1 mg ONCE ONCE IV PUSH Last administered on 05/13/17 12:58; Start 05/13/17 at 13:00; Stop 05/13/17 at 13:01; Status DC Ondansetron HCl (Zofran Inj) 4 mg ONCE ONCE IV PUSH Last administered on 12:58; Start 05/13/17 at 13:00; Stop 05/13/17 at 13:01; Status DC Hydromorphone HCl (Dilaudid Pf Inj) 1 mg ONCE ONCE IV PUSH Last administered on 05/13/17 13:28; Start 05/13/17 at 13:15; Stop 05/13/17 at 13:16; Status DC Lorazepam (Ativan Inj) 1 mg ONCE ONCE IV PUSH Last administered on 05/13/17 14:32; Start 05/13/17 at 14:30; Stop 05/13/17 at 14:31; Status DC Hydromorphone HCl (Dilaudid Pf Inj) 1 mg ONCE ONCE IV PUSH Last administered on 05/13/17 14:32; Start 05/13/17 at 14:30; Stop 05/13/17 at 14:31; Status DC Atenolol (Tenormin) 25 mg DAILY PO ; Start 05/14/17 at 09:00; Status UNV Cholecalciferol (Vitamin D3) 5,000 units DAILY PO ; Start 05/14/17 at 09:00; Status UNV Dexamethasone (Decadron) 4 mg Q6HR PO ; Start 05/13/17 at 18:00; Status UNV Hydromorphone HCl (Dilaudid) 2 mg Q4H PRN PO pain5-10; Start 05/13/17 at 17:00 ; Status UNV Lactulose (Lactulose Liq) 30 ml DAILY PO ; Start 05/14/17 at 09:00; Status UNV Levothyroxine Sodium (Synthroid) 125 mcg DAILY PO ; Start 05/14/17 at 09:00; Status UNV Lisinopril (Prinivil) 20 mg DAILY PO ; Start 05/14/17 at 09:00; Status UNV Morphine Sulfate (Oramorph Sr) 30 mg Q8HR PO ; Start 05/13/17 at 17:00; Status UNV Pantoprazole Sodium (Protonix) 20 mg DAILY PO ; Start 05/14/17 at 09:00; Status UNV Senna/Docusate Sodium (Hilaria-Colace) 1 tab BID PO ; Start 05/13/17 at 21:00; Status UNV Hydromorphone HCl (Dilaudid Pf Inj) 1 mg ONCE ONCE IV PUSH ; Start 05/13/17 at 17:00; Stop 05/13/17 at 17:01; Status DC Sodium Chloride 1,000 ml @ 100 mls/hr Q10H IV ; Start 05/13/17 at 16:59; Status UNV Sodium Chloride (NS Flush) 2 ml UNSCH PRN IV FLUSH FLUSH AFTER USING IV ACCESS ; Start 05/13/17 at 17:00; Status UNV Sodium Chloride (NS Flush) 2 ml BID IV FLUSH ; Start 05/13/17 at 21:00; Status UNV Acetaminophen (Tylenol) 650 mg Q4H PRN PO TEMP > 100.4; Start 05/13/17 at 17:00 ; Status UNV Ondansetron HCl (Zofran Inj) 4 mg Q6H PRN IVP NAUSEA OR VOMITING; Start at 17:00; Status UNV Prochlorperazine (Compazine Supp) 25 mg Q12H PRN SD NAUSEA OR VOMITING; Start 05/13/17 at 17:00; Status UNV Temazepam (Restoril) 15 mg HS PRN PO INSOMNIA; Start 05/13/17 at 17:00; Status UNV Enoxaparin Sodium (Lovenox Inj) 40 mg Q24H SQ ; Start 05/13/17 at 17:00; Status UNV Acetaminophen (Tylenol) 650 mg Q6H PRN PO PAIN SCALE 1 TO 2; Start 05/13/17 at 17:00; Status UNV Oxycodone HCl (Roxicodone) 10 mg Q4H PRN PO PAIN SCALE 6 TO 10; Start 05/13/17 at 17:00; Status UNV Hydromorphone HCl (Dilaudid Pf Inj) 1 mg Q3H PRN IV PUSH Pain 3-5; if unable to take PO; Start 05/13/17 at 17:00; Status UNV Hydromorphone HCl (Dilaudid Pf Inj) 2 mg Q3H PRN IV PUSH Pain 6-10;if unable to take PO; Start 05/13/17 at 17:00; Status UNV Hydromorphone HCl (Dilaudid Pf Inj) 2 mg Q3H PRN IV PUSH BREAKTHROUGH PAIN; Start 05/13/17 at 17:00; Status UNV Oxycodone HCl (Roxicodone) 5 mg Q4H PRN PO PAIN SCALE 3 TO 5; Start 05/13/17 at 17:00; Status UNV Naloxone HCl (Narcan Inj) 0.4 mg UNSCH PRN IV PUSH SEE LABEL COMMENTS; Start at 17:00; Status UNV Senna/Docusate Sodium (Hilaria-Colace) 1 tab BID PO ; Start 05/13/17 at 21:00; Status UNV Magnesium Hydroxide (Milk Of Magnesia Liq) 30 ml Q12H PRN PO MILD - MODERATE CONSTIPATION; Start 05/13/17 at 17:00; Status UNV Sennosides (Senokot) 17.2 mg Q12H PRN PO MODERATE - SEVERE CONSTIPATION; Start 05/13/17 at 17:00; Status UNV Bisacodyl (Dulcolax Supp) 10 mg DAILY PRN RECTAL SEVERE CONSITIPATION; Start at 17:00; Status UNV Lactulose (Lactulose Liq) 30 ml DAILY PRN PO SEVERE CONSITIPATION; Start at 17:00; Status UNV Lorazepam (Ativan Inj) 1 mg Q6H PRN IV PUSH ANXIETY; Start 05/13/17 at 17:00; Status UNV Lorazepam (Ativan) 0.5 mg Q6HR PO ; Start 05/13/17 at 18:00; Status UNV Family History Hypertension Social History History of heavy tobacco abuse quit 2 months ago Physical Exam Vital Signs Vital Signs Date Time Temp Pulse Resp B/P (MAP) Pulse Ox O2 Delivery O2 Flow Rate FiO2 05/13/17 16:08 97.8 94 17 150/72 (98) 98 Room Air 05/13/17 15:02 17 05/13/17 14:38 97.8 92 17 150/69 (96) 96 Room Air 05/13/17 13:58 17 05/13/17 13:28 97.8 96 17 182/82 (115) 97 Room Air 05/13/17 13:28 17 05/13/17 12:55 20 97 Room Air 05/13/17 12:55 96 18 05/13/17 12:41 97.8 84 18 190/94 (126) 98 Physical Exam GENERAL: This is a well-nourished, well-developed patient, in severe distress SKIN: No rashes, ecchymoses or lesions. Cool and dry. HEAD: Atraumatic. Normocephalic. No temporal or scalp tenderness. EYES: Pupils equal round and reactive. Extraocular motions intact. No scleral icterus. No injection or drainage. ENT: Nose without bleeding, purulent drainage or septal hematoma. Throat without erythema, tonsillar hypertrophy or exudate. Uvula midline. Airway patent. NECK: Trachea midline. No JVD or lymphadenopathy. Supple, nontender, no meningeal signs. CARDIOVASCULAR: Regular rate and rhythm without murmurs, gallops, or rubs. S1 and S2 no S3 or S4 no heave or thrill or rub or gallop RESPIRATORY: Clear to auscultation. Breath sounds equal bilaterally. No wheezes , rales, or rhonchi. GASTROINTESTINAL: Abdomen soft, non-tender, nondistended. No hepato-splenomegaly , or palpable masses. No guarding. MUSCULOSKELETAL: Extremities without clubbing, cyanosis, or edema. No joint tenderness, effusion, or edema noted. No calf tenderness. Negative Homans sign bilaterally. NEUROLOGICAL: Awake and alert. Cranial nerves II through XII intact. Motor and sensory grossly within normal limits. Five out of 5 muscle strength in all muscle groups. Normal speech. Insight and judgment appears Limited at this time due to pain Mood and behavior is not appropriate due to his pain Laboratory Laboratory Tests Test 05/13/17 13:00 05/13/17 13:50 White Blood Count 24.0 Red Blood Count 5.64 Hemoglobin 14.6 Hematocrit 45.7 Mean Corpuscular Volume 81.1 Mean Corpuscular Hemoglobin 25.8 Mean Corpuscular Hemoglobin Concent 31.9 Red Cell Distribution Width 16.9 Platelet Count 213 Mean Platelet Volume 8.0 Neutrophils (%) (Auto) 90.9 Lymphocytes (%) (Auto) 3.8 Monocytes (%) (Auto) 5.2 Eosinophils (%) (Auto) 0.0 Basophils (%) (Auto) 0.1 Neutrophils # (Auto) 21.8 Lymphocytes # (Auto) 0.9 Monocytes # (Auto) 1.2 Eosinophils # (Auto) 0.0 Basophils # (Auto) 0.0 CBC Comment AUTO DIFF Differential Total Cells Counted 100 Neutrophils % (Manual) 82 Lymphocytes % 9 Monocytes % 3 Neutrophils # (Manual) 21.1 Metamyelocytes 3 Myelocytes 3 Differential Comment FINAL DIFF MANUAL Platelet Estimate NORMAL Platelet Morphology Comment NORMAL Red Cell Morphology Comment NORMAL Blood Urea Nitrogen 28 Creatinine 0.97 Random Glucose 144 Total Protein 6.4 Albumin 3.3 Calcium Level 8.3 Alkaline Phosphatase 114 Aspartate Amino Transf (AST/SGOT) 42 Alanine Aminotransferase (ALT/SGPT) 178 Total Bilirubin 1.2 Sodium Level 140 Potassium Level 4.8 Chloride Level 106 Carbon Dioxide Level 21.6 Anion Gap 12 Estimat Glomerular Filtration Rate 76 Prothrombin Time 13.8 Prothromb Time International Ratio 1.2 Activated Partial Thromboplast Time 23.1 Result Diagram: 05/13/17 1300 05/13/17 1300 Caprinmary VTE Risk Assessment Caprini VTE Risk Assessment: Mod/High Risk (score >= 2) Caprini Risk Assessment Model Point Value = 1 Point Value = 2 Point Value = 3 Point Value = 5 Age 41-60 Minor surgery BMI > 25 kg/m2 Swollen legs Varicose veins or History of unexplained or recurrent spontaneous Oral contraceptives or hormone replacement Sepsis (< 1 month) Serious lung disease, including pneumonia (< 1 month) Abnormal pulmonary function Acute myocardial infarction Congestive heart failure (< 1 month) History of inflammatory bowel disease Medical patient at bed rest Age 61-74 Arthroscopic surgery Major open surgery (> 45 min) Laparoscopic surgery (> 45 min) Malignancy Confined to bed (> 72 hours) Immobilizing plaster cast Central venous access Age >= 75 History of VTE Family history of VTE Factor V Leiden Prothrombin [id number] Lupus anticoagulant Anticardiolipin antibodies Elevated serum homocysteine Heparin-induced thrombocytopenia Other congenital or acquired thrombophilia Stroke (< 1 month) Elective arthroplasty Hip, pelvis, or leg fracture Acute spinal cord injury (< 1 month) Prophylaxis Regimen Total Risk Factor Score Risk Level Prophylaxis Regimen 0-1 Low Early ambulation 2 Moderate Order ONE of the following: *Sequential Compression Device (SCD) *Heparin 5000 units SQ BID 3-4 Higher Order ONE of the following medications: *Heparin 5000 units SQ TID *Enoxaparin/Lovenox 40 mg SQ daily (WT < 150 kg, CrCl > 30 mL/min) *Enoxaparin/Lovenox 30 mg SQ daily (WT < 150 kg, CrCl > 10-29 mL/min) *Enoxaparin/Lovenox 30 mg SQ BID (WT < 150 kg, CrCl > 30 mL/min) AND/OR *Sequential Compression Device (SCD) 5 or more Highest Order ONE of the following medications: *Heparin 5000 units SQ TID (Preferred with Epidurals) *Enoxaparin/Lovenox 40 mg SQ daily (WT < 150 kg, CrCl > 30 mL/min) *Enoxaparin/Lovenox 30 mg SQ daily (WT < 150 kg, CrCl > 10-29 mL/min) *Enoxaparin/Lovenox 30 mg SQ BID (WT < 150 kg, CrCl > 30 mL/min) AND *Sequential Compression Device (SCD) Assessment and Plan Problem List: (1) Lung cancer metastatic to bone ICD Code: C34.90 - Malignant neoplasm of unspecified part of unspecified bronchus or lung; C79.51 - Secondary malignant neoplasm of bone (2) Uncontrolled pain ICD Code: R52 - Pain, unspecified (3) HTN (hypertension) ICD Code: I10 - Essential (primary) hypertension (4) Lung cancer ICD Code: C34.90 - Malignant neoplasm of unspecified part of unspecified bronchus or lung (5) Constipation ICD Code: K59.00 - Constipation, unspecified Assessment and Plan Patient with metastatic adenocarcinoma of the lung with metastasis to the lumbar spine We'll consult his oncologist who saw him today Uncontrolled pain we will adjust medications increase by mouth Dilaudid increase by mouth morphine increase IV Dilaudid will have Ativan available for anxiety also Constipation we'll continue on good bowel regimen Intractable severe back pain shows degenerative disc disease probable metastatic disease Hypothyroidism continue his levothyroxine Hypertension continue on his lisinopril and his atenolol Leukocytosis due to steroids Hyperglycemia continue to follow up on his hemoglobin A1c checked TSH and free T4 and hemoglobin A1c in the morning Physical therapy and occupational therapy Palliative care would probably be helpful Code Status FULL Code Discussed Condition With Discussed with the emergency room physician discussed with patient discussed with family and RNs Physician Certification 2 Midnight Certification Type: Admission for Inpatient Services Order for Inpatient Services The services are ordered in accordance with Medicare regulations or non- Medicare payer requirements, as applicable. In the case of services not specified as inpatient-only, they are appropriately provided as inpatient services in accordance with the 2-midnight benchmark. Estimated LOS (days): 3 3 days is the estimated time the patient will need to remain in the hospital, assuming treatment plan goals are met and no additional complications. Post-Hospital Plan: Not yet determined Chau Bustamante DO May 13, 2017 17:25
[2017-05-13] MEDS: DEXAMETHASONE 4 MG TAB PO SCH (18:00)
[2017-05-13] MEDS: LORazepam 0.5 MG TAB PO SCH (18:00)
[2017-05-13] MEDS ORDERED: HYDROmorphone HCL 2 MG TAB PO PRN (20:00)
[2017-05-13] MEDS: SODIUM CHLOR 0.9% 1000 ML INJ 1,000 ML IV SCH (20:00)
[2017-05-13] MEDS: ENOXAPARIN SODIUM 40 MG/0.4 ML SYRINGE SQ SCH (20:00)
[2017-05-13] MEDS: MORPHINE SULFATE 30 MG CONTROLLED RELEASE TAB PO SCH (20:32)
[2017-05-13] MEDS: SODIUM CHLORIDE 0.9% FLUSH 10 ML FLUSH IV FLUSH SCH (21:00)
[2017-05-13] MEDS: DOCUSATE SODIUM 50 MG/SENNA 8.6 MG TAB PO SCH (21:00)
[2017-05-13] MEDS ORDERED: DOCUSATE SODIUM 50 MG/SENNA 8.6 MG TAB PO SCH (21:00)
[2017-05-13 21:28] LABS: BLOOD, URINE NEG (NEG); COMMENT (UR) CULT NOT INDICATED; CULTURE IF INDICATED CULT NOT INDICATED; GLUCOSE,URINE TRACE mg/dL (NEG); KETONE, URINE TRACE mg/dL (NEG); MUCUS URINE FEW /lpf (OCC); NITRITE,URINE NEG (NEG); URINE COLOR YELLOW (YELLW/STRAW)
[2017-05-14] VITALS (8 sets, daily range): BP systolic 123–177; BP diastolic 61–87; PULSE 83–107; RESP 14–19; TEMP 96.3–99; O2SAT 92–96
[2017-05-14] MEDS: MORPHINE SULFATE 30 MG CONTROLLED RELEASE TAB PO SCH ×3 (02:00→18:00)
[2017-05-14] MEDS: HYDROmorphone HCL PF 1 MG/ML VIAL IV PUSH PRN ×3 (02:48→09:30)
[2017-05-14] MEDS: DEXAMETHASONE 4 MG TAB PO SCH ×4 (04:04→18:00)
[2017-05-14] MEDS: LEVOTHYROXINE SODIUM 125 MCG TAB PO SCH (04:04)
[2017-05-14] MEDS: LORazepam 0.5 MG TAB PO SCH ×2 (04:04)
[2017-05-14] MEDS: SODIUM CHLOR 0.9% 1000 ML INJ 1,000 ML IV SCH ×2 (06:50→20:00)
[2017-05-14 07:52] LABS: AUTOMATED NEUTROPHIL # 18.7 TH/MM3 (1.8-7.7); BASOPHIL % 0.1 % (0.0-2.0); EOSINOPHIL % 0.1 % (0.0-4.0); HEMATOCRIT 38.2 % (39.0-51.0); LYMPH % 3.8 % (9.0-44.0); LYMPHOCYTE # 0.8 TH/MM3 (1.0-4.8); MEAN CELL VOLUME 80.8 FL (80.0-100.0); MEAN CORPUSCULAR HEMOGLOBIN 26.1 PG (27.0-34.0); MEAN CORPUSCULAR HGB CONC 32.3 % (32.0-36.0); MONO % 7.9 % (0.0-8.0); NEUT % 88.1 % (16.0-70.0); PLATELET COUNT 140 TH/MM3 (150-450); RED BLOOD COUNT 4.73 MIL/MM3 (4.50-5.90); RED CELL DISTRIBUTION WIDTH 16.5 % (11.6-17.2); WHITE BLOOD COUNT 21.2 TH/MM3 (4.0-11.0)
[2017-05-14 07:58] LABS: HEMO FLAGS AUTO DIFF
[2017-05-14 08:27] LABS: ALKALINE PHOSPHATASE 91 U/L (45-117); ALT (GPT) 113 U/L (12-78); ANION GAP 9 MEQ/L (5-15); AST (GOT) 31 U/L (15-37); BICARBONATE 23.4 MEQ/L (21.0-32.0); BLOOD UREA NITROGEN 24 MG/DL (7-18); CALCIUM-PROTEIN CORRECTED 8.6 MG/DL (8.5-10.1); CHLORIDE 107 MEQ/L (98-107); FREE T4 1.12 NG/DL (0.76-1.46); GLOMERULAR FILTRATION RATE 122 ML/MIN (>89); MAGNESIUM 2.2 MG/DL (1.5-2.5); POTASSIUM 4.2 MEQ/L (3.5-5.1); SODIUM (NA) 139 MEQ/L (136-145); TOTAL BILIRUBIN ADULT 1.2 MG/DL (0.2-1.0)
[2017-05-14 08:46] LABS: PLATELET ESTIMATE SMEAR LOW (NORMAL); PLATELET MORPHOLOGY NORMAL (NORMAL); SCAN/DIFF AUTO DIFF CONFIRMED
[2017-05-14] MEDS ORDERED: LACTULOSE SYRUP 20 GM/30 ML CUP PO SCH (09:00)
[2017-05-14] MEDS ORDERED: DIATRIZOATE MEGLUM/DIATRIZOATE SOD 9 ML CUP PO ONE (09:00)
[2017-05-14] MEDS: PANTOPRAZOLE SOD 20 MG DELAYED RELEASE TAB PO SCH (09:27)
[2017-05-14] MEDS: LISINOPRIL 20 MG TAB PO SCH (09:27)
[2017-05-14] MEDS: ATENOLOL 25 MG TAB PO SCH (09:27)
[2017-05-14] MEDS: DOCUSATE SODIUM 50 MG/SENNA 8.6 MG TAB PO SCH ×2 (09:27→21:31)
[2017-05-14] MEDS: CHOLECALCIFEROL (VIT D3) 5000 UNIT CAP PO SCH (09:27)
--- NOTE | 2017-05-14 10:21 | PD.ONC.PN ---
Subjective Subjective Remarks Afebrile overnight. Patient very somnolent this AM. Pain remains in lumbar spine. He states the pain is in the middle of the spine and worse with movement. Discussed with and patient events of the last few days. Pain was well controlled until when he sat down on toilet to have bowel movement. When he got up, the pain in his back had significantly worsened. Tuesday when he went for his appointment with Dr. Mayo, the pain was so severe, his brought him to the ED. He did have a bowel movement yesterday, but has still been having problems with constipation at home. Objective Data Date Time Temp Pulse Resp B/P (MAP) Pulse Ox O2 Delivery O2 Flow Rate FiO2 05/14/17 08:00 99.0 100 14 123/61 (81) 95 05/14/17 06:49 20 05/14/17 04:00 96.4 103 18 145/81 (102) 92 05/14/17 00:00 97.4 107 19 177/87 (117) 94 05/13/17 22:00 20 05/13/17 20:00 97.7 114 18 159/93 (115) 92 05/13/17 17:45 97.3 108 18 209/94 (132) 94 05/13/17 17:31 97.8 78 16 155/81 (105) 98 05/13/17 16:08 97.8 94 17 150/72 (98) 98 Room Air 05/13/17 15:02 17 05/13/17 14:38 97.8 92 17 150/69 (96) 96 Room Air 05/13/17 13:58 17 05/13/17 13:28 97.8 96 17 182/82 (115) 97 Room Air 05/13/17 13:28 17 05/13/17 12:55 20 97 Room Air 05/13/17 12:55 96 18 05/13/17 12:41 97.8 84 18 190/94 (126) 98 05/14/17 05/14/17 05/14/17 07:00 15:00 23:00 Intake Total 1183 ml Output Total 800 ml Balance 383 ml Result Diagram: 05/14/17 0648 05/14/1748 Laboratory Results Laboratory Tests Test 05/13/17 13:00 05/13/17 13:50 05/13/17 17:30 05/14/17 06:48 White Blood Count 24.0 TH/MM3 21.2 TH/MM3 Red Blood Count 5.64 MIL/MM3 4.73 MIL/MM3 Hemoglobin 14.6 GM/DL 12.3 GM/DL Hematocrit 45.7 % 38.2 % Mean Corpuscular Volume 81.1 FL 80.8 FL Mean Corpuscular Hemoglobin 25.8 PG 26.1 PG Mean Corpuscular Hemoglobin Concent 31.9 % 32.3 % Red Cell Distribution Width 16.9 % 16.5 % Platelet Count 213 TH/MM3 140 TH/MM3 Mean Platelet Volume 8.0 FL 8.1 FL Neutrophils (%) (Auto) 90.9 % 88.1 % Lymphocytes (%) (Auto) 3.8 % 3.8 % Monocytes (%) (Auto) 5.2 % 7.9 % Eosinophils (%) (Auto) 0.0 % 0.1 % Basophils (%) (Auto) 0.1 % 0.1 % Neutrophils # (Auto) 21.8 TH/MM3 18.7 TH/MM3 Lymphocytes # (Auto) 0.9 TH/MM3 0.8 TH/MM3 Monocytes # (Auto) 1.2 TH/MM3 1.7 TH/MM3 Eosinophils # (Auto) 0.0 TH/MM3 0.0 TH/MM3 Basophils # (Auto) 0.0 TH/MM3 0.0 TH/MM3 CBC Comment AUTO DIFF AUTO DIFF Differential Total Cells Counted 100 Neutrophils % (Manual) 82 % Lymphocytes % 9 % Monocytes % 3 % Neutrophils # (Manual) 21.1 TH/MM3 Metamyelocytes 3 % Myelocytes 3 % Differential Comment FINAL DIFF MANUAL AUTO DIFF CONFIRMED Platelet Estimate NORMAL LOW Platelet Morphology Comment NORMAL NORMAL Red Cell Morphology Comment NORMAL Blood Urea Nitrogen 28 MG/DL 24 MG/DL Creatinine 0.97 MG/DL 0.64 MG/DL Random Glucose 144 MG/DL 97 MG/DL Total Protein 6.4 GM/DL 5.0 GM/DL Albumin 3.3 GM/DL 2.5 GM/DL Calcium Level 8.3 MG/DL 7.4 MG/DL Alkaline Phosphatase 114 U/L 91 U/L Aspartate Amino Transf (AST/SGOT) 42 U/L 31 U/L Alanine Aminotransferase (ALT/SGPT) 178 U/L 113 U/L Total Bilirubin 1.2 MG/DL 1.2 MG/DL Sodium Level 140 MEQ/L 139 MEQ/L Potassium Level 4.8 MEQ/L 4.2 MEQ/L Chloride Level 106 MEQ/L 107 MEQ/L Carbon Dioxide Level 21.6 MEQ/L 23.4 MEQ/L Anion Gap 12 MEQ/L 9 MEQ/L Estimat Glomerular Filtration Rate 76 ML/MIN 122 ML/MIN Prothrombin Time 13.8 SEC Prothromb Time International Ratio 1.2 RATIO Activated Partial Thromboplast Time 23.1 SEC Urine Color YELLOW Urine Turbidity CLEAR Urine pH 6.0 Urine Specific Manson 1.024 Urine Protein TRACE mg/dL Urine Glucose (UA) TRACE mg/dL Urine Ketones TRACE mg/dL Urine Occult Blood NEG Urine Nitrite NEG Urine Bilirubin NEG Urine Urobilinogen LESS THAN 2.0 MG/DL Urine Leukocyte Esterase NEG Urine RBC 1 /hpf Urine WBC 2 /hpf Urine Mucus FEW /lpf Microscopic Urinalysis Comment CULT NOT INDICATED Phosphorus Level 1.8 MG/DL Magnesium Level 2.2 MG/DL Protein Corrected Calcium 8.6 MG/DL Free Thyroxine 1.12 NG/DL Thyroid Stimulating Hormone 3rd Gen 0.168 uIU/ML Administered Medications Medications (Trade) Dose Ordered Sig/Theron Route PRN Reason Start Time Stop Time Status Last Admin Dose Admin Atenolol (Tenormin) 25 mg DAILY PO 05/14/17 09:00 05/14/17 09:27 Cholecalciferol (Vitamin D3) 5,000 units DAILY PO 05/14/17 09:00 05/14/17 09:27 Lactulose (Lactulose Liq) 30 ml DAILY PO 05/14/17 09:00 05/14/17 09:33 Lisinopril (Prinivil) 20 mg DAILY PO 05/14/17 09:00 05/14/17 09:27 Morphine Sulfate (Oramorph Sr) 30 mg Q8H PO 05/13/17 18:00 05/14/17 09:28 Pantoprazole Sodium (Protonix) 20 mg DAILY PO 05/14/17 09:00 05/14/17 09:27 Senna/Docusate Sodium (Hilaria-Colace) 1 tab BID PO 05/13/17 21:00 05/14/17 09:27 Sodium Chloride 1,000 ml @ 100 mls/hr Q10H IV 05/13/17 18:00 05/14/17 06:50 Enoxaparin Sodium (Lovenox Inj) 40 mg Q24H SQ 05/13/17 20:00 05/13/17 20:00 Hydromorphone HCl (Dilaudid Pf Inj) 1 mg Q3H PRN IV PUSH Pain 3-5; if unable to take PO 05/13/17 17:00 05/14/17 05:52 Hydromorphone HCl (Dilaudid Pf Inj) 2 mg Q3H PRN IV PUSH Pain 6-10;if unable to take PO 05/13/17 17:00 05/13/17 18:35 Objective Remarks GENERAL: Elderly male supine in bed, somnolent. SKIN: Warm and dry. HEAD: Normocephalic. EYES: No injection or drainage. NECK: Supple, trachea midline. CARDIOVASCULAR: Regular rate and rhythm RESPIRATORY: Breath sounds equal bilaterally. No accessory muscle use. GASTROINTESTINAL: Abdomen soft, non-tender, nondistended. EXTREMITIES: No cyanosis NEUROLOGICAL: awake but lethargic. Assessment/Plan Problem List: (1) Uncontrolled pain ICD Codes: R52 - Pain, unspecified Plan: --on Oramorph 30mg PO q 8 hours with PRN Dilaudid for breakthrough pain --also on Decadron --Back pain related to the bony mets to his L and S spine and pelvis. 05/05--> underwent simulation for palliative RT to the lumbar spine as well as the symptomatic pelvic lesions. --should have started XRT 05/09 or 05/09 (2) Lung cancer metastatic to bone ICD Codes: C34.90 - Malignant neoplasm of unspecified part of unspecified bronchus or lung; C79.51 - Secondary malignant neoplasm of bone Plan: --treatment outpatient per Dr. Mayo --Newly diagnosed adenocarcinoma of lung primary (3) Constipation ICD Codes: K59.00 - Constipation, unspecified Plan: --on hilaria-colace BID + daily Lactulose. --PRN MoM Plan 1. stop Dilaudid 2mg. stop ativan d/t lethargy, somnolence 2. continue Oramorph 30mg PO q 8 hours. Start MSIR 15mg PO for breakthrough pain. Continue Dilaudid 1mg IV for severe pain only. 3. increase Lactulose to BID 4. CT ab/pelvis Attending Statement The exam, history, and the medical decision-making described in the above note were completed with the assistance of the mid-level provider. I reviewed and agree with the findings presented. I attest that I had a [id number] encounter with the patient on the same day, and personally performed and documented my assessment and findings in the medical record. Newly diagnosed NSCLC Has bony mets received XRT to spine continue pain control continue Decadron IV Dilaudid dose decreased CT abdomen pending If Back pain continues to worsen will consider MRI lumbar spine Leukocytosis is reactive due to steroids supportive care o/n events reviewed d/w rn Problem Qualifiers (1) Constipation: Qualified Codes: K59.03 - Drug induced constipation Maeve Grimaldo May 14, 2017 10:21 Santiago Bryant MD May 14, 2017 11:42
[2017-05-14 10:44] LABS: HEMOGLOBIN A1a 1.6 %; HEMOGLOBIN A1b 2.3 %; HEMOGLOBIN Ao 83.1 %; HEMOGLOBIN LA1C 2.1 %
[2017-05-14] MEDS ORDERED: HYDROmorphone HCL PF 1 MG/ML VIAL IV PUSH PRN (10:45)
[2017-05-14] MEDS: MORPHINE SULFATE 15 MG TAB PO PRN ×2 (12:11→16:22)
--- NOTE | 2017-05-14 12:37 | MB ---
cc: OLIVER MAYO MD EISENHUT, JOSHUA DATE OF CONSULTATION 05/13/2017 DATE OF 1945 [address] Krishna Arteaga Consult requested by the emergency department. 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 However, a GI primary has not yet been ruled out. Concern for possible GI primary has been raised due to the equivocal immunohistochemical studies on staining pattern of the tumor. MUTATIONAL ANALYSIS EGFR mutation negative, ALK/EML-4: Negative, ROS-1 mutation negative, RET mutation: Negative. PDL-1 stainin%. CURRENT TREATMENT The patient is on palliative radiation to the metastatic disease which has been identified in his pelvis and lower lumbar vertebral body, he is status post 3/10 radiation fractions. He is also receiving radiation to the biopsy-proven metastatic lesion involving his right deltoid. The patient has yet to receive palliative systemic therapy. CHIEF COMPLAINT Intractable and severe lower back pain which began suddenly on the night of 05/12/2017. This led to the emergency department evaluation on 05/13/2017. HISTORY OF PRESENT ILLNESS Mr. Abbott is a 72-year-old male who is known to me from previous inpatient and outpatient visits. Mr. Abbott initially presented to [facility] in early April of 2017 with complaints of severe back pain and difficulty balancing. Imaging studies of his spine indicated metastatic deposits involving the lumbar vertebral body and in addition to that he was found to have metastatic disease involving his pelvis. Further imaging studies including CT of the chest revealed a right lung mass measuring approximately 2.5 cm as well as a mass involving the right deltoid muscle. He did undergo CT of the abdomen but this was not a contrast scan and there was no definite evidence of a primary site in the abdomen, however, he did have enlargement of bilateral adrenal glands. The patient subsequently underwent outpatient lung biopsy which was performed at [facility] which confirmed the presence of adenocarcinoma with mucin producing features. He subsequently underwent CT guided biopsy of the right deltoid mass which also revealed a non-small cell carcinoma with mucin producing features, immunohistochemical staining studies were ___ for primary lung malignancy. We had been considering the most appropriate systemic therapeutic options while awaiting the results of the above-noted mutational analysis to identify a possible actionable mutation. The patient presented to [facility] Emergency Department upon my recommendation yesterday evening for evaluation of severe pain. Per the patient's the pain began on the evening of 05/12 when he was trying to get up from the toilet seat. The patient denies having any numbness or weakness of his lower extremities, he also denied having saddle numbness. In the emergency department due to this severe distress, anxiety and pain he was given intravenous hydromorphone and intravenous Ativan and at the time of this interview he was mostly asleep. I talked mostly to his son and at bedside. His daughter later joined the discussion. PAST MEDICAL HISTORY 1. 60+ pack-year history of tobacco consumption. 2. Peripheral arterial disease. 3. 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 4. Chronic left bundle branch block. 5. Hypothyroidism. 6. Metastatic adenocarcinoma with mucin producing features. PAST SURGICAL HISTORY 1. Complete thyroidectomy in 1985 for thyroid carcinoma. 2. Lower extremity arterial stent placement. 3. Cholecystectomy and appendectomy about 40 years ago. 4. 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 5. CT guided biopsy of lung mass. 6. CT guided biopsy of right deltoid mass. FAMILY HISTORY Father of metastatic colon carcinoma, brother had an intestinal cancer and the patient suspects this was a colon cancer. Mother of advanced age. ALLERGIES ALLERGIES TO PENICILLIN. 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 He did previously serve in the [place] but served during peace time in [place]. As mentioned above, he does a 60 pack-year history of smoking and was smoking up until very recently. MEDICATIONS Current inpatient medications: 1. Normal saline 100 cc/hour. 2. Tylenol 650 milligrams p.o. q. 4 ounces as needed for temperature over 100.4 degrees Fahrenheit. 3. Atenolol 225 milligrams p.o. daily. 4. Dulcolax 10 milligrams per rectal as needed for severe constipation. 5. Vitamin D3 5000 units p.o. daily. 1. Dexamethasone 400 milligrams p.o. q. 4 hours. 2. Senna Colace 1 tablet p.o. b.i.d. 3. Lovenox 40 subcu 24 hours. 4. Dilaudid 2 milligrams p.o. q. 4 hours as needed for pain scale 5-10. 5. Dilaudid 1 milligram IV q. 3 hours as needed for pain, 3/5 and Dilaudid 2 milligrams IV q. 3 hours for pain 6-10. 6. Levothyroxine 125 micrograms daily. 7. Lactulose 30 ml p.o. daily. 8. Lisinopril 20 milligrams once daily. 9. Magnesium sulfate 30 micrograms p.o. q. 12. 10. Morphine sulfate long-acting 30 micrograms p.o. q.8 hours. 11. Naloxone 0.4 milligrams IV as needed. 12. Ondansetron 4 milligrams IV times one. 13. Pantoprazole 20 milligrams p.o. daily. 14. Oxycodone 5-10 milligrams every 4 hours depending on pain scale. 15. Temazepam 15 milligrams p.o. q. h.s. REVIEW OF SYSTEMS Unable to obtain review of systems as the patient was essentially sedated when I saw him. However, per his the patient had experienced severe pain which started approximately 24 hours ago. It was focused in his lower back. It was focused in the midline. He denies fevers or chills, he denied having difficulty swallowing or loss of appetite. The patient, however, did have some nausea and hiccups which the describes as almost persistent. The patient had also been reporting abdominal pain but denies hematochezia or melena. Pertinent positives were identified. PHYSICAL EXAMINATION VITAL SIGNS: Temperature 96.4 degrees Fahrenheit, heart rate ranging between 100 and 107 beats per minute, respiratory rate ranging between 18 and 20 breaths per minute, blood pressure 145/81, O2 sat 92% on room air. GENERAL APPEARANCE: Mr. Abbott is an elderly male, he is laying in bed, he is sedated, he mumbles some responses and at times during the interview did wake-up and interacted briefly with me. His and son are at bedside. HEENT: Head is atraumatic, normocephalic, conjunctive are not pale, sclerae are nonicteric, EOMI, PERRLA, oral exam no pharyngeal erythema. NECK: Neck exam no palpable cervical or supraclavicular lymphadenopathy. RESPIRATORY EXAM: Good air movement bilaterally with prolonged expiratory phase. CARDIOVASCULAR: Tachycardiac, regular, S1-S2 without obvious murmurs, rubs or gallops. ABDOMINAL EXAM: Protuberant, soft without obvious organ enlargement, no obvious tenderness noted. LOWER EXTREMITIES: Good muscle mass and tone, he is moving both limbs spontaneously and has adequate motor strength. SKIN: He has chronic smoking related changes noted. I would also like to add there is an approximate 5 cm smooth surface mass involving the right deltoid muscle. ASSESSMENT Mr. Abbott is a 72-year-old male who was recently diagnosed with metastatic mucin producing adenocarcinoma. The primary site at this point is thought to be the lung. However, based on immunohistochemical studies performed on two different tumor specimen there is some suspicion that a possible occult primary in the digestive tract may be present. The patient has been scheduled for an outpatient PET CT scan but this has yet to be done. Mr. Abbott presents to the hospital with complaints of severe and sudden onset of back pain which was different from the pain he had been experiencing over the past several weeks. As far as managing his disease he is presently on palliative radiation as coordinated by Dr. Daniel Husain, the areas being targeted are his metastatic disease volume in his lower lumbar spine as well as in his pelvis. Dr. Husain had informed me that the right deltoid muscle metastatic deposit will also be included in the palliative radiation field at some point in the future. Thus far because we had suspected primary lung malignancy given this individual's initial presentation and extensive history of tobaccoism I did perform analysis for the EGFR, ALK, ROS, RET as well as staining for PBL1. All of these were negative, i.e., the patient has no actionable mutation and he is not a candidate for first-line immunotherapy. PLAN/RECOMMENDATIONS 1. Metastatic mucin producing adenocarcinoma of suspected lung primary: At this point I would like to complete his staging with a contrast enhanced CT scan of the abdomen and pelvis. This should shed some light on possible intra-abdominal primary and also will image his lumbar and sacral spine as well as pelvis in more detail to help identify possible cause of acute worsening in his pain. 2. Pain control: He is presently on both long and short acting formulations of opioids. I will consult our palliative care team to help further streamline his pain control. 3. Anxiety: This has been a major issue for Mr. Abbott and I think it would be reasonable to continue a low-dose of benzodiazepine while he is in the hospital so as to manage his anxiety. DISPOSITION 1. I did have a long discussion with his and his son as well as daughter. They are all aware as am I of the patient's preference regarding management of metastatic malignancy. Mr. Abbott has made it clear that he will not accept palliative systemic chemotherapy, he was hopeful that he would be a candidate for one of the more novel targeted therapies or possibly even immunotherapy should his disease had been found to harbor any of those actionable mutations. Unfortunately, whether he has metastatic lung carcinoma or whether we find an occult GI primary his treatment will involve some sort of cytotoxic systemic chemotherapy which I am aware the patient will not accept. It seems that best supportive care may be Mr. Abobtt's preferred management approach. 2. Bony metastatic disease: He did receive pamidronate 90 milligrams IV one week ago. Oliver Mayo MD ZL/EO /8:32 AM /11:49 AM
--- NOTE | 2017-05-14 15:26 | HHI.PR ---
Subjective Remarks Nursing does affirm that the patient has been somewhat more somnolent with the IV pain medications. Otherwise no acute deterioration since last night. says that the patient is hesitant about getting imaging because this may involve him shifting his body around but they understand that ultimately this is inevitable. Objective Vital Signs Date Time Temp Pulse Resp B/P (MAP) Pulse Ox O2 Delivery O2 Flow Rate FiO2 05/14/17 12:57 94 Nasal Cannula 2.00 05/14/17 12:00 98.4 101 18 137/64 (88) 95 05/14/17 08:00 99.0 100 14 123/61 (81) 95 05/14/17 06:49 20 05/14/17 04:00 96.4 103 18 145/81 (102) 92 05/14/17 00:00 97.4 107 19 177/87 (117) 94 05/13/17 22:00 20 05/13/17 20:00 97.7 114 18 159/93 (115) 92 05/13/17 17:45 97.3 108 18 209/94 (132) 94 05/13/17 17:31 97.8 78 16 155/81 (105) 98 05/13/17 16:08 97.8 94 17 150/72 (98) 98 Room Air I/O 05/13/17 05/13/17 05/13/17 05/14/17 05/14/17 05/14/17 07:00 15:00 23:00 07:00 15:00 23:00 Intake Total 1000 ml 240 ml 1183 ml Output Total 800 ml Balance 1000 ml 240 ml 383 ml Intake Oral 240 ml 240 ml IV Total 1000 ml 943 ml Output Urine Total 800 ml Result Diagram: 05/14/17 0648 05/14/17 0648 Objective Remarks Lying in bed, somnolent Will respond when calling his name The abdomen is soft, nondistended is able to actively flex both knees and dorsiflex and plantarflex both ankles A/P Assessment and Plan 72-year-old white male admitted for intractable back pain secondary to metastatic lung cancer. Back pain - Oncology managing, on IV pain meds, continue to monitor respiratory status, explained to the that the risk for aspiration increases more pain medication that we give him secondary to somnolence Constipation - we'll continue on good bowel regimen Hypothyroidism - continue his levothyroxine Hypertension -continue on his lisinopril and his atenolol Leukocytosis due to steroids Physical therapy and occupational therapy Code Status FULL Code Sabino Conklin MD May 14, 2017 15:26
[2017-05-14] MEDS ORDERED: IOHEXOL 350 MG/ML 10 ML VIAL (for RAD DIAG) IVCONTRAST ONE (16:54)
--- NOTE | 2017-05-14 17:14 | RADRPT ---
EXAM DATE/TIME: 05/14/2017 16:43 [facility] COMPARISON: CT ABDOMEN & PELVIS W/O CONTRAST, April 14, 2017, 23:06. INDICATIONS : Abdomen pain; back pain. IV CONTRAST: 75 cc Omnipaque 350 (iohexol) IV ORAL CONTRAST: No oral contrast ingested. RADIATION DOSE: 16.30 CTDIvol (mGy) MEDICAL HISTORY : Cardiovascular disease. Hypertension. Carcinoma, thyroid. SURGICAL HISTORY : Appendectomy. Cholecystectomy. ENCOUNTER: Initial ACUITY: 1 day PAIN SCALE: 5/10 LOCATION: Bilateral abdomen. TECHNIQUE: Volumetric scanning of the abdomen and pelvis was performed. Using automated exposure control and ad justment of the mA and/or kV according to patient size, radiation dose was kept as low as reasonably achievable to obtain optimal diagnostic quality images. DICOM format image data is available electro nically for review and comparison. FINDINGS: LOWER LUNGS: Bibasilar, right greater than left, lower lobe consolidation with trace right pleural effusion. LIVER: There are multiple bilateral hepatic masses with the largest in segment 6 measuring 2.4 x 2.4 cm. Mil d left hepatic ductal dilatation likely due to reservoir effect from cholecystectomy. SPLEEN: Normal size without lesion. PANCREAS: Within normal limits. KIDNEYS: Multiple bilateral renal cysts ranging from subcentimeter in size to 6.7 cm in the posterior mid left kidney. Kidneys demonstrate symmetrical enhancement without evidence for hydronephrosis. ADRENAL GLANDS: Redemonstration of 10 x 17 mm mass in the lateral limb of the right adrenal gland and 1.6 x 1.6 cm in ferior lateral limb of the left adrenal gland. VASCULAR: There is no aortic aneurysm. Bilateral kissing iliac stents in place. BOWEL/MESENTERY: Mild sigmoid diverticulosis without inflammatory change to suggest diverticulitis. Bowel otherwise ap pears grossly unremarkable. No evidence for obstruction. ABDOMINAL WALL: Within normal limits. RETROPERITONEUM: There is no lymphadenopathy. BLADDER: No wall thickening or mass. REPRODUCTIVE: Prostate is nonspecifically enlarged. INGUINAL: Small fat-containing bilateral internal hernias. MUSCULOSKELETAL: Focal 1.8 x 1.9 cm apparent lytic defect in the superior posterior endplate of the L2 vertebral body with erosion of the posterior cortex. There is also focal lytic defect involving the anterior ilium m easuring approximately 1.5 x 1.3 cm on the right. There is a lytic mass involving the right femoral n [place] measuring 2.9 x 1.5 cm. CONCLUSION: 1. Findings consistent with diffuse hepatic and osseous metastatic disease. 2. There is a destructive focal 1.8 x 1.9 cm mass in the superior posterior endplate of the L2 verteb ral body with posterior cortical erosion. This may or account for patient's back pain. 3. There is also a 2.9 cm destructive mass involving the anterior right femoral neck which may predis pose to pathologic fracture. 4. Bilateral adrenal masses with imaging features as previously described. 5. Stable axillary findings, as above. Juan Beebe MD on May 14, 2017 at 16:58 Board Certified Radiologist. This report was verified electronically.
[2017-05-14] MEDS: HYDROmorphone HCL PF 1 MG/ML VIAL IV PUSH SCH ×2 (17:58→21:33)
[2017-05-14] MEDS: LACTULOSE SYRUP 20 GM/30 ML CUP PO SCH (21:00)
[2017-05-14] MEDS: ENOXAPARIN SODIUM 40 MG/0.4 ML SYRINGE SQ SCH (21:31)
[2017-05-14] MEDS: SODIUM CHLORIDE 0.9% FLUSH 10 ML FLUSH IV FLUSH SCH (21:41)
[2017-05-15] VITALS (9 sets, daily range): BP systolic 107–141; BP diastolic 55–84; PULSE 72–95; RESP 18–19; TEMP 96.7–98.1; O2SAT 95–98
[2017-05-15] MEDS: DEXAMETHASONE 4 MG TAB PO SCH ×4 (00:32→17:34)
[2017-05-15] MEDS: MORPHINE SULFATE 30 MG CONTROLLED RELEASE TAB PO SCH ×3 (00:33→17:34)
[2017-05-15] MEDS: HYDROmorphone HCL PF 1 MG/ML VIAL IV PUSH SCH ×4 (00:33→06:08)
[2017-05-15] MEDS: SODIUM CHLOR 0.9% 1000 ML INJ 1,000 ML IV SCH ×3 (03:00→20:00)
[2017-05-15] MEDS: LEVOTHYROXINE SODIUM 125 MCG TAB PO SCH (06:08)
[2017-05-15] MEDS: ATENOLOL 25 MG TAB PO SCH (09:00)
[2017-05-15] MEDS: LACTULOSE SYRUP 20 GM/30 ML CUP PO SCH ×3 (09:00→21:00)
[2017-05-15] MEDS: SODIUM CHLORIDE 0.9% FLUSH 10 ML FLUSH IV FLUSH SCH ×2 (09:00→21:17)
[2017-05-15] MEDS: LISINOPRIL 20 MG TAB PO SCH (09:07)
[2017-05-15] MEDS: DOCUSATE SODIUM 50 MG/SENNA 8.6 MG TAB PO SCH ×2 (09:07→21:16)
[2017-05-15] MEDS: PANTOPRAZOLE SOD 20 MG DELAYED RELEASE TAB PO SCH (09:08)
[2017-05-15] MEDS: CHOLECALCIFEROL (VIT D3) 5000 UNIT CAP PO SCH (09:08)
--- NOTE | 2017-05-15 09:57 | PD.ONC.PN ---
Subjective Subjective Remarks Afebrile overnight. continuing to have severe low back pain. afraid to get out of bed because of low back pain. Although the pain medications have been making him quite somnolent, he reports limited improvement in the pain. Afraid to take the lactulose since he has difficulty getting out of bed. Objective Data Date Time Temp Pulse Resp B/P (MAP) Pulse Ox O2 Delivery O2 Flow Rate FiO2 05/15/17 08:00 97.4 89 18 130/84 (99) 95 05/15/17 07:34 96 Nasal Cannula 2.00 05/15/17 06:41 19 05/15/17 04:00 96.8 82 19 141/75 (97) 97 05/15/17 02:00 19 05/15/17 00:00 97.6 95 18 137/77 (97) 96 05/14/17 20:00 96.3 83 19 124/70 (88) 96 05/14/17 17:20 94 Nasal Cannula 2.00 05/14/17 16:00 99.0 83 14 140/66 (90) 95 05/14/17 12:57 94 Nasal Cannula 2.00 05/14/17 12:00 98.4 101 18 137/64 (88) 95 05/15/17 05/15/17 05/15/17 07:00 15:00 23:00 Intake Total 2170 ml Output Total 350 ml Balance 1820 ml Result Diagram: 05/14/17 0648 05/14/17 0648 Imaging Studies Last 24 hours Impressions Abdomen/Pelvis CT 05/14/17 1526 Signed Impressions: Service Date/Time: Sunday, May 14, 2017 16:43 - CONCLUSION: 1. Findings consistent with diffuse hepatic and osseous metastatic disease. 2. There is a destructive focal 1.8 x 1.9 cm mass in the superior posterior endplate of the L2 vertebral body with posterior cortical erosion. This may or account for patient's back pain. 3. There is also a 2.9 cm destructive mass involving the anterior right femoral neck which may predispose to pathologic fracture. 4. Bilateral adrenal masses with imaging features as previously described. 5. Stable axillary findings, as above. Juan Beebe MD Administered Medications Medications (Trade) Dose Ordered Sig/Theron Route PRN Reason Start Time Stop Time Status Last Admin Dose Admin Atenolol (Tenormin) 25 mg DAILY PO 05/14/17 09:00 05/15/17 09:00 Cholecalciferol (Vitamin D3) 5,000 units DAILY PO 05/14/17 09:00 05/15/17 09:08 Dexamethasone (Decadron) 4 mg Q6HR PO 05/13/17 18:00 05/15/17 06:08 Levothyroxine Sodium (Synthroid) 125 mcg DAILY@0600 PO 05/14/17 06:00 05/15/17 06:08 Lisinopril (Prinivil) 20 mg DAILY PO 05/14/17 09:00 05/15/17 09:07 Morphine Sulfate (Oramorph Sr) 30 mg Q8H PO 05/13/17 18:00 05/15/17 00:33 Pantoprazole Sodium (Protonix) 20 mg DAILY PO 05/14/17 09:00 05/15/17 09:08 Senna/Docusate Sodium (Hilaria-Colace) 1 tab BID PO 05/13/17 21:00 05/15/17 09:07 Sodium Chloride 1,000 ml @ 100 mls/hr Q10H IV 05/13/17 18:00 05/15/17 03:00 Sodium Chloride (NS Flush) 2 ml BID IV FLUSH 05/13/17 21:00 05/14/17 21:41 Enoxaparin Sodium (Lovenox Inj) 40 mg Q24H SQ 05/13/17 20:00 05/14/17 21:31 Morphine Sulfate (Msir) 15 mg Q4H PRN PO pain1-8 05/14/17 10:45 05/14/17 16:22 Hydromorphone HCl (Dilaudid Pf Inj) 1 mg Q2HR IV PUSH 05/14/17 18:00 05/15/17 06:08 Objective Remarks GENERAL: Elderly male lying in bed, sleeping on approach SKIN: Warm and dry. HEAD: Normocephalic. EYES: No injection or drainage. NECK: Supple, trachea midline. CARDIOVASCULAR: Regular rate and rhythm RESPIRATORY: Breath sounds equal bilaterally. No accessory muscle use. GASTROINTESTINAL: Abdomen soft, non-tender, nondistended. EXTREMITIES: No cyanosis NEUROLOGICAL: sleeping on approach. easily awakened. falls back asleep quickly. slurred speech. follows commands. Assessment/Plan Problem List: (1) Uncontrolled pain ICD Codes: R52 - Pain, unspecified Plan: --on Oramorph 30mg PO q 8 hours with PRN MSIR nad Dilaudid for breakthrough pain --also on Decadron --Back pain related to the bony mets to his L and S spine and pelvis. 05/05--> underwent simulation for palliative RT to the lumbar spine as well as the symptomatic pelvic lesions. --started XRT 05/08 (2) Lung cancer metastatic to bone ICD Codes: C34.90 - Malignant neoplasm of unspecified part of unspecified bronchus or lung; C79.51 - Secondary malignant neoplasm of bone Plan: --treatment outpatient per Dr. Mayo --Newly diagnosed adenocarcinoma of lung primary (3) Constipation ICD Codes: K59.00 - Constipation, unspecified Plan: --on hilaria-colace BID + daily Lactulose. --PRN MoM Assessment 72y/o male with NSCLC with mets to bone and liver, admitted with intractable back pain. Plan 1. continue Oramorph 30mg PO q 8 hours. 2. continue MSIR /Dilaudid for breakthrough pain. 3. we may need to obtain repeat MRI of lumbar spine; however, the patient is currently refusing any further MRI d/t severe pain with transferring. we will continue pain management today and d/w Dr. Mayo tomorrow. Attending Statement The exam, history, and the medical decision-making described in the above note were completed with the assistance of the mid-level provider. I reviewed and agree with the findings presented. I attest that I had a [id number] encounter with the patient on the same day, and personally performed and documented my assessment and findings in the medical record. Dilaudid 1 mg every 2 hrs prn MS Contin 30 PO q8 hrs Patient was very upset that he had to go for the CT scan since bed transfers exacerbated his pain he states that he prefers to not have any interventions such as scans/XRt done at this time and want us to focus on pain control with meds Will ask palliative care to see patient extensive amount of time spent with patient and family- approximately 30 minutes --at the end of conversation --does want to do XRT d/w rn o/n events reviewed CT scan reviewed-- has diffused mets in liver and bone, descriptive spinal lesions L2 and femoral neck right side Dr. Mayo will return tomorrow Problem Qualifiers (1) Constipation: Qualified Codes: K59.03 - Drug induced constipation Maeve Grimaldo May 15, 2017 09:57 Santiago Bryant MD May 15, 2017 11:38
--- NOTE | 2017-05-15 13:42 | HHI.PR ---
Subjective Remarks Nursing does report that patient was still somnolent today from pain medication. Otherwise no acute deterioration since last night. Patient is concerned about not having a bowel movement, feels that he is constipated beyond normal for him. Objective Vital Signs Date Time Temp Pulse Resp B/P (MAP) Pulse Ox O2 Delivery O2 Flow Rate FiO2 05/15/17 13:15 97 05/15/17 12:00 98.1 72 18 113/65 (81) 98 05/15/17 08:00 97.4 89 18 130/84 (99) 95 05/15/17 07:34 96 Nasal Cannula 2.00 05/15/17 06:41 19 05/15/17 04:00 96.8 82 19 141/75 (97) 97 05/15/17 02:00 19 05/15/17 00:00 97.6 95 18 137/77 (97) 96 05/14/17 20:00 96.3 83 19 124/70 (88) 96 05/14/17 17:20 94 Nasal Cannula 2.00 05/14/17 16:00 99.0 83 14 140/66 (90) 95 I/O 05/14/17 05/14/17 05/14/17 05/15/17 05/15/17 05/15/17 07:00 15:00 23:00 07:00 15:00 23:00 Intake Total 1183 ml 540 ml 2170 ml Output Total 800 ml 1075 ml 350 ml Balance 383 ml -535 ml 1820 ml Intake Oral 240 ml 540 ml IV Total 943 ml 2170 ml Output Urine Total 800 ml 1075 ml 350 ml # Bowel Movements 0 Result Diagram: 05/14/17 0648 05/14/17 0648 Imaging Last Impressions Abdomen/Pelvis CT 05/14/17 1526 Signed Impressions: Service Date/Time: Sunday, May 14, 2017 16:43 - CONCLUSION: 1. Findings consistent with diffuse hepatic and osseous metastatic disease. 2. There is a destructive focal 1.8 x 1.9 cm mass in the superior posterior endplate of the L2 vertebral body with posterior cortical erosion. This may or account for patient's back pain. 3. There is also a 2.9 cm destructive mass involving the anterior right femoral neck which may predispose to pathologic fracture. 4. Bilateral adrenal masses with imaging features as previously described. 5. Stable axillary findings, as above. Juan Bozorgmanesh, MD Objective Remarks Is awake alert, oriented Abdomen is soft, non-distended, nontender A/P Assessment and Plan 72-year-old white male admitted for intractable back pain secondary to metastatic lung cancer. intractable Back pain - 2/2 mets from lung cancer - no improvement per pt, Oncology managing, modifying pain med regimen, continue to monitor respiratory status, metastatic dx - 2/2 lung cancer, lesions noted over liver as well Constipation - pt refusing trial of relistor, wants to continue w/ stool softeners for now Hypothyroidism - continue his levothyroxine Hypertension -continue on his lisinopril and his atenolol Lovenox Sabnio Conklin MD May 15, 2017 13:42
[2017-05-15] MEDS: HYDROmorphone HCL PF 1 MG/ML VIAL IV PUSH PRN (19:20)
[2017-05-15] MEDS: SIMETHICONE 125 MG CHEWABLE TAB PO PRN (21:16)
[2017-05-15] MEDS: ENOXAPARIN SODIUM 40 MG/0.4 ML SYRINGE SQ SCH (21:17)
[2017-05-16] VITALS (7 sets, daily range): BP systolic 114–135; BP diastolic 55–88; PULSE 77–81; RESP 17–20; TEMP 95.1–97.9; O2SAT 96–99
[2017-05-16] MEDS: DEXAMETHASONE 4 MG TAB PO SCH ×4 (00:13→17:15)
[2017-05-16] MEDS: SODIUM CHLOR 0.9% 1000 ML INJ 1,000 ML IV SCH ×3 (00:15→17:31)
[2017-05-16] MEDS: MORPHINE SULFATE 30 MG CONTROLLED RELEASE TAB PO SCH ×3 (02:15→17:15)
[2017-05-16] MEDS: LEVOTHYROXINE SODIUM 125 MCG TAB PO SCH (06:05)
--- NOTE | 2017-05-16 08:33 | PD.ONC.PN ---
Subjective Subjective Remarks Patient seen and examined, tells me his pain is reasonably well-controlled. His major complaint is that of constipation. He tells me he has not gotten up out of bed and anticipates the pain worsening when he does. He reiterates today his desire to pursue palliative/comfort oriented measures as opposed to systemic palliative chemotherapy. Objective Data Date Time Temp Pulse Resp B/P (MAP) Pulse Ox O2 Delivery O2 Flow Rate FiO2 05/16/17 04:00 97.1 79 18 121/55 (77) 96 05/16/17 00:00 97.3 81 17 117/55 (75) 97 05/15/17 20:00 96.7 82 18 109/55 (73) 95 05/15/17 16:14 96 Nasal Cannula 2.00 05/15/17 16:00 97.0 77 18 107/62 (77) 96 05/15/17 13:15 97 05/15/17 12:00 98.1 72 18 113/65 (81) 98 05/16/17 05/16/17 05/16/17 07:00 15:00 23:00 Intake Total 480 ml Output Total 800 ml Balance -320 ml Result Diagram: 05/14/1748 05/14/17 0648 Administered Medications Medications (Trade) Dose Ordered Sig/Theron Route PRN Reason Start Time Stop Time Status Last Admin Dose Admin Atenolol (Tenormin) 25 mg DAILY PO 05/14/17 09:00 05/15/17 09:00 Cholecalciferol (Vitamin D3) 5,000 units DAILY PO 05/14/17 09:00 05/15/17 09:08 Dexamethasone (Decadron) 4 mg Q6HR PO 05/13/17 18:00 05/16/17 06:05 Levothyroxine Sodium (Synthroid) 125 mcg DAILY@0600 PO 05/14/17 06:00 05/16/17 06:05 Lisinopril (Prinivil) 20 mg DAILY PO 05/14/17 09:00 05/15/17 09:07 Morphine Sulfate (Oramorph Sr) 30 mg Q8H PO 05/13/17 18:00 05/16/17 02:15 Pantoprazole Sodium (Protonix) 20 mg DAILY PO 05/14/17 09:00 05/15/17 09:08 Senna/Docusate Sodium (Bib-Colace) 1 tab BID PO 05/13/17 21:00 05/15/17 21:16 Sodium Chloride 1,000 ml @ 100 mls/hr Q10H IV 05/13/17 18:00 05/16/17 00:15 Sodium Chloride (NS Flush) 2 ml BID IV FLUSH 05/13/17 21:00 05/15/17 21:17 Enoxaparin Sodium (Lovenox Inj) 40 mg Q24H SQ 05/13/17 20:00 05/15/17 21:17 Morphine Sulfate (Msir) 15 mg Q4H PRN PO pain1-8 05/14/17 10:45 05/14/17 16:22 Hydromorphone HCl (Dilaudid Pf Inj) 1 mg Q2HR PRN IV PUSH pain9-10 05/15/17 10:45 05/15/17 19:20 Simethicone (Phazyme Chew) 125 mg Q8H PRN PO GAS RETENTION 05/15/17 18:45 05/15/17 21:16 Objective Remarks GENERAL APPEARANCE: Mr. Abbott is an elderly male, he is laying in bed, he is Awake and alert. HEENT: Head is atraumatic, normocephalic, conjunctive are not pale, sclerae are nonicteric, EOMI, PERRLA, oral exam no pharyngeal erythema. NECK: Neck exam no palpable cervical or supraclavicular lymphadenopathy. RESPIRATORY EXAM: Good air movement bilaterally with prolonged expiratory phase. CARDIOVASCULAR: Tachycardiac, regular, S1-S2 without obvious murmurs, rubs or gallops. ABDOMINAL EXAM: Protuberant, soft without obvious organ enlargement, no obvious tenderness noted. LOWER EXTREMITIES: Good muscle mass and tone, he is moving both limbs spontaneously and has adequate motor strength. SKIN: He has chronic smoking related changes noted. I would also like to add there is an approximate 5 cm smooth surface mass involving the right deltoid muscle. Assessment/Plan Problem List: (1) Uncontrolled pain ICD Codes: R52 - Pain, unspecified Plan: --on Oramorph 30mg PO q 8 hours with PRN MSIR nad Dilaudid for breakthrough pain --also on Decadron --Back pain related to the bony mets to his L and S spine and pelvis. 9/21--> underwent simulation for palliative RT to the lumbar spine as well as the symptomatic pelvic lesions. --started XRT 05/08 (2) Lung cancer metastatic to bone ICD Codes: C34.90 - Malignant neoplasm of unspecified part of unspecified bronchus or lung; C79.51 - Secondary malignant neoplasm of bone Plan: --treatment outpatient per Dr. Mayo --Newly diagnosed adenocarcinoma of lung primary (3) Constipation ICD Codes: K59.00 - Constipation, unspecified Plan: --on bib-colace BID + daily Lactulose. --PRN MoM Assessment 72y/o male with NSCLC with mets to bone and liver, admitted with intractable back pain. Plan 1. Metastatic non-small cell carcinoma with extensive liver bony and soft tissue metastases including metastases to the muscles. Primary site may be lung given the immunohistochemical staining pattern. No actionable mutations identified on extensive analysis, PDL-1: 0% expression. I did offer him palliative systemic chemotherapy to help manage disease-related symptoms and to help prolong survival. He declines palliative systemic chemotherapy and prefers a comfort oriented approach. He has requested hospice. Continue symptom management as this seems to have helped his pain. He is apprehensive about continuing radiation because of the pain he experiences when he transfers in and out of his stretcher to get onto the accelerator. Hospice consult placed. Palliative care consult was also placed. Oncology will follow along with you. Problem Qualifiers (1) Constipation: Qualified Codes: K59.03 - Drug induced constipation Oliver Mayo MD May 16, 2017 08:33
[2017-05-16] MEDS: CHOLECALCIFEROL (VIT D3) 5000 UNIT CAP PO SCH (08:48)
[2017-05-16] MEDS: LISINOPRIL 20 MG TAB PO SCH (08:48)
[2017-05-16] MEDS: PANTOPRAZOLE SOD 20 MG DELAYED RELEASE TAB PO SCH (08:48)
[2017-05-16] MEDS: DOCUSATE SODIUM 50 MG/SENNA 8.6 MG TAB PO SCH ×2 (08:48→20:19)
[2017-05-16] MEDS: SODIUM CHLORIDE 0.9% FLUSH 10 ML FLUSH IV FLUSH SCH ×2 (08:49→20:25)
[2017-05-16] MEDS: LACTULOSE SYRUP 20 GM/30 ML CUP PO SCH ×2 (08:49→20:19)
[2017-05-16] MEDS: ATENOLOL 25 MG TAB PO SCH (09:00)
--- NOTE | 2017-05-16 14:12 | PD.CONS ---
Consult Service Palliative Care Consult Requested By Dr. Chery Mayo MD. Primary Care Physician Krishna Arteaga M.D. Reason for Consultation a. To assist with evaluation and management of symptoms including: Pain and anxiety. b. To assist medical decision maker(s) with: better understanding of current medical conditions; weighing benefits/burdens of medical treatment options; making medical treatment decisions. . (Dilcia Martino) HPI History of Present Illness Mr. Abbott is a 72-year-old male with a medical history significant for metastatic adenocarcinoma of the long, CAD status post stents x3, hypertension, PAD and skin cancer. Patient arrived to ED on 05/13/17 secondary to intractable back pain. Patient was admitted for further management. Oncology, Dr. Mayo consulted on 05/13/17 for evaluation. Patient with a history of metastatic lung cancer recently diagnosed on April 2017, concerns for possible GI primary. Patient currently undergoing palliative radiation to lumbar spine and pelvis, started on 05/09/17. Has received a total of 3/10 treatments. Patient not a candidate for immunotherapy, patient has declined systemic chemotherapy given terminal condition and concerns of increased symptom burden. Palliative care has been consulted for further clarifications of goals of care given the above. Abdomen/pelvis CT 05/14/17 revealing diffuse hepatic and osseous metastatic disease. 1.8 x 1.9 cm mass in the superior posterior endplate of the L2, 2.9 cm mass involving the anterior right femoral neck, bilateral adrenal masses. Most recent laboratory workup 05/14/17 revealing leukocytosis, WBC 21.2, Hgb 12.3 , platelet count 140. BUN/creatinine 24/0.64. Liver enzymes elevated; total bilirubin 1.2, AST 31, ALT 113, alkaline phosphatase 91. Albumin 2.5. Patient seen in oncology floor, he was resting in bed in no acute distress. Keyona and son Joby at bedside. Patient afebrile, stable hemodynamically. O2 via nasal cannula at 2 L alternating with room air. Oxygen saturation in the made to high 90s. Patient alert and oriented x self, place and situation. Verbal, able to communicate needs. Patient with a good insight into his medical condition/progressive metastatic disease. Discussed that his condition is terminal and not curable. Reviewed treatment options as previously discussed with oncology. Patient reiterated not wishing for systemic chemotherapy, patient not a candidate for immunotherapy. Discussed CPR, intubation and mechanical ventilation given terminal condition. Patient electing no code, DNR/DNI. Discussed continuation of current management short of no code to include palliative radiation to lumbar spine and pelvis vs transition to comfort-directed care with hospice. Reviewed in great detail hospice philosophy and benefits. Keyona and son Joby supportive of patient's wishes. Patient wishing to complete palliative radiation with the goal of enrolling into hospice services upon discharge for pain and symptom management. Discussed that palliative radiation would have to be completed or discontinued for hospice eligibility. Patient and family verbalized understanding. Case discussed in great detail with Collin Klein, hospice admissions nurse [facility]/Dr. Albarran and . . Function/Cognitive Trajectory Patient residing with in private home prior to this admission. Requiring assistance with ADLs given intractable pain. Walking with walker at home. No cognitive decline reported. . (Dilcia Martino) Review of Systems Constitutional: COMPLAINS OF: Fatigue, Pain, DENIES: Fever, Night Sweats Endocrine: DENIES: Heat/cold intolerance Eyes: DENIES: Blurred vision, Eye pain Ears, nose, mouth, throat: DENIES: Hearing loss, Nasal discharge, Hoarseness, Running Nose Respiratory: DENIES: Apneas, Cough, Sputum production Cardiovascular: DENIES: Chest pain, Dyspnea on Exertion, Lower Extremity Edema Gastrointestinal: DENIES: Abdominal pain, Diarrhea, Nausea, Vomiting Genitourinary: DENIES: Urinary incontinence Musculoskeletal: COMPLAINS OF: Back pain, Decreased range of motion Integumentary: DENIES: Abnormal pigmentation Hematologic/Lymphatics: DENIES: Bruising Immunologic/Allergic: DENIES: Eczema Neurologic: DENIES: Abnormal gait, Tremor, Poor Balance Psychiatric: COMPLAINS OF: Anxiety, DENIES: Confusion, Depression, Hallucinations, Agitation (Dilcia Martino) Past Family Social History Coded Allergies: ampicillin (Verified Adverse Reaction, Severe, N/V, 05/13/17) Past Medical History Metastatic adenocarcinoma of the lung diagnosed April 2017 right lung tumor Coronary artery disease history of stents 3 Hypercholesterolemia Hypertension Peripheral arterial disease of bilateral lower extremities Left bundle-branch block 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 Holman . Past Surgical History Cholecystectomy Appendectomy Right second digit surgery Thyroidectomy in [address] guided biopsy of lung mass CT guided biopsy of right deltoid mass . Reported Medications Lactulose Liq (Lactulose) 10 Gm/15 Ml Soln 30 Ml PO QD Protonix (Pantoprazole Sodium) 20 Mg Tab 20 Mg PO DAILY Dexamethasone 4 Mg Tab 4 Mg PO Q6HR Senna Plus 8.6-50 mg (Sennosides-Docusate Sodium) 8.6 Mg-50 Mg Tab 1 Tab PO BID Morphine ER (Morphine Sulfate) 30 Mg Tab 30 Mg PO Q12HR Dilaudid (Hydromorphone HCl) 2 Mg Tab 2 Mg PO Q6H PRN Vitamin D3 (Cholecalciferol) 5,000 Unit Cap 5,000 Units PO DAILY Levothyroxine (Levothyroxine Sodium) 125 Mcg Tab 125 Mcg PO DAILY Atenolol 25 Mg Tab 25 Mg PO DAILY Lisinopril 20 Mg Tab 20 Mg PO DAILY . Current Medications Medications (Trade) Dose Ordered Sig/Theron Route Start Time Stop Time Status Last Admin (Tenormin) 25 mg DAILY PO 05/14/17 09:00 05/16/17 09:00 (Vitamin D3) 5,000 units DAILY PO 05/14/17 09:00 05/16/17 08:48 (Decadron) 4 mg Q6HR PO 05/13/17 18:00 05/16/17 12:06 (Synthroid) 125 mcg DAILY@0600 PO 05/14/17 06:00 05/16/17 06:05 (Prinivil) 20 mg DAILY PO 05/14/17 09:00 05/16/17 08:48 (Oramorph Sr) 30 mg Q8H PO 05/13/17 18:00 05/16/17 10:33 (Protonix) 20 mg DAILY PO 05/14/17 09:00 05/16/17 08:48 (Hilaria-Colace) 1 tab BID PO 05/13/17 21:00 05/16/17 08:48 Sodium Chloride 1,000 ml @ 100 mls/hr Q10H IV 05/13/17 18:00 05/16/17 00:15 (NS Flush) 2 ml UNSCH PRN IV FLUSH 05/13/17 17:00 (NS Flush) 2 ml BID IV FLUSH 05/13/17 21:00 05/15/17 21:17 (Tylenol) 650 mg Q4H PRN PO 05/13/17 17:00 (Zofran Inj) 4 mg Q6H PRN IVP 05/13/17 17:00 (Compazine Supp) 25 mg Q12H PRN RECTAL 05/13/17 17:00 (Restoril) 15 mg HS PRN PO 05/13/17 17:00 (Lovenox Inj) 40 mg Q24H SQ 05/13/17 20:00 05/15/17 21:17 (Tylenol) 650 mg Q6H PRN PO 05/13/17 17:00 (Narcan Inj) 0.4 mg UNSCH PRN IV PUSH 05/13/17 17:00 (Milk Of Magnesia Liq) 30 ml Q12H PRN PO 05/13/17 17:00 (Senokot) 17.2 mg Q12H PRN PO 05/13/17 17:00 (Dulcolax Supp) 10 mg DAILY PRN RECTAL 05/13/17 17:00 (Msir) 15 mg Q4H PRN PO 05/14/17 10:45 05/14/17 16:22 (Lactulose Liq) 30 ml BID PO 05/14/17 21:00 (Dilaudid Pf Inj) 1 mg Q2HR PRN IV PUSH 05/15/17 10:45 05/15/17 19:20 (Phazyme Chew) 125 mg Q8H PRN PO 05/15/17 18:45 05/15/17 21:16 Family History Father of metastatic colon cancer, brother with history of colon cancer. Mother of advanced age. . Substance Use Tobacco: Smoker. 60 year pack history. Alcohol: Socially. Prescription med abuse: Denies. Illicits: Denies. . Psychosocial History Patient is . He has 2 adult children, Joby and Martita who reside locally. 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 . (Dilcia Martino) Living Will: Completed, but not made available Health Care Surrogate: Completed, but not made available Durable Power of Tie Worker: Completed, but not made available Health Care Surrogate(s): Patient reports that his Keyona Abbott is designated healthcare surrogate. . Documented care wishes: Pending copy of living will. . Today's verbally stated goals: DNR/DNI. Continue current management short of no code to include palliative radiation. Goal to transition to comfort directed care with hospice upon XRT completion. . Family/friends goals: Family supportive of patient's wishes. . Ethical and Legal Issues No ethical legal issues identified. . (Dilcia Martino) Physical Exam Vital Signs Date Time Temp Pulse Resp B/P (MAP) Pulse Ox O2 Delivery O2 Flow Rate FiO2 05/16/17 09:43 99 Nasal Cannula 2.00 05/16/17 08:00 95.1 77 18 114/88 (97) 99 05/16/17 04:00 97.1 79 18 121/55 (77) 96 05/16/17 00:00 97.3 81 17 117/55 (75) 97 05/15/17 20:00 96.7 82 18 109/55 (73) 95 05/15/17 16:14 96 Nasal Cannula 2.00 05/15/17 16:00 97.0 77 18 107/62 (77) 96 05/16/17 05/17/17 19:00 07:00 Output Total 125 ml Balance -125 ml Output Urine Total 125 ml Exam CONSTITUTIONAL/GENERAL: This is an adequately nourished patient, in no apparent distress. TUBES/LINES/DRAINS: PIV's. SKIN: No jaundice, rashes, or lesions. No wounds seen anteriorly. Skin temperature appropriate. Not diaphoretic. HEAD: Atraumatic. Normocephalic. EYES: Pupils equal and round and reactive. Extraocular motions intact. No scleral icterus. No injection or drainage. Fundi not examined. ENT: Hearing grossly normal. Nose without bleeding or purulent drainage. Moist oral mucosa. NECK: Trachea midline. Supple, nontender. CARDIOVASCULAR: Regular rate and rhythm without murmurs, gallops, or rubs. No JVD. Peripheral pulses symmetric. RESPIRATORY/CHEST: Symmetric, unlabored respirations. Clear to auscultation. Breath sounds equal bilaterally. No wheezes, rales, or rhonchi. GASTROINTESTINAL: Abdomen round, large, nontender. No guarding. Bowel sounds present. GENITOURINARY: Without palpable bladder distension. MUSCULOSKELETAL: Extremities without clubbing, cyanosis, or edema. NEUROLOGICAL: Awake and alert. Motor and sensory grossly within normal limits. Follows commands. Cognitively sharp. Moves all extremities. PSYCHIATRIC: Intermittent periods of anxiety. . (Dilcia Martino) Diagnostic Tests Laboratory Laboratory Tests Test 05/13/17 13:50 05/13/17 17:30 05/14/17 06:48 Prothrombin Time 13.8 SEC (9.8-11.6) Prothromb Time International Ratio 1.2 RATIO Activated Partial Thromboplast Time 23.1 SEC (24.3-30.1) Urine Color YELLOW (YELLW/STRAW) Urine Turbidity CLEAR (CLEAR) Urine pH 6.0 (5.0-8.5) Urine Specific [place] 1.024 (1.002-1.035) Urine Protein TRACE mg/dL (NEG-TRACE) Urine Glucose (UA) TRACE mg/dL (NEG) Urine Ketones TRACE mg/dL (NEG) Urine Occult Blood NEG (NEG) Urine Nitrite NEG (NEG) Urine Bilirubin NEG (NEG) Urine Urobilinogen LESS THAN 2.0 MG/DL (LESS Urine Leukocyte Esterase NEG (NEG) Urine RBC 1 /hpf (0-3) Urine WBC 2 /hpf (0-5) Urine Mucus FEW /lpf (OCC) Microscopic Urinalysis Comment CULT NOT INDICATED White Blood Count 21.2 TH/MM3 (4.0-11.0) Red Blood Count 4.73 MIL/MM3 (4.50-5.90) Hemoglobin 12.3 GM/DL (13.0-17.0) Hematocrit 38.2 % (39.0-51.0) Mean Corpuscular Volume 80.8 FL (80.0-100.0) Mean Corpuscular Hemoglobin 26.1 PG (27.0-34.0) Mean Corpuscular Hemoglobin Concent 32.3 % (32.0-36.0) Red Cell Distribution Width 16.5 % (11.6-17.2) Platelet Count 140 TH/MM3 (150-450) Mean Platelet Volume 8.1 FL (7.0-11.0) Neutrophils (%) (Auto) 88.1 % (16.0-70.0) Lymphocytes (%) (Auto) 3.8 % (9.0-44.0) Monocytes (%) (Auto) 7.9 % (0.0-8.0) Eosinophils (%) (Auto) 0.1 % (0.0-4.0) Basophils (%) (Auto) 0.1 % (0.0-2.0) Neutrophils # (Auto) 18.7 TH/MM3 (1.8-7.7) Lymphocytes # (Auto) 0.8 TH/MM3 (1.0-4.8) Monocytes # (Auto) 1.7 TH/MM3 (0-0.9) Eosinophils # (Auto) 0.0 TH/MM3 (0-0.4) Basophils # (Auto) 0.0 TH/MM3 (0-0.2) CBC Comment AUTO DIFF Differential Comment AUTO DIFF CONFIRMED Platelet Estimate LOW (NORMAL) Platelet Morphology Comment NORMAL (NORMAL) Blood Urea Nitrogen 24 MG/DL (7-18) Creatinine 0.64 MG/DL (0.60-1.30) Random Glucose 97 MG/DL (74-106) Total Protein 5.0 GM/DL (6.4-8.2) Albumin 2.5 GM/DL (3.4-5.0) Calcium Level 7.4 MG/DL (8.5-10.1) Phosphorus Level 1.8 MG/DL (2.5-4.9) Magnesium Level 2.2 MG/DL (1.5-2.5) Alkaline Phosphatase 91 U/L (45-117) Aspartate Amino Transf (AST/SGOT) 31 U/L (15-37) Alanine Aminotransferase (ALT/SGPT) 113 U/L (12-78) Total Bilirubin 1.2 MG/DL (0.2-1.0) Sodium Level 139 MEQ/L (136-145) Potassium Level 4.2 MEQ/L (3.5-5.1) Chloride Level 107 MEQ/L (98-107) Carbon Dioxide Level 23.4 MEQ/L (21.0-32.0) Anion Gap 9 MEQ/L (5-15) Estimat Glomerular Filtration Rate 122 ML/MIN (>89) Hemoglobin A1c 6.4 % (4.3-6.0) Protein Corrected Calcium 8.6 MG/DL (8.5-10.1) Free Thyroxine 1.12 NG/DL (0.76-1.46) Thyroid Stimulating Hormone 3rd Gen 0.168 uIU/ML (0.358-3.740) (Dilcia Martino) Result Diagram: 05/14/17 0648 05/14/17 0648 Imaging Last Impressions Abdomen/Pelvis CT 05/14/17 1526 Signed Impressions: Service Date/Time: Sunday, May 14, 2017 16:43 - CONCLUSION: 1. Findings consistent with diffuse hepatic and osseous metastatic disease. 2. There is a destructive focal 1.8 x 1.9 cm mass in the superior posterior endplate of the L2 vertebral body with posterior cortical erosion. This may or account for patient's back pain. 3. There is also a 2.9 cm destructive mass involving the anterior right femoral neck which may predispose to pathologic fracture. 4. Bilateral adrenal masses with imaging features as previously described. 5. Stable axillary findings, as above. Juan Beebe MD (Dilcia Martino) Patient/Family Conference Present at Family Conference: Patient, Keyona and son Joby. . Family Conference Time (mins): 48 Family Conference Location: Bedside Issues Discussed: * Palliative care role, purpose, approach * Additional medical, psychosocial, and spiritual history * Patients general health, functional status, and cognitive changes in the months leading up to the current hospitalization * Patient/family understanding of the current medical problems * Patient/family understanding of prognosis * Patients goals of care as best understood from advance directives and/or conversations and/or values * Current medical treatment options and benefits/burdens of those options * Likely scenarios comparing ongoing aggressive care with a transition to comfort measures only * Questions answered to the best of my ability * Palliative care contact information provided * Risks, benefits and limitations of CPR, intubation and mechanical ventilation * Hospice philosophy and benefits . (Dilcia Martino) Assessment and Plan Disease Oriented Problem List: (1) Lung cancer metastatic to bone (2) Liver metastasis Symptom Scale: (1) Uncontrolled pain 0-10 Scale: 7 Comment: Secondary to burden of disease (2) Constipation 0-10 Scale: Unable to quantify Comment: Exacerbated by opioid use and bedrest Pertinent Non-Medical Issues Psychosocial: Patient is . He has 2 adult children, Joby and Martita who reside locally. 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 Spiritual: No lutheran affiliation. Legal: Pending copy of living will/advanced directives. Ethical issues impacting care: No ethical issues have been identified. . Important Contacts Keyona Abbott . . Prognosis Mr. Abbott is a 72-year-old male with a medical history significant for metastatic adenocarcinoma of the long, CAD status post stents x3, hypertension, PAD and skin cancer. Patient admitted on 05/13/17 secondary to intractable back pain. Patient's overall prognosis is poor give progressive metastatic cancer involving lung, bone, muscle and liver. Patient appears hospice appropriate should pt/family elects comfort-directed care. . Code Status: No Code Plan * CODE STATUS: No code. DNR/DNI. Risks, benefits and limitations of CPR, intubation and mechanical ventilation discussed with patient and family. Patient electing no code. * HEALTHCARE DECISION-MAKING: Patient participating in medical decision-making. Patient demonstrates a good understanding of his medical condition/disease process and the ability to weight the benefits and burdens of treatment options. Patient has designated his Keyona Abbott as healthcare surrogate decision maker. * GOALS OF CARE: Patient electing to continue with current management short of no code to include palliative radiation. Goal of therapy is to transition patient to comfort-directed care with hospice upon XRT completion. Patient wishing to complete palliative radiation with the goal of enrolling into hospice services upon discharge for pain and symptom management/end of life care. Discussed with pt/fam that palliative radiation would have to be completed or discontinued for hospice eligibility. Patient and family verbalized understanding, they were encouraged to discuss further with Dr. Mayo. * SYMPTOMS: = Intractable pain, secondary to burden of disease. Bony metastasis with destructive focal 1.81.9 cm mass in the superior-posterior endplate of the L2 vertebral body with posterior cortical erosion. Also 2.9 cm destructive mass involving the anterior right femoral neck. Patient currently on Oramorph Sr 30 mg q8hr ATC and dexamethasone 4 mg q6hr ATC. Morphine 15 mg q4hr PRN and Dilaudid 1mg IV q2hr PRN available. Has received 1 dose of Dilaudid in the past 24 hours. Patient reports that pain is "controlled" as long as he is not moving. Patient endorsing excruciating pain on minimal movement/exertion. Pain described as combination of somatic and neuropathic pain. Patient may benefit from adding Gabapentin to his pain regimen. Recommend starting with 300 mg at at bedtime. = Anxiety, exacerbated by acute pain and steroid use. Patient currently on dexamethasone 4 mg q6hr ATC. Palliative care recommends scheduling current dexamethasone 8mg in AM and 8mg at 16:00 -avoid dexamethasone at nighttime. Patient may benefit from low-dose benzodiazepine such as lorazepam 0.5mg q6hr PRN. * Case discussed with Dr. Mayo, Collin RAYMUNDO, Dr. Conklin and business practices supervisor [facility]/ Dr. Albarran. * Palliative care contact information has been provided to patient and family. * Palliative care will continue to follow-up for further clarifications of goals of care as his clinical course continues to evolve. . (Dilcia Martino) Time Spent Total Floor Time (mins): 95 (Total time to include review and summarization of available medical records to include prior hospitalizations, physical exam, 2 separate goals of care conversation with patient and family, case discussion with Dr. Mayo, Dr. Frances, Maeve Grimaldo, business practices supervisor [facility] and Dr. Albarran.) >50% Counseling/Coord of Care: Yes (Dilcia Martino) Thank you for the opportunity to participate in the care of Mr. Abbott. (Dilcia Martino) Attestation To help prompt me to consider important information that might be impacting today's encounter and assessment, information from prior notes written by myself or my colleagues may have been "brought forward" into today's note. My signature on this note, however, is an attestation that I personally performed the exam, history, and/or decision-making noted today, and, unless otherwise indicated, the interactions with patient, family, and staff as well as the review of records all occurred today. I also attest that the listed assessment and stated plan reflect my best clinical judgment today based on the combination of historical information, prior notes, and today's exam/ interactions. When time spent is documented, it refers only to time spent today by the signer, or if indicated, combined time spent today by collaborating physician/nurse practitioner. (Dilcia Martino) Collaborating MD Comments Chart reviewed. Case discussed with palliative care [employer]. Above note reviewed and I concur. . (Sacha Albarran MD) Dilcia Martino May 16, 2017 14:12 Sacha Albarran MD May 22, 2017 12:06
[2017-05-16] MEDS: HYDROmorphone HCL PF 1 MG/ML VIAL IV PUSH PRN ×3 (14:42→22:39)
--- NOTE | 2017-05-16 16:39 | HHI.PR ---
Subjective Remarks No acute deterioration as noted overnight per nursing. Patient himself apparently is excepting conversation with hospice and palliative care. He states that it is overwhelmingly burdensome for his family to take care of him in the state that he isn't knowing that he has excruciating pain when he moves. wants to do palliative radiation treatments and is considering hospice. Objective Vital Signs Date Time Temp Pulse Resp B/P (MAP) Pulse Ox O2 Delivery O2 Flow Rate FiO2 05/16/17 12:00 96.0 77 20 132/65 (87) 96 05/16/17 09:43 99 Nasal Cannula 2.00 05/16/17 08:00 95.1 77 18 114/88 (97) 99 05/16/17 04:00 97.1 79 18 121/55 (77) 96 05/16/17 00:00 97.3 81 17 117/55 (75) 97 05/15/17 20:00 96.7 82 18 109/55 (73) 95 I/O 05/15/17 05/15/17 05/15/17 05/16/17 05/16/17 05/16/17 06:59 14:59 22:59 06:59 14:59 22:59 Intake Total 2170 ml 240 ml 1480 ml 480 ml Output Total 350 ml 600 ml 900 ml 800 ml 125 ml Balance 1820 ml -360 ml 580 ml -320 ml -125 ml Intake Oral 240 ml 480 ml 480 ml IV Total 2170 ml 1000 ml Output Urine Total 350 ml 600 ml 900 ml 800 ml 125 ml Result Diagram: 05/14/17 0648 05/14/17 0648 Objective Remarks Is awake alert, oriented Abdomen is soft, non-distended, nontender Unlabored breathing, clear lungs bilaterally A/P Assessment and Plan 72-year-old white male admitted for intractable back pain secondary to metastatic lung cancer. intractable Back pain - 2/2 mets from lung cancer - no improvement per pt, Oncology managing, modifying pain med regimen, continue to monitor respiratory status, - radiation palliatve tx's to start, hospice consult pending metastatic dx - 2/2 lung cancer, lesions noted over liver as well Constipation - will try relistor today after radiation tx. Hypothyroidism - continue his levothyroxine Hypertension -continue on his lisinopril and his atenolol Lovenox Sabino Conklin MD May 16, 2017 16:39
[2017-05-16] MEDS ORDERED: METHYLNALTREXONE BROMIDE 12 MG/0.6 ML VIAL SQ ONE (18:00)
[2017-05-16] MEDS: ENOXAPARIN SODIUM 40 MG/0.4 ML SYRINGE SQ SCH (20:23)
[2017-05-16] MEDS: SODIUM CHLORIDE 0.9% FLUSH 10 ML FLUSH IV FLUSH PRN (22:39)
[2017-05-17] VITALS: BP 149/69; PULSE 78; RESP 18; TEMP 97.5; O2SAT 95
[2017-05-17] MEDS: DEXAMETHASONE 4 MG TAB PO SCH ×5 (00:45→22:26)
[2017-05-17] MEDS: MORPHINE SULFATE 30 MG CONTROLLED RELEASE TAB PO SCH ×3 (01:13→17:03)
[2017-05-17] MEDS: HYDROmorphone HCL PF 1 MG/ML VIAL IV PUSH PRN ×9 (01:15→22:27)
[2017-05-17] MEDS: SODIUM CHLORIDE 0.9% FLUSH 10 ML FLUSH IV FLUSH PRN (01:16)
[2017-05-17] MEDS: SODIUM CHLOR 0.9% 1000 ML INJ 1,000 ML IV SCH ×3 (01:18→19:32)
[2017-05-17 04:00] VITALS: BP 145/67; PULSE 74; RESP 17; TEMP 96.6; O2SAT 96
[2017-05-17] MEDS: LEVOTHYROXINE SODIUM 125 MCG TAB PO SCH (05:24)
[2017-05-17] MEDS: SODIUM CHLORIDE 0.9% FLUSH 10 ML FLUSH IV FLUSH SCH ×2 (07:44→20:25)
[2017-05-17] MEDS: LACTULOSE SYRUP 20 GM/30 ML CUP PO SCH ×2 (07:45→20:25)
[2017-05-17] MEDS: LISINOPRIL 20 MG TAB PO SCH (07:47)
[2017-05-17] MEDS: DOCUSATE SODIUM 50 MG/SENNA 8.6 MG TAB PO SCH ×2 (07:47→20:25)
[2017-05-17] MEDS: PANTOPRAZOLE SOD 20 MG DELAYED RELEASE TAB PO SCH (07:48)
[2017-05-17] MEDS: ATENOLOL 25 MG TAB PO SCH (07:48)
[2017-05-17] MEDS: CHOLECALCIFEROL (VIT D3) 5000 UNIT CAP PO SCH (07:49)
[2017-05-17 08:00] VITALS: BP 171/72; PULSE 82; RESP 14; TEMP 96.5; O2SAT 96
--- NOTE | 2017-05-17 08:34 | PD.ONC.PN ---
Subjective Subjective Remarks Pt reports his pain is controlled so long as he remains in bed. He tells me the pain was almost unbearable yesterday when he transferred to the radiation table. He tells me he does not want to endure that type of pain again. He reiterates his desire to be transferred to the [facility] and at this point is not certain if he wants to continue palliative radiation. Objective Data Date Time Temp Pulse Resp B/P (MAP) Pulse Ox O2 Delivery O2 Flow Rate FiO2 05/17/17 04:00 96.6 74 17 145/67 (93) 96 05/17/17 00:00 97.5 78 18 149/69 (95) 95 05/16/17 20:00 96.4 80 17 135/63 (87) 96 05/16/17 16:00 97.9 80 20 134/74 (94) 96 05/16/17 12:00 96.0 77 20 132/65 (87) 96 05/16/17 09:43 99 Nasal Cannula 2.00 05/17/17 05/17/17 05/17/17 07:00 15:00 23:00 Intake Total 900 ml Output Total 500 ml Balance 400 ml Result Diagram: 05/14/1748 05/14/17 0648 Administered Medications Medications (Trade) Dose Ordered Sig/Theron Route PRN Reason Start Time Stop Time Status Last Admin Dose Admin Atenolol (Tenormin) 25 mg DAILY PO 05/14/17 09:00 05/17/17 07:48 Cholecalciferol (Vitamin D3) 5,000 units DAILY PO 05/14/17 09:00 05/17/17 07:49 Dexamethasone (Decadron) 4 mg Q6HR PO 05/13/17 18:00 05/17/17 05:24 Levothyroxine Sodium (Synthroid) 125 mcg DAILY@0600 PO 05/14/17 06:00 05/17/17 05:24 Lisinopril (Prinivil) 20 mg DAILY PO 05/14/17 09:00 05/17/17 07:47 Morphine Sulfate (Oramorph Sr) 30 mg Q8H PO 05/13/17 18:00 05/17/17 01:13 Pantoprazole Sodium (Protonix) 20 mg DAILY PO 05/14/17 09:00 05/17/17 07:48 Senna/Docusate Sodium (Bib-Colace) 1 tab BID PO 05/13/17 21:00 05/17/17 07:47 Sodium Chloride 1,000 ml @ 100 mls/hr Q10H IV 05/13/17 18:00 05/17/17 01:18 Sodium Chloride (NS Flush) 2 ml UNSCH PRN IV FLUSH FLUSH AFTER USING IV ACCESS 05/13/17 17:00 05/17/17 01:16 Sodium Chloride (NS Flush) 2 ml BID IV FLUSH 05/13/17 21:00 05/16/17 20:25 Enoxaparin Sodium (Lovenox Inj) 40 mg Q24H SQ 05/13/17 20:00 05/16/17 20:23 Morphine Sulfate (Msir) 15 mg Q4H PRN PO pain1-8 05/14/17 10:45 05/14/17 16:22 Hydromorphone HCl (Dilaudid Pf Inj) 1 mg Q2HR PRN IV PUSH pain9-10 05/15/17 10:45 05/17/17 07:50 Simethicone (Phazyme Chew) 125 mg Q8H PRN PO GAS RETENTION 05/15/17 18:45 05/15/17 21:16 Objective Remarks GENERAL APPEARANCE: Mr. Abbott is an elderly male, he is laying in bed, he is Awake and alert. HEENT: Head is atraumatic, normocephalic, conjunctive are not pale, sclerae are nonicteric, EOMI, PERRLA, oral exam no pharyngeal erythema. NECK: Neck exam no palpable cervical or supraclavicular lymphadenopathy. RESPIRATORY EXAM: Good air movement bilaterally with prolonged expiratory phase. CARDIOVASCULAR: Tachycardiac, regular, S1-S2 without obvious murmurs, rubs or gallops. ABDOMINAL EXAM: Protuberant, soft without obvious organ enlargement, no obvious tenderness noted. LOWER EXTREMITIES: Good muscle mass and tone, he is moving both limbs spontaneously and has adequate motor strength. SKIN: He has chronic smoking related changes noted. I would also like to add there is an approximate 5 cm smooth surface mass involving the right deltoid muscle. Assessment/Plan Problem List: (1) Uncontrolled pain ICD Codes: R52 - Pain, unspecified Plan: --on Oramorph 30mg PO q 8 hours with PRN MSIR nad Dilaudid for breakthrough pain --also on Decadron --Back pain related to the bony mets to his L and S spine and pelvis. 05/05--> underwent simulation for palliative RT to the lumbar spine as well as the symptomatic pelvic lesions. --started XRT 05/08 (2) Lung cancer metastatic to bone ICD Codes: C34.90 - Malignant neoplasm of unspecified part of unspecified bronchus or lung; C79.51 - Secondary malignant neoplasm of bone Plan: --treatment outpatient per Dr. Mayo --Newly diagnosed adenocarcinoma of lung primary (3) Constipation ICD Codes: K59.00 - Constipation, unspecified Plan: --on bib-colace BID + daily Lactulose. --PRN MoM Assessment 72y/o male with NSCLC with mets to bone and liver, admitted with intractable back pain. Plan 1. Metastatic non-small cell carcinoma with extensive liver bony and soft tissue metastases including metastases to the muscles. Primary site may be lung given the immunohistochemical staining pattern. No actionable mutations identified on extensive analysis, PDL-1: 0% expression. I did offer him palliative systemic chemotherapy to help manage disease-related symptoms and to help prolong survival. He declines palliative systemic chemotherapy and prefers a comfort oriented approach. He has requested hospice. Continue symptom management as this seems to have helped his pain. I spoke to our radiation oncologist to determine if the patient's radiation can be modified/accelerated so he completes treatment sooner with fewer fractions. This way he will be able to enroll on hospice sooner. The patient insists on [facility] because he wishes to take advantage of the hospice inpatient care centers. At this point, I would recommend he remained inpatient while we sort out the radiation treatment and his pain as well as posthospital care i.e. home with hospice versus direct transfer to the hospice care center. Problem Qualifiers (1) Constipation: Qualified Codes: K59.03 - Drug induced constipation Oliver Mayo MD May 17, 2017 08:34
--- NOTE | 2017-05-17 11:59 | HHI.HCPN ---
Reason for visit a. To assist with evaluation and management of symptoms including: Pain and anxiety. b. To assist medical decision maker(s) with: better understanding of current medical conditions; weighing benefits/burdens of medical treatment options; making medical treatment decisions. . (Dilcia Martino) Subjective/Interval History Mr. Abbott is a 72-year-old male with a medical history significant for metastatic adenocarcinoma of the long, CAD status post stents x3, hypertension, PAD and skin cancer. Patient with a history of metastatic lung cancer recently diagnosed on April 2017, concerns for possible GI primary. Patient currently undergoing palliative radiation to lumbar spine and pelvis, started on 05/09/17. Palliative care consulted for further clarifications of goals of care. Patient seen in oncology floor. He was resting in bed in moderate distress secondary to intractable pain. Patient endorsing back and shoulder pain currently rated at 9/10. Pain described as sharp, will localized. Exacerbated by any physical movement, alleviated temporarily by immobility and IV hydromorphone. Patient currently on Oramorph 30 mg q8hr ATC and hydromorphone 1 mg as needed. Has received a total of 6 doses of hydromorphone for a total of 6 mg in the past 24 hours. Patient reports that the effects of hydromorphone wears out shortly. Patient remains afebrile, stable hemodynamically. Currently tolerated room air, oxygen saturation in the mid 90s. No laboratory workup or imaging available for review at this time. Dual meeting with hospice admissions nurse Genesis, patient, his Keyona and palliative care. Patient reports that his experience yesterday with radiation was "bad", reporting excruciating pain when he was transferred to the radiation table. Patient verbalized NOT wishing to continue palliative radiation treatments and is in favor of comfort-directed care with hospice. Goal to discharge to hospice care center for pain and symptom management. However, patient feels that this needs to be discussed with his 2 children. Hospice benefits and philosophy discussed in great detail. All questions were answered in great detail. . Family/friend interactions See interval note. . (Dilcia Martino) Advance Directives Living Will: Completed, but not made available Health Care Surrogate: Completed, but not made available Durable Power of Licensing And Registration Director: Completed, but not made available (Dilcia Martino) Advance Directive Specifics Health Care Surrogate(s): Patient reports that his Keyona Abbott is designated healthcare surrogate. . Documented care wishes: Pending copy of living will. . Significant change in goals: No code. DNR/DNI. Patient strongly considering transitioning to comfort- directed care with hospice. . (Dilcia Martino) Objective Vital Signs Date Time Temp Pulse Resp B/P (MAP) Pulse Ox O2 Delivery O2 Flow Rate FiO2 05/17/17 08:00 96.5 82 14 171/72 (105) 96 05/17/17 04:00 96.6 74 17 145/67 (93) 96 05/17/17 00:00 97.5 78 18 149/69 (95) 95 05/16/17 20:00 96.4 80 17 135/63 (87) 96 05/16/17 16:00 97.9 80 20 134/74 (94) 96 05/16/17 12:00 96.0 77 20 132/65 (87) 96 Intake & Output 05/17/17 05/17/17 07:00 19:00 Intake Total 900 ml 1000 ml Output Total 600 ml 300 ml Balance 300 ml 700 ml IV Total 900 ml 1000 ml Output Urine Total 600 ml 300 ml # Bowel Movements 1 Physical Exam CONSTITUTIONAL/GENERAL: This is an adequately nourished patient, in no apparent distress. TUBES/LINES/DRAINS: PIV's. SKIN: No jaundice, rashes, or lesions. No wounds seen anteriorly. Skin temperature appropriate. Not diaphoretic. HEAD: Atraumatic. Normocephalic. EYES: Pupils equal and round and reactive. Extraocular motions intact. No scleral icterus. No injection or drainage. Fundi not examined. ENT: Hearing grossly normal. Nose without bleeding or purulent drainage. Moist oral mucosa. NECK: Trachea midline. Supple, nontender. CARDIOVASCULAR: Regular rate and rhythm without murmurs, gallops, or rubs. No JVD. Peripheral pulses symmetric. RESPIRATORY/CHEST: Symmetric, unlabored respirations. Clear to auscultation. Breath sounds equal bilaterally. No wheezes, rales, or rhonchi. GASTROINTESTINAL: Abdomen round, large, nontender. No guarding. Bowel sounds present. GENITOURINARY: Without palpable bladder distension. MUSCULOSKELETAL: Extremities without clubbing, cyanosis, or edema. NEUROLOGICAL: Awake and alert. Motor and sensory grossly within normal limits. Follows commands. Cognitively sharp. Moves all extremities. PSYCHIATRIC: Intermittent periods of anxiety. . (Dilcia Martino) Diagnostic Tests Result Diagram: 05/14/1764705/14/17647 Assessment and Plan Disease Oriented Problem List: (1) Lung cancer metastatic to bone (2) Liver metastasis Symptom Scale: (1) Uncontrolled pain 0-10 Scale: 8 Comment: Secondary to burden of disease (2) Constipation 0-10 Scale: Unable to quantify Comment: Exacerbated by opioid use and bedrest Pertinent Non-Medical Issues Psychosocial: Patient is . He has 2 adult children, Joby and Martita who reside locally. 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 Spiritual: No judaism affiliation. Legal: Pending copy of living will/advanced directives. Ethical issues impacting care: No ethical issues have been identified. . Important Contacts Keyona Abbott . . Prognosis Mr. Abbott is a 72-year-old male with a medical history significant for metastatic adenocarcinoma of the long, CAD status post stents x3, hypertension, PAD and skin cancer. Patient admitted on 05/13/17 secondary to intractable back pain. Patient's overall prognosis is poor give progressive metastatic cancer involving lung, bone, muscle and liver. Patient appears hospice appropriate should pt/family elects comfort-directed care. . Code Status: No Code Plan * CODE STATUS: No code. DNR/DNI. * HEALTHCARE DECISION-MAKING: Patient participating in medical decision-making. Patient demonstrates a good understanding of his medical condition/disease process and the ability to weight the benefits and burdens of treatment options. Patient has designated his Keyona Abbott as healthcare surrogate decision maker. * GOALS OF CARE: 05/16/17 -patient and family strongly considering transitioning patient to comfort-directed care with hospice. Patient verbalized NOT wishing to continue palliative radiation treatments and is in favor of comfort-directed care with hospice. Goal to discharge to hospice care center for pain and symptom management. However, patient feels that this needs to be discussed with his 2 children. Hospice is following at this time. * SYMPTOMS: = Intractable pain, secondary to burden of disease. Bony metastasis with destructive focal 1.81.9 cm mass in the superior-posterior endplate of the L2 vertebral body with posterior cortical erosion. Also 2.9 cm destructive mass involving the anterior right femoral neck. Patient currently on Oramorph Sr 30 mg q8hr ATC and dexamethasone 4 mg q6hr ATC. Morphine 15 mg q4hr PRN and Dilaudid 1mg IV q2hr PRN available. Has received 6 dose of Dilaudid in the past 24 hours. Patient reports that pain continues to be "excruciating". Pain described as combination of somatic and neuropathic pain. Patient may benefit from adding Gabapentin to his pain regimen. Recommend starting with 300 mg at at bedtime. Patient may benefit from switching morphine long-acting to methadone 5mg q8ht ATC given somatic and neuropathic pain. = Anxiety, exacerbated by acute pain and steroid use. Patient currently on dexamethasone 4 mg q6hr ATC. Palliative care recommends scheduling current dexamethasone 8mg in AM and 8mg at 16:00 -avoid dexamethasone at nighttime. Patient may benefit from low-dose benzodiazepine such as lorazepam 0.5mg q6hr PRN. = Constipation, exacerbated by opioid setting and bedrest. Patient received Relistor overnight with good effect. Currently on lactulose 30 ml twice a day. Senna S, Senokot and Dulcolax available as needed. * Case discussed with residential monitor Genesis. * Palliative care contact information has been provided to patient and family. * Palliative care will continue to follow-up for further clarifications of goals of care as his clinical course continues to evolve. . (Dilcia Martino) Time Spent Total Floor Time (mins): 38 (Total time to include review medical records, physical exam, goals of care conversation with patient and , case discussion with residential monitor Genesis.) >50% Counseling/Coord of Care: Yes (Dilcia Martino) Attestation To help prompt me to consider important information that might be impacting today's encounter and assessment, information from prior notes written by myself or my colleagues may have been "brought forward" into today's note. My signature on this note, however, is an attestation that I personally performed the exam, history, and/or decision-making noted today, and, unless otherwise indicated, the interactions with patient, family, and staff as well as the review of records all occurred today. I also attest that the listed assessment and stated plan reflect my best clinical judgment today based on the combination of historical information, prior notes, and today's exam/ interactions. When time spent is documented, it refers only to time spent today by the signer, or if indicated, combined time spent today by collaborating physician/nurse practitioner. (Dilcia Martino) Collaborating MD Comments Chart reviewed. Case discussed with palliative care MUSICAL THERAPIST. Above MUSICAL THERAPIST note reviewed and I concur. . (Sacha Albarran MD) Dilcia Martino May 17, 2017 11:59 Sacha Albarran MD May 22, 2017 15:09
[2017-05-17 12:00] VITALS: BP 141/64; PULSE 61; RESP 16; TEMP 98.2; O2SAT 97
[2017-05-17 16:00] VITALS: BP 148/86; PULSE 75; RESP 16; TEMP 96.8; O2SAT 99
--- NOTE | 2017-05-17 16:00 | HHI.PR ---
Subjective Remarks No acute deterioration as noted overnight per nursing. Discussed with palliative care, patient willing to proceed with hospice at [place]. Patient states that just getting to the radiation treatment downstairs was very painful and does not want to undergo that again. He does fortunately admit that he had a bowel movement sometime after being given the Relistor. Objective Vital Signs Date Time Temp Pulse Resp B/P (MAP) Pulse Ox O2 Delivery O2 Flow Rate FiO2 05/17/17 12:00 98.2 61 16 141/64 (89) 97 05/17/17 08:00 96.5 82 14 171/72 (105) 96 05/17/17 04:00 96.6 74 17 145/67 (93) 96 05/17/17 00:00 97.5 78 18 149/69 (95) 95 05/16/17 20:00 96.4 80 17 135/63 (87) 96 05/16/17 16:00 97.9 80 20 134/74 (94) 96 I/O 05/16/17 05/16/17 05/16/17 05/17/17 05/17/17 05/17/17 07:00 15:00 23:00 07:00 15:00 23:00 Intake Total 480 ml 480 ml 900 ml 1000 ml Output Total 800 ml 125 ml 450 ml 500 ml 300 ml 225 ml Balance -320 ml -125 ml 30 ml 400 ml 700 ml -225 ml Intake Oral 480 ml 480 ml IV Total 900 ml 1000 ml Output Urine Total 800 ml 125 ml 450 ml 500 ml 300 ml 225 ml # Bowel Movements 1 Result Diagram: 05/14/17 0648 05/14/17 0648 Imaging Last Impressions Abdomen/Pelvis CT 05/14/17 1526 Signed Impressions: Service Date/Time: Sunday, May 14, 2017 16:43 - CONCLUSION: 1. Findings consistent with diffuse hepatic and osseous metastatic disease. 2. There is a destructive focal 1.8 x 1.9 cm mass in the superior posterior endplate of the L2 vertebral body with posterior cortical erosion. This may or account for patient's back pain. 3. There is also a 2.9 cm destructive mass involving the anterior right femoral neck which may predispose to pathologic fracture. 4. Bilateral adrenal masses with imaging features as previously described. 5. Stable axillary findings, as above. Juan Beebe MD Objective Remarks Is awake alert, oriented Abdomen is soft, non-distended, nontender Unlabored breathing, clear lungs bilaterally A/P Assessment and Plan 72-year-old white male admitted for intractable back pain secondary to metastatic lung cancer. intractable Back pain - 2/2 mets from lung cancer - no improvement per pt, Oncology managing, modifying pain med regimen, continue to monitor respiratory status, - We'll add on nasal calcitonin to see if this helps - Patient refusing radiation treatment secondary to pain via transport, hospice has been consult and patient has had arrangements made to go tomorrow metastatic dx - 2/2 lung cancer, lesions noted over liver as well Constipation - improved w/ relistor Hypothyroidism - continue his levothyroxine Hypertension -continue on his lisinopril and his atenolol Lovenox Sabino Conklin MD May 17, 2017 16:00
[2017-05-17] MEDS: CALCITONIN SALM 200 UNIT/SPRAY 3.7 ML BTLN NASAL SCH (17:51)
[2017-05-17 20:00] VITALS: BP 131/62; PULSE 81; RESP 17; TEMP 97.5; O2SAT 96
[2017-05-17] MEDS: ENOXAPARIN SODIUM 40 MG/0.4 ML SYRINGE SQ SCH (20:25)
[2017-05-18] VITALS: BP 125/61; PULSE 77; RESP 17; TEMP 96.7; O2SAT 96
[2017-05-18] MEDS: MORPHINE SULFATE 30 MG CONTROLLED RELEASE TAB PO SCH ×2 (01:42→08:12)
[2017-05-18] MEDS: HYDROmorphone HCL PF 1 MG/ML VIAL IV PUSH PRN ×3 (01:43→08:11)
[2017-05-18 01:52] VITALS: O2SAT 97
[2017-05-18 04:00] VITALS: BP 140/70; PULSE 81; RESP 18; TEMP 96.1; O2SAT 98
[2017-05-18] MEDS: LEVOTHYROXINE SODIUM 125 MCG TAB PO SCH (05:10)
[2017-05-18] MEDS: SODIUM CHLOR 0.9% 1000 ML INJ 1,000 ML IV SCH (05:10)
[2017-05-18] MEDS: DEXAMETHASONE 4 MG TAB PO SCH ×2 (05:10→12:00)
[2017-05-18] MEDS ORDERED: LORazepam 0.5 MG TAB PO ONE (06:45)
[2017-05-18 08:00] VITALS: BP 154/79; PULSE 78; RESP 16; TEMP 96.4; O2SAT 97
[2017-05-18 08:12] VITALS: O2SAT 93
[2017-05-18] MEDS: LISINOPRIL 20 MG TAB PO SCH (08:12)
[2017-05-18] MEDS: ATENOLOL 25 MG TAB PO SCH (08:12)
[2017-05-18] MEDS: DOCUSATE SODIUM 50 MG/SENNA 8.6 MG TAB PO SCH (08:12)
[2017-05-18] MEDS: CHOLECALCIFEROL (VIT D3) 5000 UNIT CAP PO SCH (08:12)
[2017-05-18] MEDS: PANTOPRAZOLE SOD 20 MG DELAYED RELEASE TAB PO SCH (08:12)
[2017-05-18] MEDS: LACTULOSE SYRUP 20 GM/30 ML CUP PO SCH (08:28)
[2017-05-18] MEDS: CALCITONIN SALM 200 UNIT/SPRAY 3.7 ML BTLN NASAL SCH (08:29)
[2017-05-18] MEDS: SODIUM CHLORIDE 0.9% FLUSH 10 ML FLUSH IV FLUSH SCH (08:29)
--- NOTE | 2017-05-18 10:56 | HHI.HCPN ---
Reason for visit a. To assist with evaluation and management of symptoms including: Pain and anxiety. b. To assist medical decision maker(s) with: better understanding of current medical conditions; weighing benefits/burdens of medical treatment options; making medical treatment decisions. . Subjective/Interval History Mr. Abbott is a 72-year-old male with a medical history significant for metastatic adenocarcinoma of the long, CAD status post stents x3, hypertension, PAD and skin cancer. Patient with a history of metastatic lung cancer recently diagnosed on April 2017, concerns for possible GI primary. Patient currently undergoing palliative radiation to lumbar spine and pelvis, started on 05/09/17. Palliative care consulted for further clarifications of goals of care. Patient seen in oncology floor. He was resting in bed in moderate distress secondary to intractable pain. Patient endorsing back and shoulder pain currently rated at 8/10. Pain described as sharp, will localized. Exacerbated by any physical movement, alleviated temporarily by immobility and IV hydromorphone. Patient currently on Oramorph 30 mg q8hr ATC and hydromorphone 1 mg as needed. Has received a total of 6 doses of hydromorphone for a total of 12 mg in the past 24 hours. Patient reports that the effects of hydromorphone wears out shortly after doses given. Patient with an episode of restlessness/anxiety overnight, he was given 1 dose of Ativan this morning with good effect. Patient remains afebrile, stable hemodynamically. No laboratory workup or imaging available for review at this time. Spoke with patient and Keyona at bedside. Patient indicating that he has elected to transition to comfort-directed care with hospice. Plan to discharge to hospice care center for pain and symptom management. Case discussed with director of home care hospice Kari. . Family/friend interactions See interval note. . Advance Directives Living Will: Completed, but not made available Health Care Surrogate: Completed, but not made available Durable Power of [employer] Floor Supervisor: Completed, but not made available Advance Directive Specifics Health Care Surrogate(s): Patient reports that his Keyona Abbott is designated healthcare surrogate. . Documented care wishes: Pending copy of living will. . Significant change in goals: Patient has elected to transition to comfort-directed care with hospice. . Objective Vital Signs Date Time Temp Pulse Resp B/P (MAP) Pulse Ox O2 Delivery O2 Flow Rate FiO2 05/18/17 08:12 93 21 05/18/17 08:00 96.4 78 16 154/79 (104) 97 05/18/17 04:00 96.1 81 18 140/70 (93) 98 05/18/17 01:52 97 05/18/17 00:00 96.7 77 17 125/61 (82) 96 05/17/17 20:00 97.5 81 17 131/62 (85) 96 05/17/17 16:00 96.8 75 16 148/86 (106) 99 05/17/17 12:00 98.2 61 16 141/64 (89) 97 Intake & Output 05/18/17 05/18/17 07:00 19:00 Output Total 600 ml Balance -600 ml Output Urine Total 600 ml Physical Exam CONSTITUTIONAL/GENERAL: This is an adequately nourished patient in moderate distress secondary to pain. TUBES/LINES/DRAINS: PIV's. Nasal cannula. SKIN: No jaundice, rashes, or lesions. No wounds seen anteriorly. Skin temperature appropriate. Not diaphoretic. HEAD: Atraumatic. Normocephalic. EYES: Pupils equal and round and reactive. Extraocular motions intact. No scleral icterus. No injection or drainage. Fundi not examined. ENT: Hearing grossly normal. Nose without bleeding or purulent drainage. Moist oral mucosa. NECK: Trachea midline. Supple, nontender. CARDIOVASCULAR: Regular rate and rhythm without murmurs, gallops, or rubs. No JVD. Peripheral pulses symmetric. RESPIRATORY/CHEST: Symmetric, unlabored respirations. Clear to auscultation. Breath sounds equal bilaterally. No wheezes, rales, or rhonchi. GASTROINTESTINAL: Abdomen round, large, nontender. No guarding. Bowel sounds present. GENITOURINARY: Without palpable bladder distension. MUSCULOSKELETAL: Extremities without clubbing, cyanosis, or edema. NEUROLOGICAL: Awake and alert. Motor and sensory grossly within normal limits. Follows commands. Cognitively sharp. Moves all extremities. PSYCHIATRIC: Intermittent periods of anxiety. . Diagnostic Tests Result Diagram: 05/14/1764705/14/17647 Assessment and Plan Disease Oriented Problem List: (1) Lung cancer metastatic to bone (2) Liver metastasis Symptom Scale: (1) Uncontrolled pain 0-10 Scale: 8 Comment: Secondary to burden of disease (2) Constipation 0-10 Scale: Unable to quantify Comment: Exacerbated by opioid use and bedrest Pertinent Non-Medical Issues Psychosocial: Patient is . He has 2 adult children, Joby and Martita who reside locally. 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 Spiritual: No sikhism affiliation. Legal: Pending copy of living will/advanced directives. Ethical issues impacting care: No ethical issues have been identified. . Important Contacts Keyona Abbott . . Prognosis Mr. Abbott is a 72-year-old male with a medical history significant for metastatic adenocarcinoma of the long, CAD status post stents x3, hypertension, PAD and skin cancer. Patient admitted on 05/13/17 secondary to intractable back pain. Patient's overall prognosis is poor give progressive metastatic cancer involving lung, bone, muscle and liver. Patient appears hospice appropriate should pt/family elects comfort-directed care. . Code Status: No Code Plan * CODE STATUS: No code. DNR/DNI. * HEALTHCARE DECISION-MAKING: Patient participating in medical decision-making. Patient demonstrates a good understanding of his medical condition/disease process and the ability to weight the benefits and burdens of treatment options. Patient has designated his Keyona Abbott as healthcare surrogate decision maker. * GOALS OF CARE: 05/18/17 -Patient electing to transition to comfort-directed care with hospice, plan to discharge to hospice care center for pain and symptom management. Family fully supportive of patient's wishes. * SYMPTOMS: = Intractable pain, secondary to burden of disease. Bony metastasis with destructive focal 1.81.9 cm mass in the superior-posterior endplate of the L2 vertebral body with posterior cortical erosion. Also 2.9 cm destructive mass involving the anterior right femoral neck. Patient currently on Oramorph Sr 30 mg q8hr ATC and dexamethasone 4 mg q6hr ATC. Morphine 15 mg q4hr PRN and Dilaudid 1mg IV q2hr PRN available. Has received 12 dose of Dilaudid in the past 24 hours. Patient reports that pain continues to be "excruciating". Pain described as combination of somatic and neuropathic pain. Patient may benefit from adding Gabapentin to his pain regimen. Recommend starting with 300 mg at at bedtime. Patient may benefit from switching morphine long-acting to methadone 5mg q8ht ATC given somatic and neuropathic pain. = Anxiety, exacerbated by acute pain and steroid use. Patient currently on dexamethasone 4 mg q6hr ATC. Palliative care recommends scheduling current dexamethasone 8mg in AM and 8mg at 16:00 -avoid dexamethasone at nighttime. Patient may benefit from low-dose benzodiazepine, Adding lorazepam 0.5mg q6hr PRN. = Constipation, exacerbated by opioid setting and bedrest. Patient received Relistor overnight with good effect. Currently on lactulose 30 ml twice a day. Senna S, Senokot and Dulcolax available as needed. * Adding Ativan 1 mg IV and Dilaudid 1mg IV prior to transport to hospice care center for pain/comfort. Patient and in agreement with plan of care. * Case discussed with director of home care hospice Kari. * Palliative care contact information has been provided to patient and family. * Palliative care will continue to follow-up for further clarifications of goals of care as his clinical course continues to evolve. . Time Spent Total Floor Time (mins): 38 (Total time to include review of medical records, physical exam, goals of care conversation with patient and Keyona and case discussion with director of home care hospice Kari.) >50% Counseling/Coord of Care: Yes Attestation To help prompt me to consider important information that might be impacting today's encounter and assessment, information from prior notes written by myself or my colleagues may have been "brought forward" into today's note. My signature on this note, however, is an attestation that I personally performed the exam, history, and/or decision-making noted today, and, unless otherwise indicated, the interactions with patient, family, and staff as well as the review of records all occurred today. I also attest that the listed assessment and stated plan reflect my best clinical judgment today based on the combination of historical information, prior notes, and today's exam/ interactions. When time spent is documented, it refers only to time spent today by the signer, or if indicated, combined time spent today by collaborating physician/nurse practitioner. Dilcia Martino May 18, 2017 10:56
--- NOTE | 2017-05-18 11:16 | HHI.DCPOC ---
Discharge Care Plan Diagnosis: (1) Lung cancer metastatic to bone (2) Liver metastasis (3) Uncontrolled pain Goals to Promote Your Health * To prevent worsening of your condition and complications * To maintain your health at the optimal level Directions to Meet Your Goals Take your medications as prescribed Follow your dietary instruction Follow activity as directed Keep your appointments as scheduled Take your immunizations and boosters as scheduled If your symptoms worsen call your PCP, if no PCP go to Urgent Care Center or Emergency Room Smoking is Dangerous to Your Health. Avoid second hand smoke Call the 24-hour hour crisis hotline for domestic abuse at Sabino Conklin MD May 18, 2017 11:16
--- NOTE | 2017-05-18 11:17 | HHI.DS ---
Discharge Summary Admission Date May 13, 2017 at 16:13 Discharge Date: May 18, 2017 Admitting Diagnosis intractable back pain. History of metastatic lung CA. (1) Lung cancer metastatic to bone ICD Code: C34.90 - Malignant neoplasm of unspecified part of unspecified bronchus or lung; C79.51 - Secondary malignant neoplasm of bone Diagnosis: Secondary (2) Uncontrolled pain ICD Code: R52 - Pain, unspecified Diagnosis: Principal (3) HTN (hypertension) ICD Code: I10 - Essential (primary) hypertension (4) Lung cancer ICD Code: C34.90 - Malignant neoplasm of unspecified part of unspecified bronchus or lung Status: Chronic (5) Constipation ICD Code: K59.00 - Constipation, unspecified Status: Chronic Procedures radiation treatment Brief History - From Admission 72-year-old male complains of severe low back pain. Patient has history of lung cancer with metastatic to the back. Patient has been seen by oncologist Dr. Mayo and has been taking Dilaudid 2 mg every 6 hour and morphine sulfate 50 mg twice a day for pain. Patient states that he has severe pain to the low back today despite taking the pain medication. Patient denies any headache. Patient denies any chest pain or shortness of breath. Patient denies abdominal pain. Patient denies any focal weakness or numbness of extremity. Patient denies any bladder or bowel control problem. CBC/BMP: 05/14/17 0648 05/14/17 0648 Imaging Last Impressions Abdomen/Pelvis CT 05/14/17 1526 Signed Impressions: Service Date/Time: Sunday, May 14, 2017 16:43 - CONCLUSION: 1. Findings consistent with diffuse hepatic and osseous metastatic disease. 2. There is a destructive focal 1.8 x 1.9 cm mass in the superior posterior endplate of the L2 vertebral body with posterior cortical erosion. This may or account for patient's back pain. 3. There is also a 2.9 cm destructive mass involving the anterior right femoral neck which may predispose to pathologic fracture. 4. Bilateral adrenal masses with imaging features as previously described. 5. Stable axillary findings, as above. Juan Beebe MD PE at Discharge Lying in bed, awake, alert Abdomen soft, nontender, nondistended Hospital Course Patient was admitted, started on IV pain medication. Hematology/oncology was consulted. Throughout his stay the patient attempted palliative radiation therapy but experienced significant worsening of his pain just transferring from one bed to another just within transport within the building. Hospice was consulted as well as palliative care. Patient then ultimately decided that he wanted to proceed with hospice at [facility] and no longer proceed with radiation therapy or chemotherapy. Patient has been maximal benefit from hospitalization and is clinically stable for discharge to hospice. Pt Condition on Discharge: Stable Discharge Disposition: Hospice/Med Facility Discharge Time: <= 30 minutes Discharge Instructions DIET: Follow Instructions for: As Tolerated, No Restrictions Activities you can perform: See Additionl Instruction Other Activity Instructions: per hospice Continued Medications: Atenolol (Atenolol) 25 Mg Tab 25 MG PO DAILY for Blood Pressure Management, #30 TAB Cholecalciferol (Vitamin D3) 5,000 Unit Cap 5000 UNITS PO DAILY for Nutritional Supplement, #30 CAP 0 Refills Dexamethasone (Dexamethasone) 4 Mg Tab 4 MG PO Q6HR for Control Inflammation, #120 TAB Hydromorphone (Dilaudid) 2 Mg Tab 2 MG PO Q6H PRN for pain, #60 TAB Lactulose Liq (Lactulose Liq) 10 Gm/15 Ml Soln 30 ML PO QD for Constipation, #1000 ML 0 Refills Levothyroxine (Levothyroxine) 125 Mcg Tab 125 MCG PO DAILY for Thyroid, #30 TAB 0 Refills Lisinopril (Lisinopril) 20 Mg Tab 20 MG PO DAILY, #30 TAB 0 Refills Morphine ER (Morphine ER) 30 Mg Tab 30 MG PO Q12HR for Pain Management, #14 TAB Pantoprazole (Protonix) 20 Mg Tab 20 MG PO DAILY for Manage Heartburn, #30 TAB Sennosides-Docusate Sodium (Senna Plus 8.6-50 mg) 8.6 Mg-50 Mg Tab 1 TAB PO BID for Prevent Constipation, #60 TAB Sabino Conklin MD May 18, 2017 11:17
[2017-05-18 12:00] VITALS: BP 122/71; PULSE 73; RESP 16; TEMP 98.2; O2SAT 98
[2017-05-18] MEDS ORDERED: HYDROmorphone HCL PF 1 MG/ML VIAL IV PUSH SCH (12:00)
[2017-05-18] MEDS: SODIUM CHLORIDE 0.9% FLUSH 10 ML FLUSH IV FLUSH PRN (12:00)
[2017-05-18] MEDS ORDERED: LORazepam 2 MG/ML VIAL IV PUSH SCH (12:00)
[2017-05-18] MEDS ORDERED: LORazepam 2 MG/ML VIAL IV PUSH PRN (12:00)
[2017-05-18] MEDS: SIMETHICONE 125 MG CHEWABLE TAB PO PRN (12:04)
== END 2017-05-18 12:40 | disposition hospice, inpatient (51) | DRG 543 ==
LOC: NEPC 12:38 → NEDA 16:13 → HOCA 17:42
PROVIDERS: ADMIT Hospitalist; ATTEND Hospitalist
PROC: DPYC7ZZ Contact Radiation of Other Bone (ICD-10-PCS; principal; 2017-05-16)
DX: C79.51 Secondary malignant neoplasm of bone (principal); C78.7 Secondary malignant neoplasm of liver and intrahepatic bile duct; C79.89 Secondary malignant neoplasm of other specified sites; C34.91 Malignant neoplasm of unspecified part of right bronchus or lung; D72.829 Elevated white blood cell count, unspecified; I10 Essential (primary) hypertension; G89.3 Neoplasm related pain (acute) (chronic); E89.0 Postprocedural hypothyroidism; I44.7 Left bundle-branch block, unspecified; I25.10 Atherosclerotic heart disease of native coronary artery without angina pectoris; E78.00 Pure hypercholesterolemia, unspecified; I73.9 Peripheral vascular disease, unspecified; T38.0X5A Adverse effect of glucocorticoids and synthetic analogues, initial encounter; R73.9 Hyperglycemia, unspecified; F41.9 Anxiety disorder, unspecified; K59.03 Drug induced constipation; T40.2X5A Adverse effect of other opioids, initial encounter; E27.8 Other specified disorders of adrenal gland; F17.200 Nicotine dependence, unspecified, uncomplicated; Z51.5 Encounter for palliative care; Z66 Do not resuscitate; Z80.0 Family history of malignant neoplasm of digestive organs; Z85.850 Personal history of malignant neoplasm of thyroid; Z85.828 Personal history of other malignant neoplasm of skin; Z88.1 Allergy status to other antibiotic agents; Z95.5 Presence of coronary angioplasty implant and graft
CPT/HCPCS: 74177; 76937; 77290; 77295; 77300; 77334; 77387; 77412; 80053; 81001; 83036; 83735; 84100; 84439; 84443; 85007; 85025; 85027; 85610; 85730; 93005; 96361; 96374; 96375; 96376; J1170; J1650; J2060; J2212; J2405; J7030; J8540; Q9963; Q9967